=== PATIENT | male | born 1945 | race Caucasian/White ===

== ENCOUNTER 2023-02-23 13:13 | Inpatient (IN) | payer OTHER, SELFPAY ==
--- NOTE | 2023-02-23 | ECG_ITS ---
Test Reason : ALTERED MENTAL Blood Pressure : / mmHG Vent. Rate : 078 BPM Atrial Rate : 078 BPM P-R Int : 174 ms QRS Dur : 078 ms QT Int : 396 ms P-R-T Axes : 042 -30 037 degrees QTc Int : 451 ms Artifact in tracing Normal sinus rhythm Left axis deviation Abnormal ECG When compared with ECG of 27-JUL-2002 09:41, Vent. rate has decreased BY 41 BPM Referred By: Generic ED Physician Electronically Signed By:ALEXANDRE CASTELLANOS
--- NOTE | ~2023-02-23 | US_ITS ---
EXAMINATION: US RETROPERITONEAL LIMITED (RENAL ONLY) CLINICAL INFORMATION: Recurrent UTI. Possible history of bladder cancer. COMPARISON: None available. TECHNIQUE: Real-time imaging of the kidneys. FINDINGS: RIGHT KIDNEY: 11.2 x 4.6 x 5.5 cm (SAG x AP x TRV). The kidney is normal in size, contour, and echogenicity. Renal cortical thickness is normal. No calculi or focal parenchymal lesions. No hydronephrosis. LEFT KIDNEY: 11.2 x 5.2 x 4.8 cm (SAG x AP x TRV). The kidney is normal in size, contour, and echogenicity. Renal cortical thickness is normal. No renal calculi or hydronephrosis. 8 x 10 x 8 mm exophytic cyst in the midpole. US/US renal BI IMPRESSION: Small left renal cyst.
[2023-02-23 13:28] VITALS: BP 152/72; BP 153/66; PULSE 83; PULSE 88; RESP 18; TEMP 37.3; O2SAT 97; O2SAT 98; BMI 25.4
[2023-02-23 14:03] LABS: Basophils Absolute Auto 0.1 X10*3/uL (0.0-0.2); Basophils Percent Auto 0.7 % (0-2); Eosinophils Percent Auto 0.1 % (0-4); Hematocrit 40.1 % (42.0-52.0); Hemoglobin 13.9 g/dl (14.0-18.0); Imm Gran Abs Auto 0.08 X10*3/uL (0.00-0.03); Imm Gran Pct Auto 0.8 % (0.0-0.4); Lymphocytes Absolute Auto 1.5 X10*3/uL (1.2-4.9); Lymphocytes Percent Auto 14.7 % (20-40); MANUAL DIFF FLAG SCAN; Mean Corpuscular HGB Conc 34.7 g/dl (31.0-36.0); Mean Corpuscular Hemoglobin 33.6 pg (27.0-33.0); Mean Corpuscular Volume 96.9 fL (80.0-98.0); Monocytes Absolute Auto 0.8 X10*3/uL (0.1-1.2); Monocytes Percent Auto 7.8 % (2-11); Neutrophils Absolute Auto 7.6 x10*3/uL (2.0-8.3); Neutrophils Percent Auto 75.9 % (45-73); PLT CLUMP 1; Red Blood Count 4.14 X10*6/uL (4.60-5.80); Red Cell Distribution Width 13.4 % (11.0-16.0); SCAN SMEAR FLAG 1
--- NOTE | 2023-02-23 14:09 | PC.NURSE ---
Straight cath for urine with AJ PCT small amount of blood noted will CTM
[2023-02-23 14:22] LABS: Appearance Urine Clear; Color Urine Yellow; Glucose Urine UA >=1000 mg/dL (Negative); Leukocyte Esterase Urine Trace (Negative); Nitrite Urine Positive (Negative); PH 5.5 (5.0-9.0); Specific Gravity - Urine >= 1.030 (1.005-1.025); UMIC TRIGGER UACC YES; Urine Blood Large (3+) (Negative); Urine Ketones 15 mg/dL (Negative); Urine Protein 30 (1+) mg/dL (Neg-Trace)
[2023-02-23 14:27] LABS: Platelet Count 152 X10*3/uL (160-400); SLIDE REVIEW VERIFIED
[2023-02-23 14:31] LABS: Bacteria Urine 2+ (None Seen); Hyaline Casts Urine 0-2 /LPF (0-2); RBC Urine >20 /HPF (0-2); Squamous Epithelial Cell Urine 0-2 /HPF (0-2); UACC Culture Trigger YES; WBC Urine 21-50 /HPF (0-5)
[2023-02-23 14:51] LABS: Anion Gap 13 (12-20)
[2023-02-23 14:57] LABS: Alanine Aminotransferase 40 U/L (0-40); Albumin Level 3.8 g/dL (3.5-5.0); Alkaline Phosphatase 105 U/L (39-117); Aspartate Amino Transferase 30 U/L (5-37); Bilirubin Total 0.6 mg/dL (0.0-1.0); Blood Urea Nitrogen 19 mg/dL (9-16); Calcium 8.5 mg/dL (8.4-10.2); Carbon Dioxide 22 mmol/L (22-29); Chloride 110 mmol/L (96-108); Creatinine Clr Calc Pharmacy 57.2; Estimated Glomerular Filt Rate > 60; Glucose Random 213 mg/dL (60-115); Sodium 141 mmol/L (135-145); Total Protein 6.5 g/dL (6.5-8.0)
--- NOTE | 2023-02-23 15:29 | ED_ITS ---
HPI - Altered Mental Status General Chief Complaint: Altered Mental Status Stated Complaint: AMS per EMS Time Seen by Provider: 02/23/23 13:35 History of Present Illness HPI narrative: Patient is a 77-year-old male presents today with having increasing confusion EMS report patient has increased poly urea. Generalized malaise. Patient is from home. Feel very weak and tired. Sent in for further evaluation. Per EMS patient's sugars greater than 100. Patient is unable to give detailed history. Related Data Allergies Allergy/AdvReac Type Severity Reaction Status Date / Time No Known Allergies Allergy Unverified 08/12/20 14:34 Review of Systems Review of Systems: Unable to provide detailed reviews system secondary patient's change in mental status PMFSH Past Medical History Attestation statement: The following information was validated with the patient. Physical Exam ED Vital Signs: Vital Signs - 24 hr 02/23/23 13:28 Temperature 99.2 F Pulse Rate 83 Respiratory Rate 18 Blood Pressure 153/66 H Pulse Oximetry 97 Oxygen Delivery Method Room Air BMI result Body Mass Index 25.4 Appearance: Alert. Oriented to self and place. No acute distress. Eyes: Pupils equal, round and reactive to light. ENT: Pharynx normal. Neck: Normal inspection. Neck supple. No lymph nodes noted. No crepitus CVS: Normal heart rate and rhythm. Pulses normal. Normal S1 and S2 Respiratory: No respiratory distress. Breath sounds normal. No Wheezing. No rales Abdomen: Soft and nontender. No rigidity. No distention. good BS x4 Skin: Skin warm and dry. Normal skin color. Normal skin turgor. Extremities: No lower extremity edema. Neurovascular intact to all extremities. No Lacerations. No Rash Neuro: Oriented to self and place. No motor deficit. No sensory deficit. Moving all extermities. No slurred speech Medical Decision Making Medical Decision Making MDM Narrative: Patient had a low-grade temperature 99.2 degrees. White count was 10. Positive change in mental status generalized malaise weakness. Patient's urine was grossly infected. No previous culture was noted. Will start patient on Rocephin for empiric coverage. Lactate and culture ordered. Patient require admission IV hydration. In stable condition Differential Diagnosis Differential Diagnoses: The differential diagnosis associated with the presentation includes Urinary tract infection Admission/Observation Consideration of admission/observation: Escalation of care including admission/observation considered Consult Healthcare Provider Management of the patient was discussed with: Hospitalist Lab Data MDM Lab Attestation statement: I reviewed the patient's lab results. 02/23/23 13:30 02/23/23 14:33 Labs: Lab Results 02/23/23 02/23/23 02/23/23 Range/Units 13:30 14:06 14:33 WBC 10.0 (4.8-10.8) X10*3/uL RBC 4.14 L (4.60-5.80) X10*6/uL Hgb 13.9 L (14.0-18.0) g/dl Hct 40.1 L (42.0-52.0) % MCV 96.9 (80.0-98.0) fL MCH 33.6 H (27.0-33.0) pg MCHC 34.7 (31.0-36.0) g/dl RDW 13.4 (11.0-16.0) % Plt Count 152 L (160-400) X10*3/uL MPV Not Reportable Immature Gran % (Auto) 0.8 H (0.0-0.4) % Neut % (Auto) 75.9 H (45-73) % Lymph % (Auto) 14.7 L (20-40) % [place] % (Auto) 7.8 (2-11) % Eos % (Auto) 0.1 (0-4) % Baso % (Auto) 0.7 (0-2) % Lymph # (Auto) 1.5 (1.2-4.9) X10*3/uL [place] # (Auto) 0.8 (0.1-1.2) X10*3/uL Eos # (Auto) 0.0 (0.0-0.4) X10*3/uL Baso # (Auto) 0.1 (0.0-0.2) X10*3/uL Abs Immat Gran (auto) 0.08 H (0.00-0.03) X10*3/uL Absolute Neuts (auto) 7.6 (2.0-8.3) x10*3/uL Absolute Nucleated RBC 0.000 (0.0-0.012) X10*3/uL Nucleated RBC % (auto) 0.0 (0.0-0.2) /100WBC Smear Tech's Comments VERIFIED Sodium 141 (135-145) mmol/L Potassium 4.0 (3.3-5.1) mmol/L Chloride 110 H (96-108) mmol/L Carbon Dioxide 22 (22-29) mmol/L Anion Gap 13 (12-20) BUN 19 H (9-16) mg/dL Creatinine 0.99 (0.5-1.4) mg/dL Estim Creat Clear Calc 57.2 Estimated GFR > 60 Random Glucose 213 H (60-115) mg/dL Calcium 8.5 (8.4-10.2) mg/dL Total Bilirubin 0.6 (0.0-1.0) mg/dL AST 30 (5-37) U/L ALT 40 (0-40) U/L Alkaline Phosphatase 105 (39-117) U/L Total Protein 6.5 (6.5-8.0) g/dL Albumin 3.8 (3.5-5.0) g/dL Urine Color Yellow Urine Appearance Clear Urine pH 5.5 (5.0-9.0) Ur Specific [place] >= 1.030 H (1.005-1.025) Urine Protein 30 (1+) H (Neg-Trace) mg/dL Urine Glucose (UA) >=1000 H (Negative) mg/dL Urine Ketones 15 (Negative) mg/dL Urine Blood Large (3+) H (Negative) Urine Nitrite Positive H (Negative) Ur Leukocyte Esterase Trace H (Negative) Urine RBC >20 H (0-2) /HPF Urine WBC 21-50 H (0-5) /HPF Ur Squamous Epith Cells 0-2 (0-2) /HPF Urine Bacteria 2+ (None Seen) Hyaline Casts 0-2 (0-2) /LPF Independent Historian Clinical information obtained from an independent historian. History obtained from or confirmed by: EMS Discharge Plan Discharge Clinical Impression: Urinary tract infection Patient Disposition: Admitted As Inpatient
[2023-02-23] MEDS: 0.9 % Sodium Chloride 1,000 ML 999 ML IV (16:10)
[2023-02-23] MEDS: cefTRIAXone sodium 1 GM in 0.9 % Sodium Chloride 50 ML IV (16:21)
--- NOTE | 2023-02-23 16:21 | P.HPHOSP_ITS ---
History of Present Illness Date of Service: 02/23/23 Attending physician on admission: Jose Hunter Chief Complaint: confusion This is a 77 year old male who was sent to the ED by family due to confusion. Although the patient knows his name and that he was at [facility] he is unable to provide any significant history that led up to his arrival in the emergency department. He does state that he has been peeing frequently, But denies any abdominal pain, fever, chills. In the emergency department he was afebrile And lab work revealed no leukocytosis. Urinalysis was obtained and was consistent with urinary tract infection. Patient was treated with a dose of IV ceftriaxone in the decision was made to admit him to the hospital for further management. Patient's sister reports that he has been acting strange since Sunday, not monitoring his blood sugar like he typically does. He has no history of underlying cognitive impairment or diagnosis of dementia. She does report he has history of bladder issue and has frequent UTIs; He gets the majority of his medical care through the [place]. Review of Systems Review of Systems: Yes all other systems are reviewed and are negative Constitutional: Constitutional: Denies chills and Denies fever(s) Cardiovascular: Cardiovascular: Denies chest pain Gastrointestinal: Gastrointestinal: Denies abdominal pain [facility] Medical History (Updated 02/23/23 @ 16:25 by SAMI Grimaldo) Diabetes Neuropathy Pertinent family history: patient denies family history of diabetes, although due to confusion may not be accurate historian Social History (Updated 02/23/23 @ 16:26 by SAMI Grimaldo) Household Members: Family Housing: House Do you presently have visiting nurse or other home services: No Alcohol intake: never Patient Tobacco Use Status: Current someday Tobacco user Tobacco use type: Cigarette Cigarette Packs Per Day: 1 Cigarettes Per Day: 9 Years Smoked: 50 e-Cigarette/Vaping Use: Never Used Second Hand Smoke Exposure: Yes service: Yes Current occupational status: retired Meds Allergies Allergy/AdvReac Type Severity Reaction Status Date / Time No Known Allergies Allergy Unverified 08/12/20 14:34 Active Medications: Current Medications Acetaminophen (Acetaminophen 325 Mg Tablet) 650 mg PO Q6H PRN PRN Reason: Pain, Mild (Pain Scale 1-3) Docusate Sodium (Docusate Sodium 100 Mg Capsule) 100 mg PO DAILY PRN PRN Reason: Constipation Enoxaparin Sodium (Enoxaparin Sodium 40 Mg/0.4 Ml Syringe) 40 mg SUBCUT Q24H [facility] Sodium Chloride (Ns) 1,000 mls @ 999 mls/hr IV .Q1H1M [facility] Stop: 02/23/23 16:30 Ceftriaxone Sodium 1 gm/ (Sodium Chloride) 50 mls @ 100 mls/hr IV Q12H [facility] Ondansetron HCl (Ondansetron Hcl 4 Mg/2 Ml Vial) 4 mg IVPUSH Q8H PRN PRN Reason: Nausea and Vomiting Pharmacy Consult (Consult Rx Perform Med Rec) 1 each MISCELLANE ONCE PRN PRN Reason: Consult order Sodium Chloride (0.9 % Sodium Chloride Flush 3 Ml Syringe) 3 ml IVFLUSH QSHIFT [facility] Home Medications Medication Instructions Recorded Confirmed Last Taken Type alfuzosin 10 mg tablet,extended 10 mg PO DAILY 02/23/23 02/23/23 Unknown History release 24 hr aspirin 325 mg tablet 325 mg PO DAILY 02/23/23 02/23/23 Unknown History atenolol 25 mg tablet 25 mg PO DAILY 02/23/23 02/23/23 Unknown History atorvastatin 40 mg tablet 40 mg PO DAILY 02/23/23 02/23/23 Unknown History cholecalciferol (vitamin D3) 50 50 mcg PO DAILY 02/23/23 02/23/23 Unknown History mcg (2,000 unit) tablet (Vitamin D3) diltiazem HCl 240 mg capsule,24 240 mg PO DAILY 02/23/23 02/23/23 Unknown History hr,extended release hydrochlorothiazide 25 mg tablet 25 mg PO DAILY 02/23/23 02/23/23 Unknown History insulin aspart U-100 100 unit/mL See Protocol subcut TIDAC 02/23/23 02/23/23 Unknown History subcutaneous solution (Novolog U-100 Insulin aspart) insulin glargine 100 unit/mL 42 unit subcut DAILY 02/23/23 02/23/23 Unknown History subcutaneous solution (Lantus U-100 Insulin) latanoprost 0.005 % eye drops 1 drp ophthalmic (eye) BEDTIME 02/23/23 02/23/23 Unknown History oxybutynin chloride 5 mg tablet 5 mg PO BID 02/23/23 02/23/23 Unknown History pregabalin 150 mg capsule 150 mg PO BID 02/23/23 02/23/23 Unknown History sennosides 8.6 mg-docusate sodium 2 tab-cap PO BEDTIME 02/23/23 02/23/23 Unknown History 50 mg tablet (Senna-S) Physical Exam Vital Signs and Narrative: Vital Signs: Last Vital Signs Temp 99.2 F 02/23/23 13:28 Pulse 83 02/23/23 13:28 Resp 18 02/23/23 13:28 BP 153/66 H 02/23/23 13:28 Pulse Ox 97 02/23/23 13:28 O2 Del Method Room Air 02/23/23 13:28 BMI result Body Mass Index 25.4 Const: General: alert and awake Nutritional Appearance: average body habitus Orientation/consciousness: oriented to person and oriented to place Resp: Effort & Inspection: normal respiratory effort, able to speak in complete sentences, no respiratory distress and no use of accessory muscles Cardio: Rate: regular rate Heart sounds: S1 normal heart sound present and S2 normal heart sound present GI: Inspection: No distended Palpation (GI): Soft to palpation and nontender Skin: Other: scalp/chest with black hair dye residue Neuro: Other: slow to respond. no focal deficits. appreciated. General: oriented to person and oriented to place Extrem: General: Yes no pedal edema Results Labs 02/23/23 13:30 02/23/23 14:33 Labs: Laboratory Results - last 24 hr 02/23/23 02/23/23 02/23/23 13:30 14:06 14:33 MCV 96.9 MCH 33.6 H MCHC 34.7 RDW 13.4 Plt Count 152 L MPV Not Reportable Immature Gran % (Auto) 0.8 H Neut % (Auto) 75.9 H Lymph % (Auto) 14.7 L [place] % (Auto) 7.8 Eos % (Auto) 0.1 Baso % (Auto) 0.7 Lymph # (Auto) 1.5 [place] # (Auto) 0.8 Eos # (Auto) 0.0 Baso # (Auto) 0.1 Abs Immat Gran (auto) 0.08 H Absolute Neuts (auto) 7.6 Absolute Nucleated RBC 0.000 Nucleated RBC % (auto) 0.0 Smear Tech's Comments VERIFIED Anion Gap 13 Estim Creat Clear Calc 57.2 Estimated GFR > 60 Random Glucose 213 H Calcium 8.5 Total Bilirubin 0.6 AST 30 ALT 40 Alkaline Phosphatase 105 Total Protein 6.5 Albumin 3.8 Urine Color Yellow Urine Appearance Clear Urine pH 5.5 Ur Specific [place] >= 1.030 H Urine Protein 30 (1+) H Urine Glucose (UA) >=1000 H Urine Ketones 15 Urine Blood Large (3+) H Urine Nitrite Positive H Ur Leukocyte Esterase Trace H Urine RBC >20 H Urine WBC 21-50 H Ur Squamous Epith Cells 0-2 Urine Bacteria 2+ Hyaline Casts 0-2 Assessment and Plan (1) Urinary tract infection: Status: Acute Plan this is a 77-year-old male with history of diabetes and peripheral neuropathy who presented to the emergency department with 5 day history of increasing confusion found to have UTI UTI no evidence of sepsis sister reports h/o bladder issue and recurrent UTI no previous imaging/ will obtain abdominal US to eval bladder IV ceftriaxone follow urine culture acute toxic encephalopathy r/t UTI T2DM SSI, POCs, ADA diet thrombocytopenia no baseline for comparison follow CBC med rec pending at this time dvt ppx - lovenox code status - full code attending - dr. hunter patient will likely require 2 midnight stay in the hospital for management of encephalopathy and UTI Time Spent With Patient Time: Total time managing care of this patient today ____ minutes. Quality Stroke Does the patient have a stroke diagnosis?: No VTE Prior VTE?: No VTE Risk Level:: Medical - moderate - high VTE Device Contraindication: N/A - Device Ordered VTE Drug Contraindication: N/A - Med Ordered
[2023-02-23 16:25] VITALS: BP 141/49; PULSE 82; RESP 16; TEMP 37; O2SAT 97
[2023-02-23 16:43] LABS: Lactic Acid 1.2 mmol/L (0.5-2.0)
[2023-02-23 16:44] LABS: COVID-19 Test Negative (Negative); IDNOW Serial# BCCEAD1C
[2023-02-23] MEDS: Enoxaparin Sodium 40 MG/0.4 ML SYRINGE SUBCUT (17:07)
[2023-02-23 17:40] VITALS: BP 139/57; PULSE 52; RESP 16; O2SAT 97
[2023-02-23 18:25] LABS: Glucose, Whole Blood 133 mg/dL (60-115)
--- NOTE | 2023-02-23 19:26 | PC.NURSE ---
Pt states his pharmacy is [facility] and could not provide a city/town. Pt admitted to Med-surg floor 18:10.
[2023-02-23 20:31] LABS: Glucose, Whole Blood 161 mg/dL (60-115)
[2023-02-23] MEDS: Insulin Lispro 100 UNIT/ML 3 ML VIAL SUBCUT (20:55)
[2023-02-23] MEDS: 0.9 % Sodium Chloride Flush 3 ML SYRINGE IVFLUSH (20:55)
[2023-02-23] MEDS: Sennosides/Docusate Sodium TABLET 2 TAB PO (21:03)
[2023-02-23] MEDS: Pregabalin 150 MG CAPSULE PO (21:04)
[2023-02-23] MEDS: Latanoprost 0.005 % Ophth Sol 2.5 ML DROPS 1 DROP EYE-BOTH (21:30)
[2023-02-24 02:48] VITALS: BP 149/65; PULSE 57; RESP 17; TEMP 36.3; O2SAT 96
[2023-02-24 07:22] VITALS: BP 152/69; PULSE 45; RESP 14; TEMP 36.3; O2SAT 95
--- NOTE | 2023-02-24 10:07 | HO.PM.IMPN ---
Subjective Subjective Date of Service: 02/24/23 Review of Systems Follow up UTI feeling better Physical Exam Vital Signs: Vital Signs: Last Vital Signs Temp 97.3 F 02/24/23 07:22 Pulse 45 L 02/24/23 07:22 Resp 14 02/24/23 07:22 BP 152/69 H 02/24/23 07:22 Pulse Ox 95 02/24/23 07:22 O2 Del Method Room Air 02/24/23 07:22 BMI result Body Mass Index 25.4 Appearing in no acute distress lung sounds are clear to auscultation heart regular rate rhythm, clear S1, S2 positive bowel sounds, abdomen is soft, nontender neuro patient is alert x3, no focal deficits Objective Data Active Medications Acetaminophen (Acetaminophen 325 Mg Tablet) 650 mg PO Q6H PRN PRN Reason: Pain, Mild (Pain Scale 1-3) Aspirin (Aspirin 325 Mg Tablet) 325 mg PO DAILY [facility] Atenolol (Atenolol 25 Mg Tablet) 25 mg PO DAILY [facility]; Protocol Atorvastatin Calcium (Atorvastatin Calcium 40 Mg Tablet) 40 mg PO DAILY [facility] Diltiazem HCl (Diltiazem Hcl Cd 240 Mg Cap.Er.Deg) 240 mg PO DAILY [facility]; Protocol Docusate Sodium (Docusate Sodium 100 Mg Capsule) 100 mg PO DAILY PRN PRN Reason: Constipation Enoxaparin Sodium (Enoxaparin Sodium 40 Mg/0.4 Ml Syringe) 40 mg SUBCUT Q24H [facility] Last Admin: 02/23/23 17:07 Dose: 40 mg Documented By: JORGE Glucose (Glucose Gel 15 Gm Gel..Gram.) 15 gm PO Q15M PRN; Protocol PRN Reason: per Hypoglycemia Standing Ord. Hydrochlorothiazide (Hydrochlorothiazide 25 Mg Tablet) 25 mg PO DAILY [facility]; Protocol Ceftriaxone Sodium 1 gm/ (Sodium Chloride) 50 mls @ 100 mls/hr IV Q12H [facility] Dextrose (D10) 250 mls @ 750 mls/hr IV Q15M PRN; Protocol PRN Reason: per Hypoglycemia Standing Ord. Insulin Glargine (Insulin Glargine,Hum.Rec.Anlog 100 Unit/Ml 10 Ml Vial) 35 unit SUBCUT DAILY [facility] Insulin Human Lispro (Insulin Lispro 100 Unit/Ml 3 Ml Vial) 0 unit SUBCUT QIDACHS [facility]; Protocol Last Admin: 02/24/23 07:41 Dose: Not Given Documented By: ARMIN Non-Admin Reason: No Insulin Coverage Latanoprost (Latanoprost 0.005 % Ophth [place] 2.5 Ml Drops) 1 drop EYE-BOTH BEDTIME [facility] Last Admin: 02/23/23 21:30 Dose: 1 drop Documented By: OSVALDO Ondansetron HCl (Ondansetron Hcl 4 Mg/2 Ml Vial) 4 mg IVPUSH Q8H PRN PRN Reason: Nausea and Vomiting Oxybutynin Chloride (Oxybutynin Chloride Er 5 Mg Tab.Er.24) 10 mg PO DAILY [facility] Pharmacy Consult (Consult Rx Perform Med Rec) 1 each MISCELLANE ONCE PRN PRN Reason: Consult order Pregabalin (Pregabalin 150 Mg Capsule) 150 mg PO BID [facility] Last Admin: 02/23/23 21:04 Dose: 150 mg Documented By: OSVALDO Senna/Docusate Sodium (Sennosides/Docusate Sodium Tablet) 2 tab PO BEDTIME [facility] Last Admin: 02/23/23 21:03 Dose: 2 tab Documented By: OSVALDO Sodium Chloride (0.9 % Sodium Chloride Flush 3 Ml Syringe) 3 ml IVFLUSH QSHIFT [facility] Last Admin: 02/23/23 20:55 Dose: 3 ml Documented By: OSVALDO Tamsulosin HCl (Tamsulosin Hcl 0.4 Mg Capsule) 0.4 mg PO DAILY [facility] Vitamin D (Cholecalciferol (Vitamin D3) 25 Mcg Tablet) 50 mcg PO DAILY [facility] Labs 02/23/23 13:30 02/23/23 14:33 Labs: Laboratory Results - last 24 hr 02/23/23 02/23/23 02/23/23 13:30 14:06 14:33 MCV 96.9 MCH 33.6 H MCHC 34.7 RDW 13.4 Plt Count 152 L MPV Not Reportable Immature Gran % (Auto) 0.8 H Neut % (Auto) 75.9 H Lymph % (Auto) 14.7 L [place] % (Auto) 7.8 Eos % (Auto) 0.1 Baso % (Auto) 0.7 Lymph # (Auto) 1.5 [place] # (Auto) 0.8 Eos # (Auto) 0.0 Baso # (Auto) 0.1 Abs Immat Gran (auto) 0.08 H Absolute Neuts (auto) 7.6 Absolute Nucleated RBC 0.000 Nucleated RBC % (auto) 0.0 Smear Tech's Comments VERIFIED Anion Gap 13 Estim Creat Clear Calc 57.2 Estimated GFR > 60 POC Glucose Random Glucose 213 H Lactic Acid Calcium 8.5 Total Bilirubin 0.6 AST 30 ALT 40 Alkaline Phosphatase 105 Total Protein 6.5 Albumin 3.8 Urine Color Yellow Urine Appearance Clear Urine pH 5.5 Ur Specific [place] >= 1.030 H Urine Protein 30 (1+) H Urine Glucose (UA) >=1000 H Urine Ketones 15 Urine Blood Large (3+) H Urine Nitrite Positive H Ur Leukocyte Esterase Trace H Urine RBC >20 H Urine WBC 21-50 H Ur Squamous Epith Cells 0-2 Urine Bacteria 2+ Hyaline Casts 0-2 COVID-19 (BIJAN) COVID-19 Clin Com 02/23/23 02/23/23 02/23/23 16:07 16:16 18:10 MCV MCH MCHC RDW Plt Count MPV Immature Gran % (Auto) Neut % (Auto) Lymph % (Auto) [place] % (Auto) Eos % (Auto) Baso % (Auto) Lymph # (Auto) [place] # (Auto) Eos # (Auto) Baso # (Auto) Abs Immat Gran (auto) Absolute Neuts (auto) Absolute Nucleated RBC Nucleated RBC % (auto) Smear Tech's Comments Anion Gap Estim Creat Clear Calc Estimated GFR POC Glucose 133 H Random Glucose Lactic Acid 1.2 Calcium Total Bilirubin AST ALT Alkaline Phosphatase Total Protein Albumin Urine Color Urine Appearance Urine pH Ur Specific [place] Urine Protein Urine Glucose (UA) Urine Ketones Urine Blood Urine Nitrite Ur Leukocyte Esterase Urine RBC Urine WBC Ur Squamous Epith Cells Urine Bacteria Hyaline Casts COVID-19 (BIJAN) Negative COVID-19 Clin Com See Note 02/23/23 20:25 MCV MCH MCHC RDW Plt Count MPV Immature Gran % (Auto) Neut % (Auto) Lymph % (Auto) [place] % (Auto) Eos % (Auto) Baso % (Auto) Lymph # (Auto) [place] # (Auto) Eos # (Auto) Baso # (Auto) Abs Immat Gran (auto) Absolute Neuts (auto) Absolute Nucleated RBC Nucleated RBC % (auto) Smear Tech's Comments Anion Gap Estim Creat Clear Calc Estimated GFR POC Glucose 161 H Random Glucose Lactic Acid Calcium Total Bilirubin AST ALT Alkaline Phosphatase Total Protein Albumin Urine Color Urine Appearance Urine pH Ur Specific [place] Urine Protein Urine Glucose (UA) Urine Ketones Urine Blood Urine Nitrite Ur Leukocyte Esterase Urine RBC Urine WBC Ur Squamous Epith Cells Urine Bacteria Hyaline Casts COVID-19 (BIJAN) COVID-19 Clin Com Assessment and Plan (1) Urinary tract infection: Status: Acute Plan 77-year-old male with history of diabetes and peripheral neuropathy who presented to the emergency department with 5 day history of increasing confusion found to have UTI UTI no evidence of sepsis sister reports h/o bladder issue and recurrent UTI abdominal US showing small renal cyst IV ceftriaxone follow urine culture acute toxic encephalopathy. resolving r/t UTI T2DM SSI, POCs, ADA diet thrombocytopenia no baseline for comparison follow CBC dvt ppx - lovenox code status - full code attending - Dr. Vivas continue hospital stay for management of encephalopathy and UTI Time Spent With Patient Time: Total time managing care of this patient today ____ minutes. Quality Stroke Does the patient have a stroke diagnosis?: No VTE Prior VTE?: No VTE Risk Level:: Medical - moderate - high VTE Device Contraindication: N/A - Device Ordered VTE Drug Contraindication: N/A - Med Ordered
[2023-02-24 10:30] VITALS: BP 130/60; PULSE 47
[2023-02-24] MEDS: Pregabalin 150 MG CAPSULE PO ×2 (10:44→21:15)
[2023-02-24] MEDS: Cholecalciferol (Vitamin D3) 25 MCG TABLET 50 MCG PO (10:44)
[2023-02-24] MEDS: Atorvastatin Calcium 40 MG TABLET PO (10:45)
[2023-02-24] MEDS: Tamsulosin HCL 0.4 MG CAPSULE PO (10:45)
[2023-02-24] MEDS: hydroCHLOROthiazide 25 MG TABLET PO (10:45)
[2023-02-24] MEDS: oxyBUTYnin chloride ER 5 MG TAB.ER.24 10 MG PO (10:46)
[2023-02-24] MEDS: Insulin Glargine,Hum.rec.anlog 100 UNIT/ML 10 ML VIAL 35 UNIT SUBCUT (10:46)
[2023-02-24 11:32] LABS: Glucose, Whole Blood 229 mg/dL (60-115)
[2023-02-24 11:32] LABS: Glucose, Whole Blood 142 mg/dL (60-115)
[2023-02-24] MEDS: Insulin Lispro 100 UNIT/ML 3 ML VIAL SUBCUT ×2 (11:52→21:15)
[2023-02-24] MEDS: cefTRIAXone sodium 1 GM in 0.9 % Sodium Chloride 50 ML IV (14:40)
[2023-02-24] MEDS: 0.9 % Sodium Chloride Flush 3 ML SYRINGE IVFLUSH ×2 (14:40→21:16)
[2023-02-24 15:17] VITALS: BP 107/52; PULSE 58; RESP 16; TEMP 36.4; O2SAT 97
--- NOTE | 2023-02-24 15:32 | MHC.CM.PN ---
PT REPORTS HE LIVES WITH HIS SISTER AND TWO BROTHERS HE IS INDEPENDENT WITH CARE AND DRIVES PT HAS NO SERVICES AND NO DME [facility] [place] [facility]S HE DECLINES TO COMPLETE A HCP HE IS [facility]OME[facility] DCP: HOME NO SERVICES PT WILL NEED TRANSPORT ARRANGED
[2023-02-24 16:13] LABS: Glucose, Whole Blood 149 mg/dL (60-115)
[2023-02-24] MEDS: Enoxaparin Sodium 40 MG/0.4 ML SYRINGE SUBCUT (16:24)
[2023-02-24 19:10] VITALS: BP 131/61; PULSE 64; RESP 17; TEMP 36.2; O2SAT 95
[2023-02-24 20:47] LABS: Glucose, Whole Blood 265 mg/dL (60-115)
[2023-02-24] MEDS: Latanoprost 0.005 % Ophth Sol 2.5 ML DROPS 1 DROP EYE-BOTH (21:15)
[2023-02-24] MEDS: Sennosides/Docusate Sodium TABLET 2 TAB PO (21:15)
[2023-02-25] MEDS: cefTRIAXone sodium 1 GM in 0.9 % Sodium Chloride 50 ML IV (03:15)
[2023-02-25 03:21] VITALS: BP 137/63; PULSE 53; RESP 17; TEMP 36.6; O2SAT 95
[2023-02-25 07:37] VITALS: BP 156/67; PULSE 57; RESP 18; TEMP 37.1; O2SAT 95
[2023-02-25 07:52] LABS: Glucose, Whole Blood 104 mg/dL (60-115)
--- NOTE | 2023-02-25 09:04 | MHC.CM.PN ---
Addendum entered by Saba Denise 02/25/23 11:19: PT SUCCESSFULLY PICKED UP FOR TRANSPORT Addendum entered by Saba Denise 02/25/23 10:50: LYFT HAS INDICATED A CAR WILL BE COMING AT APPROXIMATELY 1110 HOURS: [facility] CONSULTANT: FREEMAN LOVE OUTBACK PLATE# [id number] Original Note: PT WILL DC HOME TODAY WITH NO SERVICES PT DOES NOT HAVE TRANSPORT HE IS AWARE CM WILL SCHEDULE A LYFT FOR 1100 HOURS AND LET HIM KNOW IF THERE ARE ANY CHANGES DUE TO CAR AVAILABILITY
[2023-02-25] MEDS: Pregabalin 150 MG CAPSULE PO (09:50)
[2023-02-25] MEDS: Atorvastatin Calcium 40 MG TABLET PO (09:50)
[2023-02-25] MEDS: Cholecalciferol (Vitamin D3) 25 MCG TABLET 50 MCG PO (09:50)
[2023-02-25] MEDS: 0.9 % Sodium Chloride Flush 3 ML SYRINGE IVFLUSH (09:50)
[2023-02-25] MEDS: hydroCHLOROthiazide 25 MG TABLET PO (09:50)
[2023-02-25] MEDS: Tamsulosin HCL 0.4 MG CAPSULE PO (09:50)
[2023-02-25] MEDS: oxyBUTYnin chloride ER 5 MG TAB.ER.24 10 MG PO (09:50)
[2023-02-25] MEDS: Insulin Glargine,Hum.rec.anlog 100 UNIT/ML 10 ML VIAL 35 UNIT SUBCUT (09:50)
--- NOTE | 2023-02-25 10:00 | P.DS_ITS ---
DS: Providers Provider Date of Service: 02/25/23 Date of admission: 02/23/23 16:15 Primary care physician: Unknown Physician DS: Diagnosis Discharge Diagnosis (1) Urinary tract infection: Status: Acute DS: Summary Hospital Course Hospital Course: HP as per admitting provider This is a 77 year old male who was sent to the ED by family due to confusion.? Although the patient knows his name and that he was at [facility] he is unable to provide any significant history that led up to his arrival in the emergency department. He does state that he has been peeing frequently, ? But denies any abdominal pain, fever, chills.? In the emergency department he was afebrile ? And lab work revealed no leukocytosis.? Urinalysis was obtained and was consistent with urinary tract infection.? Patient was treated with a dose of IV ceftriaxone in the decision was made to admit him to the hospital for further management.? Patient's sister reports that he has been acting strange since Sunday, not monitoring his blood sugar like he typically does.? He has no history of underlying cognitive impairment or diagnosis of dementia.? She does report he has history of bladder issue and has frequent UTIs; ? [facility] UTI no evidence of sepsis sister reports h/o bladder issue and recurrent UTI abdominal US showing small renal cyst urine culture staph epidermis, responded to rocephin, continue 5 more days ceftin acute toxic encephalopathy. Resolved r/t UTI T2DM SSI, POCs, ADA diet thrombocytopenia no baseline for comparison Time Spent with Patient Time attestation: Total time managing care of this patient today ____ minutes. Discharge coordination time: Greater than 30 minutes Quality: Safe Use of Opioids Does Pt have an Active Cancer Diagnosis on the Problem List?: No Quality: Stroke Does the patient have a stroke diagnosis?: No Physical Exam Vital Signs: Vital Signs: Last Vital Signs Temp 98.7 F 02/25/23 07:37 Pulse 57 02/25/23 07:37 Resp 18 02/25/23 07:37 BP 156/67 H 02/25/23 07:37 Pulse Ox 95 02/25/23 07:37 O2 Del Method Room Air 02/25/23 07:37 BMI result Body Mass Index 25.4 Appearing in no acute distress head is normocephalic atraumatic eyes pupils are PERRLA sclera is anicteric mouth throat mucous membranes are intact and moist neck is supple no lymphadenopathy, no JVD noted lung sounds are clear to auscultation heart regular rate rhythm, clear S1, S2 positive bowel sounds, abdomen is soft, nontender neuro patient is alert x3, no focal deficits DS: Data Data Completed and Pending Labs on day of discharge: Laboratory Results - last 24 hr 02/24/23 02/24/23 02/24/23 07:31 11:28 16:08 POC Glucose 142 H 229 H 149 H 02/24/23 02/25/23 20:43 07:41 POC Glucose 265 H 104 Preliminary micro results at discharge 02/23/23 16:16 Blood Culture - Preliminary Blood - Venous No growth after 24 hours. 02/23/23 16:16 Blood Culture - Preliminary Blood - Venous No growth after 24 hours. Discharge Plan Discharge Anticipated Discharge Date/Time: 02/25/23 09:52 Patient Disposition: Home, Self-Care Discharge Diagnosis: UTI Metabolic encephalopathy Discharge Medications: New cefuroxime axetil 500 mg tablet 500 mg PO BID Qty: 10 0RF Continued latanoprost 0.005 % Drops 1 drp OPHTHALMIC (EYE) BEDTIME atorvastatin 40 mg Tablet 40 mg PO DAILY insulin glargine [Lantus U-100 Insulin] 100 unit/mL Solution 42 unit SUBCUT DAILY aspirin 325 mg Tablet 325 mg PO DAILY sennosides-docusate sodium [Senna-S] 8.6-50 mg Tablet 2 tab-cap PO BEDTIME atenolol 25 mg Tablet 25 mg PO DAILY diltiazem HCl 240 mg Capsule,Extended Release 24 Hr 240 mg PO DAILY insulin aspart U-100 [Novolog U-100 Insulin aspart] 100 unit/mL Solution See Protocol SUBCUT TIDAC Protocol: Insulin Correction Scale Less than or equal to 110 ---- Give (units): 0 111 to 150 Give (units): 0 151 to 200 Give (units): 2 201 to 250 Give (units): 4 251 to 300 Give (units): 6 301 to 350 Give (units): 8 Greater than 350 Give (units): 10 Call MD if Blood Glucose > : 350 hydrochlorothiazide 25 mg Tablet 25 mg PO DAILY oxybutynin chloride 5 mg Tablet 5 mg PO BID alfuzosin 10 mg Tablet Extended Release 24 Hr 10 mg PO DAILY Rx Instructions: administer after the same meal each day pregabalin 150 mg Capsule 150 mg PO BID cholecalciferol (vitamin D3) [Vitamin D3] 50 mcg (2,000 unit) Tablet 50 mcg PO DAILY Discharge Orders: Discharge Order (Routine); Ordered 02/25/23 Ordered By: Nimco Askew Diet: Advance to usual diet Activity on Discharge: As tolerated Stand Alone Forms: Patient Portal Discharge page Care Plan Goals: Complete resolution of symptoms Health Concerns: UTI Metabolic encephalopathy Plan of Treatment: Follow up with primary care provider as needed Take all medications as prescribed Assessment: See discharge
== END 2023-02-25 11:23 | disposition home or self-care (01) | DRG 689 ==
LOC: HO.ED 15:58 → HO.EDOVER 16:30 → HO.S3 16:42
PROVIDERS: Admitting Provider Physician Assistant Medical; Emergency Provider Emergency Medicine Emergency Medical Services; Visit Provider Nurse Practitioner Acute Care
DX: N39.0 Urinary tract infection, site not specified (principal); G92.8 Other toxic encephalopathy; E11.42 Type 2 diabetes mellitus with diabetic polyneuropathy; N28.1 Cyst of kidney, acquired; D69.6 Thrombocytopenia, unspecified; F17.210 Nicotine dependence, cigarettes, uncomplicated; Z20.822 Contact with and (suspected) exposure to COVID-19; Z71.6 Tobacco abuse counseling; Z79.82 Long term (current) use of aspirin; Z79.4 Long term (current) use of insulin; Z79.899 Other long term (current) drug therapy
CPT/HCPCS: 36415; 76775; 80053; 81001; 82947; 83605; 85025; 87040; 87086; 87088; 87186; 87635; 93005; 99285; J0696; J1650

== ENCOUNTER 2023-06-28 04:53 | Emergency (ER) | payer OTHER, SELFPAY ==
[2023-06-28 05:18] VITALS: BP 153/42; PULSE 58; RESP 18; TEMP 36.1; O2SAT 98; BMI 26.9
[2023-06-28 05:19] LABS: Hematocrit 44.9 % (42.0-52.0); Hemoglobin 15.4 g/dl (14.0-18.0); Mean Corpuscular HGB Conc 34.3 g/dl (31.0-36.0); Mean Corpuscular Hemoglobin 33.6 pg (27.0-33.0); Mean Corpuscular Volume 97.8 fL (80.0-98.0); Mean Platelet Volume 9.8 fL (9.4-12.4); Platelet Count 268 X10*3/uL (160-400); Red Blood Count 4.59 X10*6/uL (4.60-5.80); Red Cell Distribution Width 13.2 % (11.0-16.0); White Blood Count 9.4 X10*3/uL (4.8-10.8)
--- NOTE | 2023-06-28 05:33 | ED_ITS ---
HPI - Wound/Laceration General Chief Complaint: Wound/Laceration Stated Complaint: diabetic, bruised moore Time Seen by Provider: 06/28/23 05:27 Source: patient Mode of arrival: ambulatory Limitations: no limitations History of Present Illness HPI narrative: Patient comes to the emergency room complaining of an open wound to the left moore. Patient states that he accidentally scraped it. Patient has chronic venous stasis, patient diabetic. Patient denies fever chills, only localized discomfort but no severe pain. Related Data Home Medications Medication Instructions Recorded Confirmed alfuzosin 10 mg tablet,extended 10 mg PO DAILY 02/23/23 02/23/23 release 24 hr aspirin 325 mg tablet 325 mg PO DAILY 02/23/23 02/23/23 atenolol 25 mg tablet 25 mg PO DAILY 02/23/23 02/23/23 atorvastatin 40 mg tablet 40 mg PO DAILY 02/23/23 02/23/23 cholecalciferol (vitamin D3) 50 50 mcg PO DAILY 02/23/23 02/23/23 mcg (2,000 unit) tablet (Vitamin D3) diltiazem HCl 240 mg capsule,24 240 mg PO DAILY 02/23/23 02/23/23 hr,extended release hydrochlorothiazide 25 mg tablet 25 mg PO DAILY 02/23/23 02/23/23 insulin aspart U-100 100 unit/mL See Protocol subcut TIDAC 02/23/23 02/23/23 subcutaneous solution (Novolog U-100 Insulin aspart) insulin glargine 100 unit/mL 42 unit subcut DAILY 02/23/23 02/23/23 subcutaneous solution (Lantus U-100 Insulin) latanoprost 0.005 % eye drops 1 drp ophthalmic (eye) BEDTIME 02/23/23 02/23/23 oxybutynin chloride 5 mg tablet 5 mg PO BID 02/23/23 02/23/23 pregabalin 150 mg capsule 150 mg PO BID 02/23/23 02/23/23 sennosides 8.6 mg-docusate sodium 2 tab-cap PO BEDTIME 02/23/23 02/23/23 50 mg tablet (Senna-S) Previous Rx's Medication Instructions Recorded cefuroxime axetil 500 mg tablet 500 mg PO BID #10 tabs 02/25/23 cephalexin 500 mg capsule 500 mg PO BID #14 caps 06/28/23 doxycycline hyclate 100 mg capsule 100 mg PO BID #14 caps 06/28/23 Allergies Allergy/AdvReac Type Severity Reaction Status Date / Time No Known Allergies Allergy Unverified 08/12/20 14:34 Review of Systems Review of Systems: Constitutional : No Weight loss, No Fever, No Chills, No Night Sweats, No Fatigue, No Malaise ENT/Mouth : No Hearing loss, No Ear Pain, No Nasal Congestion, No Sinus Pain, No Hoarseness, No sore throat, No Rhinorrhea, No Swallowing Difficulty Eyes: No Eye Pain, No Swelling, No Redness, No Foreign Body, No Discharge, No Vision Changes Cardiovascular : No Chest Pain, No SOB, No Dyspnea on Exertion, No Orthopnea, No Edema, No Palpitations Respiratory : No Cough, No Sputum, No Wheezing, No Smoke Exposure, No Dyspnea Gastrointestinal : No Nausea, No Vomiting, No Diarrhea, No Constipation, No a bdominal Pain, No Hematochezia, No Melena Genitourinary : no irregular bleeding, No Dysuria, No Urinary Frequency, No Hematuria, No Urinary Incontinence, No Urgency, No Flank Pain, No Urinary Flow Changes, No Hesitancy Musculoskeletal : Complaining of an open abrasion on the moore area on the left leg, No joint pain, No Myalgias, No Joint Swelling Skin : No Skin Lesions, No rash Neuro : No Weakness, No Numbness, No Paresthesias, No Loss of Consciousness, No Dizziness, No Headache Psych : No Anxiety/Panic, No Depression, No SI/HI/AH/VH, No Social Issues, Heme/Lymph: No Bruising, No Bleeding,No Lymphadenopathy Endocrine : No Polyuria, No Polydipsia, No Temperature Intolerance [facility] Past Medical History Medical History Diabetes Neuropathy Social History Social History (Updated 02/23/23 @ 16:26 by SAMI Grimaldo) Household Members: Family Housing: House Do you presently have visiting nurse or other home services: No Alcohol intake: never Patient Tobacco Use Status: Current someday Tobacco user Tobacco use type: Cigarette Cigarette Packs Per Day: 1 Cigarettes Per Day: 9 Years Smoked: 50 Smoked in Last 30 Days: Yes e-Cigarette/Vaping Use: Never Used Second Hand Smoke Exposure: Yes Use of substances other than those prescribed or required for medical reasons: No Advance Directives: No Advance Directives Information Provided: No service: Yes Current occupational status: retired Physical Exam Vital Signs: Vital Signs: Last Vital Signs Temp 98.8 F 06/28/23 06:17 Pulse 52 06/28/23 06:17 Resp 14 06/28/23 06:17 BP 126/53 L 06/28/23 06:17 Pulse Ox 95 06/28/23 06:17 O2 Del Method Room Air 06/28/23 06:17 BMI result Body Mass Index 26.9 Const: Other: Appearance: Alert. Oriented X3. No acute distress. Eyes: Pupils equal, round and reactive to light. ENT: Pharynx normal. Neck: Normal inspection. Neck supple. No lymph nodes noted. No crepitus CVS: Normal heart rate and rhythm. Pulses normal. Normal S1 and S2 Respiratory: No respiratory distress. Breath sounds normal. No Wheezing. No rales Abdomen: Soft and nontender. No rigidity. No distention. Skin: Skin warm and dry. Normal skin color. Normal skin turgor. Extremities: No lower extremity edema. No Lacerations. No Rash. Patient has an abrasion to the moore area in the left lower extremity, mild cellulitis, no pus drainage Neuro: Oriented X 3. No motor deficit. No sensory deficit. Moving all extremities. No slurred speech. CN 2 through 12 grossly intact Psych: calm, cooperative, normal affect Course Course Course Narrative: -all of patient's labs pending Medical Decision Making Medical Decision Making [facility] Narrative: My interpretation of labs: White blood cell count normal. Patient's lactic acid is slightly bumped, unlikely to be from infectious etiology. Patient's blood pressure normal, no fever, not tachycardic. Patient given p.o. antibiotics, Keflex and doxycycline, instructed to follow-up with his primary care physician. Differential Diagnosis Differential Diagnoses: The differential diagnosis associated with the presentation includes (Cellulitis, chronic venous stasis derm abrasion) Lab Data [facility] Lab Attestation statement: I reviewed the patient's lab results. 06/28/23 05:13 06/28/23 05:13 Labs: Lab Results 06/28/23 06/28/23 06/28/23 Range/Units 05:13 05:13 05:13 WBC 9.4 (4.8-10.8) X10*3/uL RBC 4.59 L (4.60-5.80) X10*6/uL Hgb 15.4 (14.0-18.0) g/dl Hct 44.9 (42.0-52.0) % MCV 97.8 (80.0-98.0) fL MCH 33.6 H (27.0-33.0) pg MCHC 34.3 (31.0-36.0) g/dl RDW 13.2 (11.0-16.0) % Plt Count 268 D (160-400) X10*3/uL MPV 9.8 (9.4-12.4) fL Absolute Nucleated RBC 0.000 (0.0-0.012) X10*3/uL Nucleated RBC % (auto) 0.0 (0.0-0.2) /100WBC ESR 11 (0-15) MM/HR Sodium 140 (135-145) mmol/L Potassium 3.5 (3.3-5.1) mmol/L Chloride 101 (96-108) mmol/L Carbon Dioxide 23 (22-29) mmol/L Anion Gap 20 (12-20) BUN 19 H (9-16) mg/dL Creatinine 1.08 (0.5-1.4) mg/dL Estim Creat Clear Calc 52.6 Estimated GFR > 60 Random Glucose 202 H (60-115) mg/dL Lactic Acid (0.5-2.0) mmol/L Calcium 9.7 D (8.4-10.2) mg/dL Total Bilirubin 0.7 (0.0-1.0) mg/dL AST 25 (5-37) U/L ALT 34 (0-40) U/L Alkaline Phosphatase 148 H (39-117) U/L C-Reactive Protein 0.16 (< or = 0.50) mg/dL Total Protein 8.1 H (6.5-8.0) g/dL Albumin 4.3 (3.5-5.0) g/dL 06/28/23 06/28/23 Range/Units 05:13 05:14 WBC (4.8-10.8) X10*3/uL RBC (4.60-5.80) X10*6/uL Hgb (14.0-18.0) g/dl Hct (42.0-52.0) % MCV (80.0-98.0) fL MCH (27.0-33.0) pg MCHC (31.0-36.0) g/dl RDW (11.0-16.0) % Plt Count (160-400) X10*3/uL MPV (9.4-12.4) fL Absolute Nucleated RBC (0.0-0.012) X10*3/uL Nucleated RBC % (auto) (0.0-0.2) /100WBC ESR (0-15) MM/HR Sodium (135-145) mmol/L Potassium (3.3-5.1) mmol/L Chloride (96-108) mmol/L Carbon Dioxide (22-29) mmol/L Anion Gap (12-20) BUN (9-16) mg/dL Creatinine (0.5-1.4) mg/dL Estim Creat Clear Calc Estimated GFR Random Glucose (60-115) mg/dL Lactic Acid 2.5 H* (0.5-2.0) mmol/L Calcium (8.4-10.2) mg/dL Total Bilirubin (0.0-1.0) mg/dL AST (5-37) U/L ALT (0-40) U/L Alkaline Phosphatase (39-117) U/L C-Reactive Protein Cancelled (< or = 0.50) mg/dL Total Protein (6.5-8.0) g/dL Albumin (3.5-5.0) g/dL Discharge Plan Discharge Clinical Impression: Cellulitis Patient Disposition: Home, Self-Care Instructions: Cellulitis (ED) Additional Instructions: Please follow-up with your primary care physician tomorrow. If you have any worsening or new symptoms, please return to the emergency room or call 911 Prescriptions: New cephalexin 500 mg capsule 500 mg PO BID Qty: 14 0RF doxycycline hyclate 100 mg capsule 100 mg PO BID Qty: 14 0RF No Action latanoprost 0.005 % Drops 1 drp OPHTHALMIC (EYE) BEDTIME atorvastatin 40 mg Tablet 40 mg PO DAILY insulin glargine [Lantus U-100 Insulin] 100 unit/mL Solution 42 unit SUBCUT DAILY aspirin 325 mg Tablet 325 mg PO DAILY Hold Instructions: Resume on 02/26/23[facility] sennosides-docusate sodium [Senna-S] 8.6-50 mg Tablet 2 tab-cap PO BEDTIME atenolol 25 mg Tablet 25 mg PO DAILY diltiazem HCl 240 mg Capsule,Extended Release 24 Hr 240 mg PO DAILY insulin aspart U-100 [Novolog U-100 Insulin aspart] 100 unit/mL Solution See Protocol SUBCUT TIDA Protocol: Insulin Correction Scale Less than or equal to 110 ---- Give (units): 0 111 to 150 Give (units): 0 151 to 200 Give (units): 2 201 to 250 Give (units): 4 251 to 300 Give (units): 6 301 to 350 Give (units): 8 Greater than 350 Give (units): 10 Call MD if Blood Glucose > : 350 hydrochlorothiazide 25 mg Tablet 25 mg PO DAILY oxybutynin chloride 5 mg Tablet 5 mg PO BID alfuzosin 10 mg Tablet Extended Release 24 Hr 10 mg PO DAILY Rx Instructions: administer after the same meal each day pregabalin 150 mg Capsule 150 mg PO BID cholecalciferol (vitamin D3) [Vitamin D3] 50 mcg (2,000 unit) Tablet 50 mcg PO DAILY cefuroxime axetil 500 mg tablet 500 mg PO BID Qty: 10 0RF
[2023-06-28 05:36] LABS: Alanine Aminotransferase 34 U/L (0-40); Albumin Level 4.3 g/dL (3.5-5.0); Alkaline Phosphatase 148 U/L (39-117); Anion Gap 20 (12-20); Aspartate Amino Transferase 25 U/L (5-37); Bilirubin Total 0.7 mg/dL (0.0-1.0); Blood Urea Nitrogen 19 mg/dL (9-16); C Reactive Protein 0.16 mg/dL (< or = 0.50); Calcium 9.7 mg/dL (8.4-10.2); Carbon Dioxide 23 mmol/L (22-29); Chloride 101 mmol/L (96-108); Creatinine Clr Calc Pharmacy 52.6; Estimated Glomerular Filt Rate > 60; Glucose Random 202 mg/dL (60-115); Potassium 3.5 mmol/L (3.3-5.1); Sodium 140 mmol/L (135-145); Total Protein 8.1 g/dL (6.5-8.0)
[2023-06-28 05:40] LABS: Lactic Acid 2.5 mmol/L (0.5-2.0)
[2023-06-28 05:57] LABS: Erythrocyte Sedimentation Rate 11 MM/HR (0-15)
[2023-06-28 06:17] VITALS: BP 126/53; PULSE 52; RESP 14; TEMP 37.1; O2SAT 95
[2023-06-28] MEDS: cephALEXin 500 MG CAPSULE PO (07:07)
[2023-06-28] MEDS: Doxycycline Monohydrate 100 MG CAPSULE PO (07:07)
[2023-06-28 07:18] LABS: Reflex Lactate? Lactic Acid Added
== END 2023-06-28 07:12 | disposition home or self-care (01) ==
PROVIDERS: Emergency Provider Emergency Medicine
DX: L03.116 Cellulitis of left lower limb (principal); F17.210 Nicotine dependence, cigarettes, uncomplicated; Z71.6 Tobacco abuse counseling; Z79.899 Other long term (current) drug therapy
CPT/HCPCS: 36415; 80053; 83605; 85027; 85652; 86140; 87040; 99283; 99284

== ENCOUNTER 2023-07-24 17:01 | Emergency (ER) | payer OTHER, SELFPAY ==
--- NOTE | ~2023-07-24 | CT_ITS ---
EXAMINATION: CT HEAD WITHOUT CONTRAST CLINICAL INFORMATION: Altered mental status. COMPARISON: None. TECHNIQUE: Contiguous axial imaging was performed from the skullbase to vertex without intravenous administration of contrast. This CT examination was performed using dose optimization techniques as appropriate, variously including the following: *Automated exposure control *Adjustment of mA and/or kV according to patient size (this includes techniques or standardized protocols for targeted exams where dose is matched to indication/reason for exam; i.e. extremities or head) *Use of iterative reconstruction technique DLP: 1322 mGy-cm. FINDINGS: There is no evidence of acute intracranial hemorrhage or territorial infarction. No abnormal mass effect or midline shift is seen. Noguera to white matter differentiation is well preserved. No extra-axial fluid collections are identified. Generalized parenchymal volume loss noted with concordant ex vacuo prominence of the ventricles. Hbeo-oc-hippbrtq chronic white matter microangiopathic changes are visible. The osseous structures and soft tissues are normal. The mastoid air cells are well aerated. Mild mucosal thickening noted in the ethmoid air cells. CT/CT head/brain wo IV con IMPRESSION: No acute intracranial hemorrhage or territorial infarction.
[2023-07-24 17:19] VITALS: BP 134/53; BP 162/92; PULSE 78; PULSE 99; RESP 16; TEMP 37.1; O2SAT 97; BMI 24.9
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
[2023-07-24 20:00] VITALS: BP 137/53; PULSE 55; RESP 16; TEMP 37.7; O2SAT 97
[2023-07-24 20:16] LABS: MANUAL DIFF FLAG NO
[2023-07-24 20:17] LABS: Basophils Absolute Auto 0.1 X10*3/uL (0.0-0.2); Eosinophils Percent Auto 0.3 % (0-4); Hematocrit 39.2 % (42.0-52.0); Hemoglobin 13.5 g/dl (14.0-18.0); Imm Gran Abs Auto 0.06 X10*3/uL (0.00-0.03); Imm Gran Pct Auto 0.7 % (0.0-0.4); Lymphocytes Absolute Auto 2.2 X10*3/uL (1.2-4.9); Lymphocytes Percent Auto 25.1 % (20-40); Mean Corpuscular HGB Conc 34.4 g/dl (31.0-36.0); Mean Corpuscular Hemoglobin 33.8 pg (27.0-33.0); Mean Platelet Volume 9.5 fL (9.4-12.4); Monocytes Absolute Auto 0.8 X10*3/uL (0.1-1.2); Monocytes Percent Auto 9.1 % (2-11); Neutrophils Absolute Auto 5.7 x10*3/uL (2.0-8.3); Neutrophils Percent Auto 63.8 % (45-73); Platelet Count 238 X10*3/uL (160-400); Red Cell Distribution Width 13.1 % (11.0-16.0); White Blood Count 8.9 X10*3/uL (4.8-10.8)
[2023-07-24 20:30] LABS: Alanine Aminotransferase 17 U/L (0-40); Albumin Level 3.9 g/dL (3.5-5.0); Alkaline Phosphatase 96 U/L (39-117); Anion Gap 13 (12-20); Aspartate Amino Transferase 19 U/L (5-37); Bilirubin Total 0.5 mg/dL (0.0-1.0); Blood Urea Nitrogen 20 mg/dL (9-16); Carbon Dioxide 28 mmol/L (22-29); Chloride 105 mmol/L (96-108); Creatinine Clr Calc Pharmacy 50.5; Estimated Glomerular Filt Rate > 60; Glucose Random 191 mg/dL (60-115); Potassium 3.9 mmol/L (3.3-5.1); Sodium 142 mmol/L (135-145); Total Protein 7.1 g/dL (6.5-8.0)
[2023-07-24 22:00] VITALS: BP 147/51; PULSE 51; RESP 16; TEMP 36.8; O2SAT 97
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
[2023-07-24 23:32] VITALS: O2SAT 96
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
[2023-07-25 00:29] LABS: Appearance Urine Clear; Color Urine Yellow; Glucose Urine UA 500 mg/dL (Negative); Leukocyte Esterase Urine Small (1+) (Negative); Nitrite Urine Negative (Negative); Specific Gravity - Urine >= 1.030 (1.005-1.025); UMIC TRIGGER UACC YES; Urine Blood Negative (Negative); Urine Ketones Trace mg/dL (Negative); Urine Protein 30 (1+) mg/dL (Neg-Trace)
[2023-07-25 00:31] LABS: Bacteria Urine None Seen (None Seen); Hyaline Casts Urine 0-2 /LPF (0-2); RBC Urine 0-2 /HPF (0-2); Squamous Epithelial Cell Urine 0-2 /HPF (0-2); UACC Culture Trigger YES; WBC Urine >50 /HPF (0-5)
[2023-07-25 01:53] VITALS: BP 131/44; PULSE 48; RESP 13; TEMP 37.1; O2SAT 97
--- NOTE | 2023-07-25 03:59 | MHC.EDTECH ---
Asked patient if he would like to be cleaned or if he would like to shower. Patient refused although he is visibly dirty.
[2023-07-25 04:06] VITALS: BP 132/38; PULSE 46; RESP 16; TEMP 36.9; O2SAT 96
--- NOTE | 2023-07-25 05:48 | MHC.EDTECH ---
Patient was bathed, [place] catheter placed, all linens changed.
[2023-07-25 06:32] VITALS: BP 139/42; PULSE 46; RESP 16; TEMP 36.8; O2SAT 97
[2023-07-25 06:48] LABS: Glucose, Whole Blood 176 mg/dL (60-115)
[2023-07-25 07:38] VITALS: BP 139/42; PULSE 46; O2SAT 97
[2023-07-25 08:23] VITALS: BP 131/46; PULSE 49; RESP 16; TEMP 36.7; O2SAT 97
--- NOTE | 2023-07-25 08:26 | PC.NURSE ---
rn to rn report given to fabian. pt aware of plan of care for transfer to the overflow unit.
[2023-07-25 08:45] LABS: COVID-19 Test Negative (Negative); IDNOW Serial# 6674DD1D
--- NOTE | 2023-07-25 08:55 | PC.NURSE ---
pt alert and oriented to self and siuation only - pt verbalizing that the year is 1941. pt resting comfortably in bed watching tv. tech from main ED states that pt has not had breakfast - will notify kitchen that he needs diabetic diet tray. bed alarm turned on. call martinez placed within reach.
--- NOTE | 2023-07-25 09:20 | PC.NURSE ---
pt resting comfortably eating breakfast. medication administered per provider order. pt tolerated non-crushed po medications well. bed alarm turned on. call martinez placed within reach.
--- NOTE | 2023-07-25 11:10 | PC.NURSE ---
pt incontinent of large amount of loose foul smelling stool with mucus, will notify provider to obtain order for stool sample
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
--- NOTE | 2023-07-25 11:44 | PC.NURSE ---
pt resting comfortably in no apparent distress. pt watching television. bed alarm turned on. call martinez placed within reach.
--- NOTE | 2023-07-25 13:34 | PC.NURSE ---
pt's bed alarm not working - transferred pt to bed where alarm was working properly. pt was incontinent of urine, pt cleaned and placed in [facility]. condom catheter applied per provider order. pt toleration application of catheter well. pt resting comfortably in no apparent distress. bed alarm turned on. call martinez placed within reach.
[2023-07-25 13:38] LABS: Glucose, Whole Blood 278 mg/dL (60-115)
[2023-07-25 13:58] VITALS: BP 108/52; PULSE 59; RESP 14; TEMP 36.7; O2SAT 97
--- NOTE | 2023-07-25 16:02 | MHC.CM.ED ---
Insurance auth has been obtained by Paola Atkins on [employer]. Alert BLS booked for 415pm. Med [facility] with chart. Patient, sister Andrew Hodge RN, Latasha GALLARDO aware. Continue to monitor for d/c needs.
--- NOTE | 2023-07-25 16:34 | MHC.EDTECH ---
PT WAS INCONTINENT OF URINE AND SMALL AMOUNT OF STOOL ,CARE GIVEN ,EMS HERE TO TRANSPORT PATIENT TO SNF .
== END 2023-07-25 17:11 ==
PROVIDERS: Physician Assistant; Emergency Provider Emergency Medicine
DX: F03.918 Unspecified dementia, unspecified severity, with other behavioral disturbance (principal); R26.2 Difficulty in walking, not elsewhere classified; Z79.899 Other long term (current) drug therapy; Z20.822 Contact with and (suspected) exposure to COVID-19; Z20.828 Contact with and (suspected) exposure to other viral communicable diseases
CPT/HCPCS: 36415; 70450; 80053; 81001; 82947; 85025; 87086; 87635; 97162; 99285

== ENCOUNTER 2023-09-17 09:25 | Inpatient (IN) | payer OTHER, SELFPAY ==
--- NOTE | ~2023-09-17 | XR_ITS ---
EXAMINATION: XR HIP, RIGHT CLINICAL INFORMATION: Pain after fall COMPARISON: None available. TECHNIQUE: Two views of the right hip. Pelvis, AP view FINDINGS: Osseous pelvic ring is intact. Alignment is normal at the pubic symphysis and sacroiliac joints. Joint space of each hip is maintained. There is an acute, complete, mildly displaced (mildly distracted) fracture of the femoral neck. No other fractures are seen. The acetabulum is intact. XR/XR hip RT w PEL1V IMPRESSION: There is an acute, mildly displaced fracture of the right femoral neck.
--- NOTE | ~2023-09-17 | XR_ITS ---
EXAMINATION: XR CHEST CLINICAL INFORMATION: Preoperative COMPARISON: None available. TECHNIQUE: Frontal view of the chest was obtained. FINDINGS: Lungs are well expanded and clear. No evidence of pulmonary consolidation, pneumothorax or pleural effusion. Cardiac silhouette is normal in size. There is atherosclerotic calcification of the aortic arch. Pulmonary vascular pattern is normal. Small osteophytes (mild osteoarthritis) of glenohumeral joints. XR/XR chest 1V IMPRESSION: No acute pulmonary disease.
--- NOTE | ~2023-09-17 | CT_ITS ---
EXAMINATION: CT CERVICAL SPINE WITHOUT CONTRAST CLINICAL INFORMATION: Status post fall. COMPARISON: None available. TECHNIQUE: Noncontrast CT imaging examination of the cervical spine is performed. Axial images and multiplanar reformatted images are reviewed. This CT examination was performed using dose optimization techniques as appropriate, variously including the following: *Automated exposure control *Adjustment of mA and/or kV according to patient size (this includes techniques or standardized protocols for targeted exams where dose is matched to indication/reason for exam; i.e. extremities or head) *Use of iterative reconstruction technique DLP: After acquisition of the topogram, the DLP for the cervical spine is 318.52 mGy-cm FINDINGS: There is lack of lordotic curvature of the cervical spine. The craniocervical junction is normal. The occipital condyles, dens and atlantodental articulation are intact. There is degenerative osseous spurring at the atlantodental articulation. The vertebral body heights and alignment are maintained. No fractures in the anterior or posterior elements. No prevertebral soft tissue edema or soft tissue hematoma. The disc spaces are preserved. The facet joints are unremarkable. No evidence of stenosis of the central spinal canal or neural foramina. Lung apices are unremarkable. The thyroid gland is partially included in [id number] and the left lobe of the thyroid is larger than the right lobe. The gland appears to be mildly enlarged and heterogeneous. Therefore, thyroid ultrasound follow-up is recommended for further characterization. CT/CT cervical spine wo IV con IMPRESSION: * No acute findings within the cervical spine. No fracture or malalignment. * Thyroid gland appears to be mildly enlarged and heterogeneous. Thyroid ultrasound follow-up is recommended for further characterization, if deemed clinically appropriate.
--- NOTE | ~2023-09-17 | CT_ITS ---
EXAMINATION: CT HEAD WITHOUT CONTRAST CLINICAL INFORMATION: Status post fall. COMPARISON: 07/24/2023 TECHNIQUE: Contiguous axial imaging was performed from the skull base to vertex without intravenous administration of contrast. This CT examination was performed using dose optimization techniques as appropriate, variously including the following: *Automated exposure control *Adjustment of mA and/or kV according to patient size (this includes techniques or standardized protocols for targeted exams where dose is matched to indication/reason for exam; i.e. extremities or head) *Use of iterative reconstruction technique DLP: 696 mGy-cm FINDINGS: There is no evidence of acute intracranial hemorrhage or territorial infarction. No mass effect or midline shift is seen. [place] to white matter differentiation is preserved. No extra-axial fluid collections are identified. Generalized parenchymal volume loss noted with concordant ex vacuo prominence of the ventricles. Pzye-[id number] chronic white matter microangiopathic changes are visible. The calvarium is. The mastoid air cells are well aerated. Imaged paranasal sinuses are clear. CT/CT head/brain wo IV con IMPRESSION: No acute intracranial pathology.
[2023-09-17 09:33] VITALS: BP 140/64; PULSE 83; O2SAT 93
[2023-09-17 09:38] VITALS: BP 120/56; PULSE 77; RESP 18; TEMP 36.9; O2SAT 95; BMI 24.1
--- NOTE | 2023-09-17 09:48 | ED_ITS ---
HPI - Fall General Chief Complaint: Fall Stated Complaint: FALL,R HIP PAIN, FROM SNF PER EMS Time Seen by Provider: 09/17/23 09:34 Source: patient and EMS Mode of arrival: EMS Limitations: no limitations History of Present Illness HPI Narrative: 77 yo male with history of HTN, DM2, dementia, neuropathy, hx UTI who presents to the ER for evaluation of right hip pain after he slipped while trying to put his socks on this morning and fell. He fell onto his right hip. He denies hitting his head or losing consciousness. He was unable to get up on his own. EMS was called. He was placed in a cervical collar and brought the ER for further evaluation. He denies any chest pain or dizziness prior to the fall. Denies any current chest pain, abdominal pain, no headache, neck pain or other joint pain aside from the right hip. MD complaint: fall Onset (ago): hour(s) Fall from: chair Fall witnessed: no Place fall occurred: [facility] Loss of consciousness: none Prolonged down time: no Symptoms prior to fall: none Context: tripped/slipped Location of injury: pelvis (right hip) Severity: moderate Quality: stabbing and aching Associated symptoms (after fall): unable to walk Related Data Home Medications Medication Instructions Recorded Confirmed alfuzosin 10 mg tablet,extended 10 mg PO DAILY 02/23/23 09/17/23 release 24 hr atorvastatin 40 mg tablet 40 mg PO DAILY 02/23/23 09/17/23 insulin aspart U-100 100 unit/mL See Protocol subcut TIDAC 02/23/23 09/17/23 subcutaneous solution (Novolog U-100 Insulin aspart) latanoprost 0.005 % eye drops 1 drp ophthalmic (eye) BEDTIME 02/23/23 09/17/23 pregabalin 150 mg capsule 150 mg PO BID 02/23/23 09/17/23 sennosides 8.6 mg-docusate sodium 2 tab-cap PO BEDTIME 02/23/23 09/17/23 50 mg tablet (Senna-S) aspirin 81 mg tablet,delayed 81 mg PO DAILY 09/17/23 09/17/23 release cholecalciferol (vitamin D3) 25 25 mcg PO DAILY 09/17/23 09/17/23 mcg (1,000 unit) tablet diltiazem HCl 240 mg 240 mg PO DAILY 09/17/23 09/17/23 tablet,extended release 24 hr (Cardizem LA) insulin glargine 100 unit/mL 35 unit subcut DAILY 09/17/23 09/17/23 subcutaneous solution lisinopril 5 mg tablet 5 mg PO DAILY 09/17/23 09/17/23 metformin 500 mg tablet 500 mg PO DAILY 09/17/23 09/17/23 Allergies Allergy/AdvReac Type Severity Reaction Status Date / Time No Known Allergies Allergy Unverified 08/12/20 14:34 Review of Systems 2 Review of Systems: Yes all other systems are reviewed and are negative [facility] Past Medical History Medical History (Updated 09/17/23 @ 15:16 by SAMI Ragsdale) BPH (benign prostatic hyperplasia) History of UTI Hypertension Neuropathy Diabetes Social History Social History Household Members: Family Housing: House Do you presently have visiting nurse or other home services: No Alcohol intake: never Patient Tobacco Use Status: Current someday Tobacco user Tobacco use type: Cigarette Cigarette Packs Per Day: 1 Cigarettes Per Day: 9 Years Smoked: 50 e-Cigarette/Vaping Use: Never Used Second Hand Smoke Exposure: Yes Advance Directives: Yes Advance Directives on File: Yes Advance Directives Date on File: 07/24/23 service: Yes Current occupational status: retired Physical Exam 2 Vital Signs: Vital Signs: Last Vital Signs Temp 98.5 F 09/17/23 09:38 Pulse 77 09/17/23 09:38 Resp 18 09/17/23 09:38 BP 120/56 L 09/17/23 09:38 Pulse Ox 95 09/17/23 09:38 O2 Del Method Room Air 09/17/23 09:38 BMI result Body Mass Index 24.1 Appearance: Alert, elderly male. Oriented X2. No acute distress. Head: normocephalic, atraumatic. Eyes: Pupils equal, round and reactive to light. ENT: Pharynx normal. No tonsillar swelling or exudate. Neck: Normal inspection. Neck supple. CVS: Normal heart rate and rhythm. Pulses normal. Respiratory: No respiratory distress. Breath sounds normal. Abdomen: Soft and nontender. +BS x4 Skin: Skin warm and dry. Normal skin color. Normal skin turgor. No rashes. Extremities: No lower extremity edema. No joint swelling. Right RLE externally rotated and slightly shortened, tender to the right lateral proximal thigh and hip. NV intact distally Neuro/psych: Oriented X 2. Nonfocal. CN II-XII intact. Normal speech and cognition. Medications Administered Discontinued Medications Generic Name Dose Route Start Last Admin Trade Name Corbin PRN Reason Stop Dose Admin Acetaminophen 975 mg 09/17/23 12:22 09/17/23 12:36 Acetaminophen 325 Mg Tablet PO 09/17/23 12:23 975 mg ONCE ONE Administration Medical Decision Making Medical Decision Making MDM Narrative: 77 yo male with history of dementia, DM, neuropathy, and HTN presenting from [facility] for evaluation of right hip pain s/p mechanical fall. Concern for acute fracture w/ external rotation and shortening of the leg. He is in minimal pain at rest, mild tenderness with palpation. C collared cleared after negative CT head/neck. no midline tenderness on exam Xray hip reviewed - he has an acute fracture of the right hip. labs unremarkable aside from mild anemia and leukocytosis of 15K, likely reactive and due to stress. awaiting UA Dr. Hagen TT at 11:53am, awaiting recs and ok for admit here w/ surgical repair by either of the other orthopedic surgeons Sapphire GALLARDO from ortho confirmed Dr. Kay and Dr. Quispe are available for surgical intervention this week. will admit to medicine Differential Diagnosis Differential Diagnoses: The differential diagnosis associated with the presentation includes right hip fracture, hip contusion, syncope, cardiac arrythmia Admission/Observation Consideration of admission/observation: Escalation of care including admission/observation considered Consult Healthcare Provider Management of the patient was discussed with: Hospitalist and Shrimp Peeling Machine Operator Dr. Hagen from Orthopedics Lab [facility] [place] Lab Attestation statement: I reviewed the patient's lab results. leukocytosis likely a stress reaction mild anemia, slightly worse from prior 09/17/23 11:56 09/17/23 11:56 Labs: Lab Results 09/17/23 Range/Units 11:56 WBC 15.8 H (4.8-10.8) X10*3/uL RBC 3.58 L (4.60-5.80) X10*6/uL Hgb 11.8 L (14.0-18.0) g/dl Hct 34.3 L (42.0-52.0) % MCV 95.8 (80.0-98.0) fL MCH 33.0 (27.0-33.0) pg MCHC 34.4 (31.0-36.0) g/dl RDW 13.5 (11.0-16.0) % Plt Count 239 (160-400) X10*3/uL MPV 10.5 (9.4-12.4) fL Immature Gran % (Auto) 0.8 H (0.0-0.4) % Neut % (Auto) 84.1 H (45-73) % Lymph % (Auto) 8.4 L (20-40) % Daniels % (Auto) 6.0 (2-11) % Eos % (Auto) 0.1 (0-4) % Baso % (Auto) 0.6 (0-2) % Lymph # (Auto) 1.3 (1.2-4.9) X10*3/uL Daniels # (Auto) 0.9 (0.1-1.2) X10*3/uL Eos # (Auto) 0.0 (0.0-0.4) X10*3/uL Baso # (Auto) 0.1 (0.0-0.2) X10*3/uL Abs Immat Gran (auto) 0.12 H (0.00-0.03) X10*3/uL Absolute Neuts (auto) 13.3 H (2.0-8.3) x10*3/uL Absolute Nucleated RBC 0.000 (0.0-0.012) X10*3/uL Nucleated RBC % (auto) 0.0 (0.0-0.2) /100WBC Sodium 139 (135-145) mmol/L Potassium 4.7 D (3.3-5.1) mmol/L Chloride 107 (96-108) mmol/L Carbon Dioxide 24 (22-29) mmol/L Anion Gap 13 (12-20) BUN 16 (9-16) mg/dL Creatinine 0.88 (0.5-1.4) mg/dL Estim Creat Clear Calc 62.1 Estimated GFR > 60 Random Glucose 113 (60-115) mg/dL Calcium 9.0 (8.4-10.2) mg/dL Magnesium 1.9 (1.6-2.6) mg/dL Total Bilirubin 0.5 (0.0-1.0) mg/dL Direct Bilirubin 0.1 (0.0-0.5) mg/dL AST 27 (5-37) U/L ALT 25 (0-40) U/L Alkaline Phosphatase 96 (39-117) U/L Total Protein 7.0 (6.5-8.0) g/dL Albumin 3.5 (3.5-5.0) g/dL Independent Interpretation I performed an independent interpretation of an: Plain X-Ray and CT Scan Interpretation: CT scan head and neck reviewed - no acute bleed or edema, no appreciated fracture, agree w/ radiology read cxr clear lungs hip x/ray w/ acute fracture, agree w/ radiology read ekg w/ normal sinus rhythm w/ 1st degree AV block, CT interval 240, HR 69 bpm, artifact present. no ST segment elevations or depression Radiology Impression Discussion of test interpretation with radiology: I have reviewed the radiologist's reading. Radiologist Impression: EXAMINATION: XR HIP, RIGHT CLINICAL INFORMATION: Pain after fall COMPARISON: None available. TECHNIQUE: Two views of the right hip. Pelvis, AP view FINDINGS: Osseous pelvic ring is intact. Alignment is normal at the pubic symphysis and sacroiliac joints. Joint space of each hip is maintained. There is an acute, complete, mildly displaced (mildly distracted) fracture of the femoral neck. No other fractures are seen. The acetabulum is intact. XR/XR hip RT w PEL1V IMPRESSION: There is an acute, mildly displaced fracture of the right femoral neck. XR/XR chest 1V IMPRESSION: No acute pulmonary disease. CT/CT head/brain wo IV con IMPRESSION: No acute intracranial pathology. CT/CT cervical spine wo IV con IMPRESSION: * No acute findings within the cervical spine. No fracture or malalignment. * Thyroid gland appears to be mildly enlarged and heterogeneous. Thyroid ultrasound follow-up is recommended for further characterization, if deemed clinically appropriate. Independent Historian Clinical information obtained from an independent historian. History obtained from or confirmed by: EMS External Record Review External record reviewed: Prior outpatient labs Prescription Management I considered prescription management with: Pain Medication Chronic Conditions Patient?s care impacted by: Hypertension and Other (dementia) Critical Care Time Critical Care Time Critical Care Time: Yes Total Critical Care Time: 32 Attestation: I have personally provided critical care time exclusive of time spent on separately billable procedures. Time includes review of lab data, radiology results, discussion with consultants, and monitoring for potential decompensation. Intervention performed as documented. Discharge Plan Discharge Clinical Impression: Closed fracture of right hip Patient Disposition: Admitted As Inpatient
--- NOTE | 2023-09-17 11:31 | ECG_ITS ---
Test Reason : broken hip Blood Pressure : / mmHG Vent. Rate : 069 BPM Atrial Rate : 069 BPM P-R Int : 240 ms QRS Dur : 072 ms QT Int : 420 ms P-R-T Axes : 045 -17 041 degrees QTc Int : 450 ms Sinus rhythm with 1st degree A-V block Otherwise normal ECG When compared with ECG of 23-FEB-2023 13:29, WI interval has increased Referred By: Anni Beal Electronically Signed By:LI SHUKLA MD
[2023-09-17 12:02] LABS: MANUAL DIFF FLAG NO
[2023-09-17 12:11] LABS: Basophils Absolute Auto 0.1 X10*3/uL (0.0-0.2); Basophils Percent Auto 0.6 % (0-2); Eosinophils Percent Auto 0.1 % (0-4); Hematocrit 34.3 % (42.0-52.0); Hemoglobin 11.8 g/dl (14.0-18.0); Imm Gran Abs Auto 0.12 X10*3/uL (0.00-0.03); Imm Gran Pct Auto 0.8 % (0.0-0.4); Lymphocytes Absolute Auto 1.3 X10*3/uL (1.2-4.9); Lymphocytes Percent Auto 8.4 % (20-40); Mean Corpuscular HGB Conc 34.4 g/dl (31.0-36.0); Mean Corpuscular Volume 95.8 fL (80.0-98.0); Mean Platelet Volume 10.5 fL (9.4-12.4); Monocytes Absolute Auto 0.9 X10*3/uL (0.1-1.2); Neutrophils Absolute Auto 13.3 x10*3/uL (2.0-8.3); Neutrophils Percent Auto 84.1 % (45-73); Platelet Count 239 X10*3/uL (160-400); Red Blood Count 3.58 X10*6/uL (4.60-5.80); Red Cell Distribution Width 13.5 % (11.0-16.0); White Blood Count 15.8 X10*3/uL (4.8-10.8)
[2023-09-17 12:23] LABS: Alanine Aminotransferase 25 U/L (0-40); Albumin Level 3.5 g/dL (3.5-5.0); Alkaline Phosphatase 96 U/L (39-117); Anion Gap 13 (12-20); Aspartate Amino Transferase 27 U/L (5-37); Bilirubin Direct 0.1 mg/dL (0.0-0.5); Bilirubin Total 0.5 mg/dL (0.0-1.0); Blood Urea Nitrogen 16 mg/dL (9-16); Carbon Dioxide 24 mmol/L (22-29); Chloride 107 mmol/L (96-108); Creatinine Clr Calc Pharmacy 62.1; Estimated Glomerular Filt Rate > 60; Glucose Random 113 mg/dL (60-115); Magnesium 1.9 mg/dL (1.6-2.6); Potassium 4.7 mmol/L (3.3-5.1); Sodium 139 mmol/L (135-145)
[2023-09-17] MEDS: Acetaminophen 325 MG TABLET 975 MG PO (12:36)
--- NOTE | 2023-09-17 14:23 | P.HPHOSP_ITS ---
History of Present Illness Date of Service: 09/17/23 Attending physician on admission: Jose Ward Chief Complaint: fall 77 year old male with history of htn, insulin dependent type 2 diabetes, unspecified dementia, diabetic polyneuropathy, hx uti presented to the ED earlier today via EMS for evaluation of a fall with right hip pain. He reports he slipped and fell trying to put his socks on this morning and fell directly onto the right hip. Denies any prodrome including lightheadedness, palpitations, shortness of breath, chest pain. Denies any head strike or loss of consciousness. However, was unable to get up on his own and called EMS. On arrival, vital stable. There is a leukocytosis of 15.8. H/H 11.8/34.3%. Creatinine baseline, electrolyte levels normal. Hepatic function panel. Head CT negative for any acute intracranial abnormality. CT cervical spine negative for any acute finding including fracture or malalignment. Incidentally seen is mildly enlarged and heterogenous thyroid gland, follow-up ultrasound recommended. Chest x-ray negative for any acute disease. Right Hip/pelvis x- ray shows an acute, mildly displaced fracture of the right femoral neck. Patient given 975 mg Tylenol for pain. He did discuss case with Orthopedic surgery recommending admission to medicine. Review of Systems 2 Review of Systems: General: No fevers, malaise, unintentional weight loss Cardiovascular: No chest pain, palpitations, or leg edema Respiratory: No shortness of breath, wheezing, cough GI: No abdominal pain, nausea, vomiting, diarrhea, constipation, melena, hematochezia : No dysuria, hematuria, increased urinary frequency, decreased urinary output MSK: No myalgia, back pain. +R hip pain Neuro: No headaches, weakness, paresthesias Skin: No rashes or lesions [facility] Medical History (Updated 09/17/23 @ 15:16 by SAMI Ragsdale) BPH (benign prostatic hyperplasia) History of UTI Hypertension Neuropathy Diabetes Social History Household Members: Family Housing: House Do you presently have visiting nurse or other home services: No Alcohol intake: never Patient Tobacco Use Status: Current someday Tobacco user Tobacco use type: Cigarette Cigarette Packs Per Day: 1 Cigarettes Per Day: 9 Years Smoked: 50 e-Cigarette/Vaping Use: Never Used Second Hand Smoke Exposure: Yes Advance Directives: Yes Advance Directives on File: Yes Advance Directives Date on File: 07/24/23 service: Yes Current occupational status: retired Meds Allergies Allergy/AdvReac Type Severity Reaction Status Date / Time No Known Allergies Allergy Unverified 08/12/20 14:34 Home Medications Medication Instructions Recorded Confirmed Last Taken Type alfuzosin 10 mg tablet,extended 10 mg PO DAILY 02/23/23 09/17/23 Unknown History release 24 hr atorvastatin 40 mg tablet 40 mg PO DAILY 02/23/23 09/17/23 Unknown History insulin aspart U-100 100 unit/mL See Protocol subcut TIDAC 02/23/23 09/17/23 Unknown History subcutaneous solution (Novolog U-100 Insulin aspart) latanoprost 0.005 % eye drops 1 drp ophthalmic (eye) BEDTIME 02/23/23 09/17/23 Unknown History pregabalin 150 mg capsule 150 mg PO BID 02/23/23 09/17/23 Unknown History sennosides 8.6 mg-docusate sodium 2 tab-cap PO BEDTIME 02/23/23 09/17/23 Unknown History 50 mg tablet (Senna-S) aspirin 81 mg tablet,delayed 81 mg PO DAILY 09/17/23 09/17/23 Unknown History release cholecalciferol (vitamin D3) 25 25 mcg PO DAILY 09/17/23 09/17/23 Unknown History mcg (1,000 unit) tablet diltiazem HCl 240 mg 240 mg PO DAILY 09/17/23 09/17/23 Unknown History tablet,extended release 24 hr (Cardizem LA) insulin glargine 100 unit/mL 35 unit subcut DAILY 09/17/23 09/17/23 Unknown History subcutaneous solution lisinopril 5 mg tablet 5 mg PO DAILY 09/17/23 09/17/23 Unknown History metformin 500 mg tablet 500 mg PO DAILY 09/17/23 09/17/23 Unknown History Physical Exam 2 Vital Signs and Narrative: Vital Signs: Last Vital Signs Temp 98.5 F 09/17/23 09:38 Pulse 77 09/17/23 09:38 Resp 18 09/17/23 09:38 BP 120/56 L 09/17/23 09:38 Pulse Ox 95 09/17/23 09:38 O2 Del Method Room Air 09/17/23 09:38 BMI result Body Mass Index 24.1 Constitutional - Awake and Alert, No apparent distress Eyes - PERRLA, EOMI Cardiovascular - S1S2, RRR, No edema. 1+ pedal pulses Respiratory - Normal lung expansion, Normal respiratory effort, No respiratory distress, CTA bilaterally Gastrointestinal - NT / ND; +BS; No rebound or guarding Extremities - no calf tenderness bilaterally, no swelling Musculoskeletal - RLE with slight external rotation. Pt guarding RLE. Sensation in tact distal to fracture. ttp lateral R hip Skin - Warm/Dry Neurological - Alert & oriented x3 Results Labs 09/17/23 11:56 09/17/23 11:56 Labs: Laboratory Results - last 24 hr 09/17/23 11:56 MCV 95.8 MCH 33.0 MCHC 34.4 RDW 13.5 Plt Count 239 MPV 10.5 Immature Gran % (Auto) 0.8 H Neut % (Auto) 84.1 H Lymph % (Auto) 8.4 L [place] % (Auto) 6.0 Eos % (Auto) 0.1 Baso % (Auto) 0.6 Lymph # (Auto) 1.3 [place] # (Auto) 0.9 Eos # (Auto) 0.0 Baso # (Auto) 0.1 Abs Immat Gran (auto) 0.12 H Absolute Neuts (auto) 13.3 H Absolute Nucleated RBC 0.000 Nucleated RBC % (auto) 0.0 Anion Gap 13 Estim Creat Clear Calc 62.1 Estimated GFR > 60 Random Glucose 113 Calcium 9.0 Magnesium 1.9 Total Bilirubin 0.5 Direct Bilirubin 0.1 AST 27 ALT 25 Alkaline Phosphatase 96 Total Protein 7.0 Albumin 3.5 Imaging Radiologist's Impressions: Impressions Cervical Spine CT 09/17/23 10:22 IMPRESSION: * No acute findings within the cervical spine. No fracture or malalignment. * Thyroid gland appears to be mildly enlarged and heterogeneous. Thyroid ultrasound follow-up is recommended for further characterization, if deemed clinically appropriate. Head CT 09/17/23 10:22 IMPRESSION: No acute intracranial pathology. Hip/Pelvis X-Ray 09/17/23 11:30 IMPRESSION: There is an acute, mildly displaced fracture of the right femoral neck. Chest X-Ray 09/17/23 11:35 IMPRESSION: No acute pulmonary disease. Assessment and Plan (1) Closed fracture of right hip: Qualifiers: Encounter type: initial encounter Qualified Code(s): S72.001A - Fracture of unspecified part of neck of right femur, initial encounter for closed fracture Status: Acute Plan 77 year old male with history of htn, insulin dependent type 2 diabetes, unspecified dementia, diabetic polyneuropathy, hx uti admitted for R mildly displaced hip fracture. # right mildly displaced femoral neck fracture -admit to medicine per Orthopedic surgery -ortho surgery consult -pain management p.r.n. -physical therapy per Orthopedic surgery -hold asa -npo after midnight #Acute leukocytosis -likely reactive 2/2 fall with hip fracture -follow cbc # insulin-dependent type 2 diabetes -POC glucose -diabetic diet -dose adjusted basal insulin -Humalog on sliding scale # hypertension -hold lisinopril preoperatively. Continue diltiazem # diabetic polyneuropathy -continue Lyrica # urinary incontinence/BPH -continue oxybutynin, alfuzosin #HLD -continue statin DVT prophylaxis-heparin DNR/DNI per [facility]OL[facility] form Patient requires inpatient stay at least 2 midnights for management of acute displaced femoral neck fracture requiring expert consultation with probable ORIF Time Spent With Patient Time: Total time managing care of this patient today ____ minutes. Quality Stroke Does the patient have a stroke diagnosis?: No VTE Prior VTE?: No VTE Risk Level:: Medical - moderate - high VTE Device Contraindication: Treatment Not Indicated VTE Drug Contraindication: N/A - Med Ordered
--- NOTE | 2023-09-17 14:46 | PHA.MEDREC ---
Pharmacy Consult ? Medication Reconciliation Pharmacy has completed the medication reconciliation. List from Paola Atkins
[2023-09-17 16:14] VITALS: RESP 16
[2023-09-17 16:26] VITALS: BP 99/52; PULSE 72; RESP 16; TEMP 36.6; O2SAT 95
[2023-09-17] MEDS: 0.9 % Sodium Chloride Flush 3 ML SYRINGE IVFLUSH (16:42)
[2023-09-17] MEDS: Heparin Sodium,Porcine 5,000 UNIT/ML VIAL 5000 UNIT SUBCUT (16:42)
--- NOTE | 2023-09-17 16:53 | PC.NURSE ---
[place] cath placed on patient, pt not reporting pain at this time, reporting he only has pain when he is moving. Does not want morphine at this time. Pt is a/ox4, and all needs at met
[2023-09-17 18:43] LABS: Glucose, Whole Blood 113 mg/dL (60-115)
[2023-09-17 20:39] LABS: Glucose, Whole Blood 185 mg/dL (60-115)
[2023-09-17] MEDS: Insulin Lispro 100 UNIT/ML 3 ML VIAL SUBCUT (20:42)
[2023-09-17] MEDS: Sennosides/Docusate Sodium TABLET 2 TAB PO (20:43)
[2023-09-17] MEDS: Pregabalin 150 MG CAPSULE PO (20:43)
[2023-09-17 20:57] VITALS: BP 128/59; PULSE 78; RESP 18; TEMP 36.8; O2SAT 95
--- NOTE | 2023-09-17 20:59 | MHC.EDTECH ---
Patient changed over to inpatient bed
[2023-09-17] MEDS: ondansetron HCL 4 MG/2 ML VIAL IVPUSH (21:34)
[2023-09-17] MEDS: Morphine Sulfate 4 MG/ML CARTRIDGE 2 MG IVPUSH (21:34)
--- NOTE | 2023-09-17 21:44 | PC.NURSE ---
pt reports 7/10 pain. pt medicated according to mar. lights dimmed curtain pulled for privacy
[2023-09-17 22:00] LABS: Appearance Urine Clear; Color Urine Yellow; Glucose Urine UA 100 mg/dL (Negative); Leukocyte Esterase Urine Trace (Negative); Nitrite Urine Negative (Negative); UMIC TRIGGER UACC YES; Urine Blood Negative (Negative); Urine Ketones Negative (Negative); Urine Protein Negative (Neg-Trace)
[2023-09-17 22:05] LABS: Bacteria Urine None Seen (None Seen); Hyaline Casts Urine 0-2 /LPF (0-2); RBC Urine 0-2 /HPF (0-2); Squamous Epithelial Cell Urine 0-2 /HPF (0-2); WBC Urine 0-5 /HPF (0-5)
[2023-09-18] MEDS: 0.9 % Sodium Chloride Flush 3 ML SYRINGE IVFLUSH ×2 (01:11→20:54)
[2023-09-18] MEDS: Heparin Sodium,Porcine 5,000 UNIT/ML VIAL 5000 UNIT SUBCUT (03:19)
[2023-09-18 05:23] LABS: MANUAL DIFF FLAG NO
[2023-09-18 05:24] LABS: Basophils Absolute Auto 0.1 X10*3/uL (0.0-0.2); Basophils Percent Auto 0.7 % (0-2); Eosinophils Percent Auto 0.2 % (0-4); Hematocrit 34.5 % (42.0-52.0); Hemoglobin 11.9 g/dl (14.0-18.0); Imm Gran Abs Auto 0.05 X10*3/uL (0.00-0.03); Imm Gran Pct Auto 0.5 % (0.0-0.4); Lymphocytes Absolute Auto 1.5 X10*3/uL (1.2-4.9); Lymphocytes Percent Auto 13.8 % (20-40); Mean Corpuscular HGB Conc 34.5 g/dl (31.0-36.0); Mean Corpuscular Hemoglobin 32.8 pg (27.0-33.0); Mean Platelet Volume 9.8 fL (9.4-12.4); Monocytes Absolute Auto 0.9 X10*3/uL (0.1-1.2); Monocytes Percent Auto 8.5 % (2-11); Neutrophils Absolute Auto 8.2 x10*3/uL (2.0-8.3); Neutrophils Percent Auto 76.3 % (45-73); Platelet Count 199 X10*3/uL (160-400); Red Blood Count 3.63 X10*6/uL (4.60-5.80); Red Cell Distribution Width 13.2 % (11.0-16.0); White Blood Count 10.8 X10*3/uL (4.8-10.8)
[2023-09-18 05:47] LABS: Anion Gap 16 (12-20); Blood Urea Nitrogen 15 mg/dL (9-16); Calcium 9.2 mg/dL (8.4-10.2); Carbon Dioxide 23 mmol/L (22-29); Chloride 105 mmol/L (96-108); Creatinine Clr Calc Pharmacy 61.4; Estimated Glomerular Filt Rate > 60; Glucose Random 143 mg/dL (60-115); Potassium 4.3 mmol/L (3.3-5.1); Sodium 140 mmol/L (135-145)
[2023-09-18] MEDS: Morphine Sulfate 4 MG/ML CARTRIDGE 2 MG IVPUSH (06:02)
[2023-09-18 06:05] VITALS: BP 129/49; PULSE 78; RESP 18; TEMP 36.9; O2SAT 95
--- NOTE | 2023-09-18 06:14 | PC.NURSE ---
This lead technical writer assumed care at 0600, PT AO to self, place and year. Pt reports 05/05 right hip pain, pt medicated per JAN. [place] cath in place, output of 850 ml. Pt resting in hospital bed with no apparent distress. Pt aware of plan.
[2023-09-18 07:22] VITALS: BP 129/43; PULSE 73; RESP 13; O2SAT 93
[2023-09-18 07:29] LABS: Glucose, Whole Blood 136 mg/dL (60-115)
--- NOTE | 2023-09-18 08:22 | PC.NURSE ---
assumed care of pt at 0700. pt awake and alert. resting quietly on stretcher in no apparent distress. pt denies pain osiris. NPO since at least midnight. surgery consult completed by Dr. Kay this am. awaiting surgery schedule. pt's sister called asking how pt was doing. left phone number with this rn. Aeysha (sister): [phone]
--- NOTE | 2023-09-18 09:57 | MHC.CM.PN ---
CM MET WITH PT WHO REPORTED HE LIVES WITH HIS SISTER AND TWO BROTHERS HE DENIED USING [employer]ME [employer] OR HAVING SERVICES PT HAS A HCP ON FILE AND A DIAGNOSIS OF DEMENTIA CM CALLED PTS HCP/SISTER, SKYLA [phone] SHE REPORTS PT HAS BEEN AT [facility] FOR LTC SHE EXPECTS HE WILL RETURN THERE FOR STR AND THEN TRANSITION BACK TO LTC PT UNSURE IF HE HAS MEDICARE, HIS SISTER DOES NOT THINK HE DOES DCP: RETURN TO [facility] VIA BLS PT WILL NEED A PT EVAL
[2023-09-18 10:04] VITALS: BP 143/50; PULSE 70; RESP 20; O2SAT 94
[2023-09-18] MEDS: Atorvastatin Calcium 40 MG TABLET PO (10:07)
[2023-09-18] MEDS: Pregabalin 150 MG CAPSULE PO ×2 (10:07→20:40)
[2023-09-18] MEDS: Cholecalciferol (Vitamin D3) 25 MCG TABLET PO (10:07)
[2023-09-18] MEDS: Tamsulosin HCL 0.4 MG CAPSULE PO (10:07)
[2023-09-18] MEDS: oxyCODONE HCl Immed Release 5 MG TABLET PO ×2 (10:11→20:52)
--- NOTE | 2023-09-18 10:32 | PC.NURSE ---
pt medicated per jan, despite NPO status, per Dr. Ward. held Lantus and Diltiazem per Dr. Ward. still waiting for update on when pt will be going to surgery. abx flagging as 0731 to be administered 1 hour prior to surgery in [facility]. pt reporting pain, medicated per jan. resting quietly on stretcher in no apparent distress. rr even/unlabored. call martinez within pt reach. plan of care ongoing. pt other sister, Sultana, called and sts she will be in to visit pt at some point today.
--- NOTE | 2023-09-18 12:13 | PC.NURSE ---
still waiting for update from ortho and schedule for surgery.
[2023-09-18 13:30] LABS: Glucose, Whole Blood 119 mg/dL (60-115)
--- NOTE | 2023-09-18 14:58 | HO.PM.IMPN ---
Subjective Subjective Date of Service: 09/18/23 Interval History: Being followed for right hip fracture resting in bed comfortably offers no acute complaints, remained hemodynamically stable overnight, is NPO for possible orthopedic intervention Review of Systems Unable to obtain detailed review of system due to underlying dementia. Physical Exam Vital Signs: Vital Signs: Last Vital Signs Temp 98.5 F 09/18/23 06:05 Pulse 70 09/18/23 10:04 Resp 20 09/18/23 10:04 BP 143/50 H 09/18/23 10:04 Pulse Ox 94 09/18/23 10:04 O2 Del Method Room Air 09/18/23 10:04 BMI result Body Mass Index 24.1 Const: Other: General awake alert, resting in bed, in no acute distress. Neck no JVD. CVS regular rate rhythm, Respiratory lungs clear to auscultation, no respiratory distress, no wheeze, no rhonchi. Gastrointestinal abdomen soft, obese, non tender, bowel sounds audible,no guarding , no rigidity. Extremities no edema. Right lower extremity externally rotated Neuro moving all 4 extremity ,speech clear. Skin no rash Objective Data Active Medications Acetaminophen (Acetaminophen 325 Mg Tablet) 650 mg PO Q6H PRN PRN Reason: Pain, Mild (Pain Scale 1-3) Atorvastatin Calcium (Atorvastatin Calcium 40 Mg Tablet) 40 mg PO DAILY [facility] Last Admin: 09/18/23 10:07 Dose: 40 mg Documented By: SEDA Dextrose (Dextrose 50 % 25 Gm/50 Ml Syringe) 25 gm IVPUSH Q15M PRN; Protocol PRN Reason: per Hypoglycemia Standing Ord. Diltiazem HCl (Diltiazem Hcl Cd 180 Mg Cap.Er.24h) 180 mg PO DAILY [facility]; Protocol Last Admin: 09/18/23 10:22 Dose: Not Given Documented By: SEDA Non-Admin Reason: Physician Held Med Docusate Sodium (Docusate Sodium 100 Mg Capsule) 100 mg PO DAILY PRN PRN Reason: Constipation Glucose (Glucose Gel 15 Gm Gel..Gram.) 15 gm PO Q15M PRN; Protocol PRN Reason: per Hypoglycemia Standing Ord. Heparin Sodium (Porcine) (Heparin Sodium,Porcine 5,000 Unit/Ml Vial) 5,000 unit SUBCUT Q12H [facility] Last Admin: 09/18/23 03:19 Dose: 5,000 unit Documented By: UNIQUE Insulin Glargine (Insulin Glargine,Hum.Rec.Anlog 100 Unit/Ml 10 Ml Vial) 25 unit SUBCUT DAILY [facility] Last Admin: 09/18/23 10:22 Dose: Not Given Documented By: SEDA Non-Admin Reason: Physician Held Med Insulin Human Lispro (Insulin Lispro 100 Unit/Ml 3 Ml Vial) 0 unit SUBCUT QIDACHS [facility]; Protocol Last Admin: 09/18/23 13:37 Dose: Not Given Documented By: SEDA Non-Admin Reason: No Insulin Coverage Latanoprost (Latanoprost 0.005 % Ophth [place] 2.5 Ml Drops) 1 drop EYE-BOTH BEDTIME [facility] Last Admin: 09/17/23 20:43 Dose: Not Given Documented By: UNIQUE Non-Admin Reason: Med Not Available Morphine Sulfate (Morphine Sulfate 4 Mg/Ml Cartridge) 2 mg IVPUSH Q6H PRN; Protocol PRN Reason: Pain, Severe (Pain Scale 7-10) Last Admin: 09/18/23 06:02 Dose: 2 mg Documented By: DEREK Ondansetron HCl (Ondansetron Hcl 4 Mg/2 Ml Vial) 4 mg IVPUSH Q8H PRN PRN Reason: Nausea and Vomiting Last Admin: 09/17/23 21:34 Dose: 4 mg Documented By: UNIQUE Oxycodone HCl (Oxycodone Hcl Immed Release 5 Mg Tablet) 5 mg PO Q6H PRN PRN Reason: Pain, Moderate(Pain Scale 4-6) Last Admin: 09/18/23 10:11 Dose: 5 mg Documented By: SEDA Pregabalin (Pregabalin 150 Mg Capsule) 150 mg PO BID [facility] Last Admin: 09/18/23 10:07 Dose: 150 mg Documented By: SEDA Senna/Docusate Sodium (Sennosides/Docusate Sodium Tablet) 2 tab PO BEDTIME [facility] Last Admin: 09/17/23 20:43 Dose: 2 tab Documented By: UNIQUE Sodium Chloride (0.9 % Sodium Chloride Flush 3 Ml Syringe) 3 ml IVFLUSH QSHIFT [facility] Last Admin: 09/18/23 07:05 Dose: Not Given Documented By: SEDA Non-Admin Reason: Med Not Available Tamsulosin HCl (Tamsulosin Hcl 0.4 Mg Capsule) 0.4 mg PO DAILY [facility] Last Admin: 09/18/23 10:07 Dose: 0.4 mg Documented By: SEDA Vitamin D (Cholecalciferol (Vitamin D3) 25 Mcg Tablet) 25 mcg PO DAILY [facility] Last Admin: 09/18/23 10:07 Dose: 25 mcg Documented By: SEDA Labs 09/18/23 05:18 09/18/23 05:18 Labs: Laboratory Results - last 24 hr 09/17/23 09/17/23 09/17/23 18:40 20:36 21:46 MCV MCH MCHC RDW Plt Count MPV Immature Gran % (Auto) Neut % (Auto) Lymph % (Auto) [place] % (Auto) Eos % (Auto) Baso % (Auto) Lymph # (Auto) [place] # (Auto) Eos # (Auto) Baso # (Auto) Abs Immat Gran (auto) Absolute Neuts (auto) Absolute Nucleated RBC Nucleated RBC % (auto) Anion Gap Estim Creat Clear Calc Estimated GFR POC Glucose 113 185 H Random Glucose Calcium Urine Color Yellow Urine Appearance Clear Urine pH 6.0 Ur Specific [place] 1.020 Urine Protein Negative Urine Glucose (UA) 100 H Urine Ketones Negative Urine Blood Negative Urine Nitrite Negative Ur Leukocyte Esterase Trace H Urine RBC 0-2 Urine WBC 0-5 Ur Squamous Epith Cells 0-2 Urine Bacteria None Seen Hyaline Casts 0-2 09/18/23 09/18/23 09/18/23 05:18 07:25 13:27 MCV 95.0 MCH 32.8 MCHC 34.5 RDW 13.2 Plt Count 199 MPV 9.8 Immature Gran % (Auto) 0.5 H Neut % (Auto) 76.3 H Lymph % (Auto) 13.8 L [place] % (Auto) 8.5 Eos % (Auto) 0.2 Baso % (Auto) 0.7 Lymph # (Auto) 1.5 [place] # (Auto) 0.9 Eos # (Auto) 0.0 Baso # (Auto) 0.1 Abs Immat Gran (auto) 0.05 H Absolute Neuts (auto) 8.2 Absolute Nucleated RBC 0.000 Nucleated RBC % (auto) 0.0 Anion Gap 16 Estim Creat Clear Calc 61.4 Estimated GFR > 60 POC Glucose 136 H 119 H Random Glucose 143 H Calcium 9.2 Urine Color Urine Appearance Urine pH Ur Specific [place] Urine Protein Urine Glucose (UA) Urine Ketones Urine Blood Urine Nitrite Ur Leukocyte Esterase Urine RBC Urine WBC Ur Squamous Epith Cells Urine Bacteria Hyaline Casts Assessment and Plan (1) Closed fracture of right hip: Status: Acute Plan 77 year old male with history of htn, insulin dependent type 2 diabetes, unspecified dementia, diabetic polyneuropathy, hx uti admitted for R mildly displaced hip fracture. # right mildly displaced femoral neck fracture Not complaining of pain resting comfortably -good pain control , continue current pain management with IV morphine and oxycodone -seen by Ortho they recommend surgery at a.m. will place on diet and keep him NPO after midnight. #Acute leukocytosis -WBC normalize was likely reactive 2/2 fall with hip fracture # insulin-dependent type 2 diabetes -stable blood sugars , follow POC glucose, diabetic diet, basal insulin, continue Humalog on sliding scale # hypertension -stable blood pressures, hold lisinopril , Continue low-dose diltiazem # diabetic polyneuropathy -continue Lyrica # urinary incontinence/BPH -continue oxybutynin, alfuzosin #HLD-continue statin DVT prophylaxis-heparin DNR/DNI per MOLST form Patient requires continued inpatient stay for management of acute displaced femoral neck fracture requiring expert consultation with probable ORIF Time Spent With Patient Time: Total time managing care of this patient today ____ minutes. Quality Stroke Does the patient have a stroke diagnosis?: No VTE Prior VTE?: No VTE Risk Level:: Medical - moderate - high VTE Device Contraindication: Treatment Not Indicated VTE Drug Contraindication: N/A - Med Ordered
--- NOTE | 2023-09-18 16:03 | P.CONOP_ITS ---
History of Present Illness HPI Consult date: 09/18/23 Chief complaint: hip fx PMFSH Past Medical History Medical History (Updated 09/17/23 @ 15:16 by SAMI Ragsdale) BPH (benign prostatic hyperplasia) History of UTI Hypertension Neuropathy Diabetes Social History Social History Household Members: Family Housing: House Do you presently have visiting nurse or other home services: No Alcohol intake: never Patient Tobacco Use Status: Never used Tobacco Tobacco use type: Cigarette Cigarette Packs Per Day: 1 Cigarettes Per Day: 9 Years Smoked: 50 e-Cigarette/Vaping Use: Never Used Second Hand Smoke Exposure: Yes Advance Directives: Yes Advance Directives on File: Yes Advance Directives Date on File: 07/24/23 Nutrition Risks: No Nutritional Risk service: Yes Current occupational status: retired Meds Allergies Allergy/AdvReac Type Severity Reaction Status Date / Time No Known Allergies Allergy Unverified 08/12/20 14:34 Active Medications: Current Medications Acetaminophen (Acetaminophen 325 Mg Tablet) 650 mg PO Q6H PRN PRN Reason: Pain, Mild (Pain Scale 1-3) Atorvastatin Calcium (Atorvastatin Calcium 40 Mg Tablet) 40 mg PO DAILY [facility] Last Admin: 09/18/23 10:07 Dose: 40 mg Dextrose (Dextrose 50 % 25 Gm/50 Ml Syringe) 25 gm IVPUSH Q15M PRN; Protocol PRN Reason: per Hypoglycemia Standing Ord. Diltiazem HCl (Diltiazem Hcl Cd 180 Mg Cap.Er.24h) 180 mg PO DAILY [facility]; Protocol Last Admin: 09/18/23 10:22 Dose: Not Given Docusate Sodium (Docusate Sodium 100 Mg Capsule) 100 mg PO DAILY PRN PRN Reason: Constipation Glucose (Glucose Gel 15 Gm Gel..Gram.) 15 gm PO Q15M PRN; Protocol PRN Reason: per Hypoglycemia Standing Ord. Heparin Sodium (Porcine) (Heparin Sodium,Porcine 5,000 Unit/Ml Vial) 5,000 unit SUBCUT Q12H [facility] Last Admin: 09/18/23 15:43 Dose: Not Given Insulin Glargine (Insulin Glargine,Hum.Rec.Anlog 100 Unit/Ml 10 Ml Vial) 25 unit SUBCUT DAILY [facility] Last Admin: 09/18/23 10:22 Dose: Not Given Insulin Human Lispro (Insulin Lispro 100 Unit/Ml 3 Ml Vial) 0 unit SUBCUT QIDACHS [facility]; Protocol Last Admin: 09/18/23 13:37 Dose: Not Given Latanoprost (Latanoprost 0.005 % Ophth Vannessa 2.5 Ml Drops) 1 drop EYE-BOTH BEDTIME [facility] Last Admin: 09/17/23 20:43 Dose: Not Given Morphine Sulfate (Morphine Sulfate 4 Mg/Ml Cartridge) 3 mg IVPUSH Q4H PRN; Protocol PRN Reason: Pain, Severe (Pain Scale 7-10) Ondansetron HCl (Ondansetron Hcl 4 Mg/2 Ml Vial) 4 mg IVPUSH Q8H PRN PRN Reason: Nausea and Vomiting Last Admin: 09/17/23 21:34 Dose: 4 mg Oxycodone HCl (Oxycodone Hcl Immed Release 5 Mg Tablet) 5 mg PO Q6H PRN PRN Reason: Pain, Moderate(Pain Scale 4-6) Last Admin: 09/18/23 10:11 Dose: 5 mg Pregabalin (Pregabalin 150 Mg Capsule) 150 mg PO BID [facility] Last Admin: 09/18/23 10:07 Dose: 150 mg Senna/Docusate Sodium (Sennosides/Docusate Sodium Tablet) 2 tab PO BEDTIME [facility] Last Admin: 09/17/23 20:43 Dose: 2 tab Sodium Chloride (0.9 % Sodium Chloride Flush 3 Ml Syringe) 3 ml IVFLUSH QSHIFT [facility] Last Admin: 09/18/23 15:20 Dose: Not Given Tamsulosin HCl (Tamsulosin Hcl 0.4 Mg Capsule) 0.4 mg PO DAILY [facility] Last Admin: 09/18/23 10:07 Dose: 0.4 mg Vitamin D (Cholecalciferol (Vitamin D3) 25 Mcg Tablet) 25 mcg PO DAILY [facility] Last Admin: 09/18/23 10:07 Dose: 25 mcg Home Medications Medication Instructions Recorded Confirmed Last Taken Type alfuzosin 10 mg tablet,extended 10 mg PO DAILY 02/23/23 09/17/23 Unknown History release 24 hr atorvastatin 40 mg tablet 40 mg PO DAILY 02/23/23 09/17/23 Unknown History insulin aspart U-100 100 unit/mL See Protocol subcut TIDAC 02/23/23 09/17/23 Unknown History subcutaneous solution (Novolog U-100 Insulin aspart) latanoprost 0.005 % eye drops 1 drp ophthalmic (eye) BEDTIME 02/23/23 09/17/23 Unknown History pregabalin 150 mg capsule 150 mg PO BID 02/23/23 09/17/23 Unknown History sennosides 8.6 mg-docusate sodium 2 tab-cap PO BEDTIME 02/23/23 09/17/23 Unknown History 50 mg tablet (Senna-S) aspirin 81 mg tablet,delayed 81 mg PO DAILY 09/17/23 09/17/23 Unknown History release cholecalciferol (vitamin D3) 25 25 mcg PO DAILY 09/17/23 09/17/23 Unknown History mcg (1,000 unit) tablet diltiazem HCl 240 mg 240 mg PO DAILY 09/17/23 09/17/23 Unknown History tablet,extended release 24 hr (Cardizem LA) insulin glargine 100 unit/mL 35 unit subcut DAILY 09/17/23 09/17/23 Unknown History subcutaneous solution lisinopril 5 mg tablet 5 mg PO DAILY 09/17/23 09/17/23 Unknown History metformin 500 mg tablet 500 mg PO DAILY 09/17/23 09/17/23 Unknown History Physical Exam 2 Vital Signs: Vital Signs: Last Vital Signs Temp 98.5 F 09/18/23 06:05 Pulse 70 09/18/23 10:04 Resp 20 09/18/23 10:04 BP 143/50 H 09/18/23 10:04 Pulse Ox 94 09/18/23 10:04 O2 Del Method Room Air 09/18/23 10:04 BMI result Body Mass Index 24.1 Const: General: cooperative and no acute distress O rientation/consciousness: patient oriented x3 Resp: Effort & Inspection: normal respiratory effort and able to speak in complete sentences Cardio: Peripheral pulses: Peripheral pulses 2+ throughout Neuro: General: patient oriented x3 Results Labs 09/18/23 05:18 09/18/23 05:18 Labs: Abnormal lab results 09/17/23 09/17/23 09/18/23 Range/Units 20:36 21:46 05:18 RBC 3.63 L (4.60-5.80) X10*6/uL Hgb 11.9 L (14.0-18.0) g/dl Hct 34.5 L (42.0-52.0) % Immature Gran % (Auto) 0.5 H (0.0-0.4) % Neut % (Auto) 76.3 H (45-73) % Lymph % (Auto) 13.8 L (20-40) % Abs Immat Gran (auto) 0.05 H (0.00-0.03) X10*3/uL POC Glucose 185 H (60-115) mg/dL Random Glucose 143 H (60-115) mg/dL Urine Glucose (UA) 100 H (Negative) mg/dL Ur Leukocyte Esterase Trace H (Negative) 09/18/23 09/18/23 Range/Units 07:25 13:27 RBC (4.60-5.80) X10*6/uL Hgb (14.0-18.0) g/dl Hct (42.0-52.0) % Immature Gran % (Auto) (0.0-0.4) % Neut % (Auto) (45-73) % Lymph % (Auto) (20-40) % Abs Immat Gran (auto) (0.00-0.03) X10*3/uL POC Glucose 136 H 119 H (60-115) mg/dL Random Glucose (60-115) mg/dL Urine Glucose (UA) (Negative) mg/dL Ur Leukocyte Esterase (Negative) H & H 09/17/23 09/18/23 Range/Units 11:56 05:18 Hgb 11.8 L 11.9 L (14.0-18.0) g/dl Hct 34.3 L 34.5 L (42.0-52.0) % All other labs normal. Assessment and Plan Time Spent With Patient Time: Total time managing care of this patient today ____ minutes. Procedures Date of Service Date of Service: 09/18/23
--- NOTE | 2023-09-18 16:22 | PC.NURSE ---
update from Dr[place]: [place] [address]/19/23. pt will be NPO after midnight but can have diet order now.
[2023-09-18 18:02] VITALS: BP 141/66; PULSE 88; RESP 18; TEMP 36.6; O2SAT 92
[2023-09-18 18:03] LABS: Glucose, Whole Blood 126 mg/dL (60-115)
[2023-09-18 19:12] VITALS: BP 144/67; PULSE 96; RESP 18; TEMP 36.2; O2SAT 93
[2023-09-18 20:18] LABS: Glucose, Whole Blood 143 mg/dL (60-115)
[2023-09-18] MEDS: Sennosides/Docusate Sodium TABLET 2 TAB PO (20:40)
--- NOTE | 2023-09-18 20:50 | P.CONOP_ITS ---
History of Present Illness HPI Consult date: 09/18/23 Chief complaint: hip fx Narrative: Pateint sustained a mechanical fall at intermediate and presents to ED with right hip pain. Radiographs revealed a right femoral neck fracture. He is a poor historian but does endorse right hip pain. He is ambulatory with a walker at baseline and suffers from dementia. Review of Systems 2 Review of Systems: Yes all other systems are reviewed and are negative Neurologic: Reports confusion Psychiatric: Psychiatric: Reports confusion [facility] Past Medical History Medical History (Updated 09/17/23 @ 15:16 by SAMI Ragsdale) BPH (benign prostatic hyperplasia) History of UTI Hypertension Neuropathy Diabetes Social History Social History Household Members: Unknown / Unable to assess Housing: House Unable to assess alcohol history related to: Unknown Alcohol intake: never Patient Tobacco Use Status: Never used Tobacco Tobacco use type: Cigarette Cigarette Packs Per Day: 1 Cigarettes Per Day: 9 Years Smoked: 50 e-Cigarette/Vaping Use: Never Used Second Hand Smoke Exposure: Yes Advance Directives Date on File: 07/24/23 service: Yes Current occupational status: retired [employer] Allergies Allergy/AdvReac Type Severity Reaction Status Date / Time No Known Allergies Allergy Unverified 08/12/20 14:34 Active Medications: Current Medications Acetaminophen (Acetaminophen 325 Mg Tablet) 650 mg PO Q6H PRN PRN Reason: Pain, Mild (Pain Scale 1-3) Atorvastatin Calcium (Atorvastatin Calcium 40 Mg Tablet) 40 mg PO DAILY [facility] Last Admin: 09/18/23 10:07 Dose: 40 mg Dextrose (Dextrose 50 % 25 Gm/50 Ml Syringe) 25 gm IVPUSH Q15M PRN; Protocol PRN Reason: per Hypoglycemia Standing Ord. Diltiazem HCl (Diltiazem Hcl Cd 180 Mg Cap.Er.24h) 180 mg PO DAILY [facility]; Protocol Last Admin: 09/18/23 10:22 Dose: Not Given Docusate Sodium (Docusate Sodium 100 Mg Capsule) 100 mg PO DAILY PRN PRN Reason: Constipation Glucose (Glucose Gel 15 Gm Gel..Gram.) 15 gm PO Q15M PRN; Protocol PRN Reason: per Hypoglycemia Standing Ord. Heparin Sodium (Porcine) (Heparin Sodium,Porcine 5,000 Unit/Ml Vial) 5,000 unit SUBCUT Q12H [facility] Last Admin: 10/24/23 15:43 Dose: Not Given Insulin Glargine (Insulin Glargine,Hum.Rec.Anlog 100 Unit/Ml 10 Ml Vial) 25 unit SUBCUT DAILY [facility] Last Admin: 09/18/23 10:22 Dose: Not Given Insulin Human Lispro (Insulin Lispro 100 Unit/Ml 3 Ml Vial) 0 unit SUBCUT QIDACHS [facility]; Protocol Last Admin: 09/18/23 20:08 Dose: Not Given Latanoprost (Latanoprost 0.005 % Ophth Vannessa 2.5 Ml Drops) 1 drop EYE-BOTH BEDTIME [facility] Last Admin: 09/17/23 20:43 Dose: Not Given Morphine Sulfate (Morphine Sulfate 4 Mg/Ml Cartridge) 3 mg IVPUSH Q4H PRN; Protocol PRN Reason: Pain, Severe (Pain Scale 7-10) Ondansetron HCl (Ondansetron Hcl 4 Mg/2 Ml Vial) 4 mg IVPUSH Q8H PRN PRN Reason: Nausea and Vomiting Last Admin: 09/17/23 21:34 Dose: 4 mg Oxycodone HCl (Oxycodone Hcl Immed Release 5 Mg Tablet) 5 mg PO Q6H PRN PRN Reason: Pain, Moderate(Pain Scale 4-6) Last Admin: 09/18/23 10:11 Dose: 5 mg Pregabalin (Pregabalin 150 Mg Capsule) 150 mg PO BID [facility] Last Admin: 09/18/23 20:40 Dose: 150 mg Senna/Docusate Sodium (Sennosides/Docusate Sodium Tablet) 2 tab PO BEDTIME [facility] Last Admin: 09/18/23 20:40 Dose: 2 tab Sodium Chloride (0.9 % Sodium Chloride Flush 3 Ml Syringe) 3 ml IVFLUSH QSHIFT [facility] Last Admin: 09/18/23 15:20 Dose: Not Given Tamsulosin HCl (Tamsulosin Hcl 0.4 Mg Capsule) 0.4 mg PO DAILY [facility] Last Admin: 09/18/23 10:07 Dose: 0.4 mg Vitamin D (Cholecalciferol (Vitamin D3) 25 Mcg Tablet) 25 mcg PO DAILY [facility] Last Admin: 09/18/23 10:07 Dose: 25 mcg Home Medications Medication Instructions Recorded Confirmed Last Taken Type alfuzosin 10 mg tablet,extended 10 mg PO DAILY 02/23/23 09/17/23 Unknown History release 24 hr atorvastatin 40 mg tablet 40 mg PO DAILY 02/23/23 09/17/23 Unknown History insulin aspart U-100 100 unit/mL See Protocol subcut TIDAC 02/23/23 09/17/23 Unknown History subcutaneous solution (Novolog U-100 Insulin aspart) latanoprost 0.005 % eye drops 1 drp ophthalmic (eye) BEDTIME 02/23/23 09/17/23 Unknown History pregabalin 150 mg capsule 150 mg PO BID 02/23/23 09/17/23 Unknown History sennosides 8.6 mg-docusate sodium 2 tab-cap PO BEDTIME 02/23/23 09/17/23 Unknown History 50 mg tablet (Senna-S) aspirin 81 mg tablet,delayed 81 mg PO DAILY 09/17/23 09/17/23 Unknown History release cholecalciferol (vitamin D3) 25 25 mcg PO DAILY 09/17/23 09/17/23 Unknown History mcg (1,000 unit) tablet diltiazem HCl 240 mg 240 mg PO DAILY 09/17/23 09/17/23 Unknown History tablet,extended release 24 hr (Cardizem LA) insulin glargine 100 unit/mL 35 unit subcut DAILY 09/17/23 09/17/23 Unknown History subcutaneous solution lisinopril 5 mg tablet 5 mg PO DAILY 09/17/23 09/17/23 Unknown History metformin 500 mg tablet 500 mg PO DAILY 09/17/23 09/17/23 Unknown History Physical Exam 2 Vital Signs: Vital Signs: Last Vital Signs Temp 97.2 F 09/18/23 19:12 Pulse 96 09/18/23 19:12 Resp 18 09/18/23 19:12 BP 144/67 H 09/18/23 19:12 Pulse Ox 93 09/18/23 19:12 O2 Del Method Room Air 09/18/23 19:12 BMI result Body Mass Index 24.1 Const: General: cooperative, healthy appearing, no acute distress, well developed and confusion Orientation/consciousness: confusion HEENT: Head: Yes normal to inspection, Yes normocephalic and Yes atraumatic Mouth: moist mucous membranes Eyes: General: appearance normal, both eyes and all related structures EOM: EOMs intact bilaterally Chest: Other: no audible wheezing. Resp: Other: No audible wheezing Effort & Inspection: normal respiratory effort Cardio: Other: Radial pulse palpable with no rythmic abnormalities Back/Spine/Pelvis: Cervical Spine: normal cervical lordosis Skin: General skin exam: no rashes or lesions noted Neuro: General: no focal motor deficits and confusion Extrem: Other: sking intact over right hip DP+2 Moving toes and ankle Pain with log roll Psych: Appearance: grossly normal and well kempt Mental Status: mental status grossly normal Speech and movement: Normal speech and movement present Affect: normal affect Attitude: cooperative Results Labs 09/18/23 05:18 09/18/23 05:18 Labs: Abnormal lab results 09/17/23 09/18/23 09/18/23 Range/Units 21:46 05:18 07:25 RBC 3.63 L (4.60-5.80) X10*6/uL Hgb 11.9 L (14.0-18.0) g/dl Hct 34.5 L (42.0-52.0) % Immature Gran % (Auto) 0.5 H (0.0-0.4) % Neut % (Auto) 76.3 H (45-73) % Lymph % (Auto) 13.8 L (20-40) % Abs Immat Gran (auto) 0.05 H (0.00-0.03) X10*3/uL POC Glucose 136 H (60-115) mg/dL Random Glucose 143 H (60-115) mg/dL Urine Glucose (UA) 100 H (Negative) mg/dL Ur Leukocyte Esterase Trace H (Negative) 09/18/23 09/18/23 09/18/23 Range/Units 13:27 17:59 20:05 RBC (4.60-5.80) X10*6/uL Hgb (14.0-18.0) g/dl Hct (42.0-52.0) % Immature Gran % (Auto) (0.0-0.4) % Neut % (Auto) (45-73) % Lymph % (Auto) (20-40) % Abs Immat Gran (auto) (0.00-0.03) X10*3/uL POC Glucose 119 H 126 H 143 H (60-115) mg/dL Random Glucose (60-115) mg/dL Urine Glucose (UA) (Negative) mg/dL Ur Leukocyte Esterase (Negative) H & H 09/17/23 09/18/23 Range/Units 11:56 05:18 Hgb 11.8 L 11.9 L (14.0-18.0) g/dl Hct 34.3 L 34.5 L (42.0-52.0) % All other labs normal. Diagnostic results Hip x-ray: image reviewed (Displaced right femoral neck fracture) Assessment and Plan (1) Closed fracture of right hip: Qualifiers: Encounter type: initial encounter Qualified Code(s): S72.001A - Fracture of unspecified part of neck of right femur, initial encounter for closed fracture Status: Acute Plan I recommend right hip hemiarthroplasty. He has been cleared my medicine and will be NPO. He is demented but still enjoys walking and being active. I spoke with Ayesha, patient's HCP, and I discussed the risks benefits and alternatives including but not limited to the risk of pain, infection, stiffness, need for further surgery as well as potential medical complications such as blood clots, pulmonary embolism and cardiac complications. Juan Miguel is ambulatory with a walker at baseline and very active. His HCP and I agree that he would benefit from surgery and she would like to proceed forward. Time Spent With Patient Time: Total time managing care of this patient today _30___ minutes. Procedures Date of Service Date of Service: 09/18/23
[2023-09-18] MEDS: Latanoprost 0.005 % Ophth Sol 2.5 ML DROPS 1 DROP EYE-BOTH (22:05)
[2023-09-19] VITALS (7 sets, daily range): BP systolic 125–145; BP diastolic 49–67; PULSE 81–92; RESP 16–20; TEMP 36.3–37.1; O2SAT 94–100
--- NOTE | 2023-09-19 05:44 | PM.EVENT ---
Event Note Date of Service: 09/19/23 Event Note: Patient has a MOLST form stating that he is DNR/DNI. Will change code status from full code to DNR/DNI. Time Spent With Patient Time: Total time managing care of this patient today ____ minutes.
[2023-09-19 06:39] LABS: Glucose, Whole Blood 140 mg/dL (60-115)
--- NOTE | 2023-09-19 07:29 | HO.ANESPROP2 ---
[facility] Active Problems Active Problems: All Active Problems (Updated 09/17/23 @ 15:16 by SAMI Ragsdale) Closed fracture of right hip (Acute) Past Medical History Medical History BPH (benign prostatic hyperplasia) History of UTI Hypertension Neuropathy Diabetes Family History Family history of problems with anesthesia: No Surgical History History of Problems with Anesthesia: No Social History Social History Household Members: Unknown / Unable to assess Housing: House Unable to assess alcohol history related to: Unknown Alcohol intake: never Patient Tobacco Use Status: Never used Tobacco Tobacco use type: Cigarette Cigarette Packs Per Day: 1 Cigarettes Per Day: 9 Years Smoked: 50 e-Cigarette/Vaping Use: Never Used Second Hand Smoke Exposure: Yes Advance Directives Date on File: 07/24/23 service: Yes Current occupational status: retired Meds Allergies Allergy/AdvReac Type Severity Reaction Status Date / Time No Known Allergies Allergy Unverified 08/12/20 14:34 Active Medications: Current Medications Acetaminophen (Acetaminophen 325 Mg Tablet) 650 mg PO Q6H PRN PRN Reason: Pain, Mild (Pain Scale 1-3) Atorvastatin Calcium (Atorvastatin Calcium 40 Mg Tablet) 40 mg PO DAILY [facility] Last Admin: 09/18/23 10:07 Dose: 40 mg Dextrose (Dextrose 50 % 25 Gm/50 Ml Syringe) 25 gm IVPUSH Q15M PRN; Protocol PRN Reason: per Hypoglycemia Standing Ord. Diltiazem HCl (Diltiazem Hcl Cd 180 Mg Cap.Er.24h) 180 mg PO DAILY [facility]; Protocol Last Admin: 09/18/23 10:22 Dose: Not Given Docusate Sodium (Docusate Sodium 100 Mg Capsule) 100 mg PO DAILY PRN PRN Reason: Constipation Glucose (Glucose Gel 15 Gm Gel..Gram.) 15 gm PO Q15M PRN; Protocol PRN Reason: per Hypoglycemia Standing Ord. Heparin Sodium (Porcine) (Heparin Sodium,Porcine 5,000 Unit/Ml Vial) 5,000 unit SUBCUT Q12H [facility] Last Admin: 09/19/23 04:37 Dose: Not Given Insulin Glargine (Insulin Glargine,Hum.Rec.Anlog 100 Unit/Ml 10 Ml Vial) 25 unit SUBCUT DAILY [facility] Last Admin: 09/18/23 10:22 Dose: Not Given Insulin Human Lispro (Insulin Lispro 100 Unit/Ml 3 Ml Vial) 0 unit SUBCUT QIDACHS [facility]; Protocol Last Admin: 09/18/23 20:08 Dose: Not Given Latanoprost (Latanoprost 0.005 % Ophth Vannessa 2.5 Ml Drops) 1 drop EYE-BOTH BEDTIME [facility] Last Admin: 09/18/23 22:05 Dose: 1 drop Morphine Sulfate (Morphine Sulfate 4 Mg/Ml Cartridge) 3 mg IVPUSH Q4H PRN; Protocol PRN Reason: Pain, Severe (Pain Scale 7-10) Ondansetron HCl (Ondansetron Hcl 4 Mg/2 Ml Vial) 4 mg IVPUSH Q8H PRN PRN Reason: Nausea and Vomiting Last Admin: 09/17/23 21:34 Dose: 4 mg Oxycodone HCl (Oxycodone Hcl Immed Release 5 Mg Tablet) 5 mg PO Q6H PRN PRN Reason: Pain, Moderate(Pain Scale 4-6) Last Admin: 09/18/23 20:52 Dose: 5 mg Pregabalin (Pregabalin 150 Mg Capsule) 150 mg PO BID [facility] Last Admin: 09/18/23 20:40 Dose: 150 mg Senna/Docusate Sodium (Sennosides/Docusate Sodium Tablet) 2 tab PO BEDTIME [facility] Last Admin: 09/18/23 20:40 Dose: 2 tab Sodium Chloride (0.9 % Sodium Chloride Flush 3 Ml Syringe) 3 ml IVFLUSH QSHIFT [facility] Last Admin: 09/18/23 20:54 Dose: 3 ml Tamsulosin HCl (Tamsulosin Hcl 0.4 Mg Capsule) 0.4 mg PO DAILY [facility] Last Admin: 09/18/23 10:07 Dose: 0.4 mg Vitamin D (Cholecalciferol (Vitamin D3) 25 Mcg Tablet) 25 mcg PO DAILY [facility] Last Admin: 09/18/23 10:07 Dose: 25 mcg Home Medications Medication Instructions Recorded Confirmed Last Taken Type alfuzosin 10 mg tablet,extended 10 mg PO DAILY 02/23/23 09/17/23 Unknown History release 24 hr atorvastatin 40 mg tablet 40 mg PO DAILY 02/23/23 09/17/23 Unknown History insulin aspart U-100 100 unit/mL See Protocol subcut TIDAC 02/23/23 09/17/23 Unknown History subcutaneous solution (Novolog U-100 Insulin aspart) latanoprost 0.005 % eye drops 1 drp ophthalmic (eye) BEDTIME 02/23/23 09/17/23 Unknown History pregabalin 150 mg capsule 150 mg PO BID 02/23/23 09/17/23 Unknown History sennosides 8.6 mg-docusate sodium 2 tab-cap PO BEDTIME 02/23/23 09/17/23 Unknown History 50 mg tablet (Senna-S) aspirin 81 mg tablet,delayed 81 mg PO DAILY 09/17/23 09/17/23 Unknown History release cholecalciferol (vitamin D3) 25 25 mcg PO DAILY 09/17/23 09/17/23 Unknown History mcg (1,000 unit) tablet diltiazem HCl 240 mg 240 mg PO DAILY 09/17/23 09/17/23 Unknown History tablet,extended release 24 hr (Cardizem LA) insulin glargine 100 unit/mL 35 unit subcut DAILY 09/17/23 09/17/23 Unknown History subcutaneous solution lisinopril 5 mg tablet 5 mg PO DAILY 09/17/23 09/17/23 Unknown History metformin 500 mg tablet 500 mg PO DAILY 09/17/23 09/17/23 Unknown History Exam Exam Date and Time: September 19, 2023 0729 Height,Weight and Vital Signs: Height 5 ft 5 in Weight 65.771 kg Last Vital Signs Temp 98.8 F 09/19/23 06:38 Pulse 92 09/19/23 06:38 Resp 18 09/19/23 06:38 BP 141/61 H 09/19/23 06:38 Pulse Ox 94 09/19/23 06:38 O2 Del Method Room Air 09/19/23 06:38 Pertinent Lab Results Pertinent Lab Results: Laboratory Tests 09/17/23 09/17/23 09/17/23 11:56 18:40 20:36 WBC 15.8 H RBC 3.58 L Hgb 11.8 L Hct 34.3 L MCV 95.8 MCH 33.0 MCHC 34.4 RDW 13.5 Plt Count 239 MPV 10.5 Immature Gran % (Auto) 0.8 H Neut % (Auto) 84.1 H Lymph % (Auto) 8.4 L [place] % (Auto) 6.0 Eos % (Auto) 0.1 Baso % (Auto) 0.6 Lymph # (Auto) 1.3 [place] # (Auto) 0.9 Eos # (Auto) 0.0 Baso # (Auto) 0.1 Abs Immat Gran (auto) 0.12 H Absolute Neuts (auto) 13.3 H Absolute Nucleated RBC 0.000 Nucleated RBC % (auto) 0.0 Sodium 139 Potassium 4.7 D Chloride 107 Carbon Dioxide 24 Anion Gap 13 BUN 16 Creatinine 0.88 Estim Creat Clear Calc 62.1 Estimated GFR > 60 POC Glucose 113 185 H Random Glucose 113 Calcium 9.0 Magnesium 1.9 Total Bilirubin 0.5 Direct Bilirubin 0.1 AST 27 ALT 25 Alkaline Phosphatase 96 Total Protein 7.0 Albumin 3.5 Urine Color Urine Appearance Urine pH Ur Specific [place] Urine Protein Urine Glucose (UA) Urine Ketones Urine Blood Urine Nitrite Ur Leukocyte Esterase Urine RBC Urine WBC Ur Squamous Epith Cells Urine Bacteria Hyaline Casts 09/17/23 09/18/23 09/18/23 21:46 05:18 07:25 WBC 10.8 RBC 3.63 L Hgb 11.9 L Hct 34.5 L MCV 95.0 MCH 32.8 MCHC 34.5 RDW 13.2 Plt Count 199 MPV 9.8 Immature Gran % (Auto) 0.5 H Neut % (Auto) 76.3 H Lymph % (Auto) 13.8 L [place] % (Auto) 8.5 Eos % (Auto) 0.2 Baso % (Auto) 0.7 Lymph # (Auto) 1.5 [place] # (Auto) 0.9 Eos # (Auto) 0.0 Baso # (Auto) 0.1 Abs Immat Gran (auto) 0.05 H Absolute Neuts (auto) 8.2 Absolute Nucleated RBC 0.000 Nucleated RBC % (auto) 0.0 Sodium 140 Potassium 4.3 Chloride 105 Carbon Dioxide 23 Anion Gap 16 BUN 15 Creatinine 0.89 Estim Creat Clear Calc 61.4 Estimated GFR > 60 POC Glucose 136 H Random Glucose 143 H Calcium 9.2 Magnesium Total Bilirubin Direct Bilirubin AST ALT Alkaline Phosphatase Total Protein Albumin Urine Color Yellow Urine Appearance Clear Urine pH 6.0 Ur Specific [place] 1.020 Urine Protein Negative Urine Glucose (UA) 100 H Urine Ketones Negative Urine Blood Negative Urine Nitrite Negative Ur Leukocyte Esterase Trace H Urine RBC 0-2 Urine WBC 0-5 Ur Squamous Epith Cells 0-2 Urine Bacteria None Seen Hyaline Casts 0-2 09/18/23 09/18/23 09/18/23 13:27 17:59 20:05 WBC RBC Hgb Hct MCV MCH MCHC RDW Plt Count MPV Immature Gran % (Auto) Neut % (Auto) Lymph % (Auto) [place] % (Auto) Eos % (Auto) Baso % (Auto) Lymph # (Auto) [place] # (Auto) Eos # (Auto) Baso # (Auto) Abs Immat Gran (auto) Absolute Neuts (auto) Absolute Nucleated RBC Nucleated RBC % (auto) Sodium Potassium Chloride Carbon Dioxide Anion Gap BUN Creatinine Estim Creat Clear Calc Estimated GFR POC Glucose 119 H 126 H 143 H Random Glucose Calcium Magnesium Total Bilirubin Direct Bilirubin AST ALT Alkaline Phosphatase Total Protein Albumin Urine Color Urine Appearance Urine pH Ur Specific [place] Urine Protein Urine Glucose (UA) Urine Ketones Urine Blood Urine Nitrite Ur Leukocyte Esterase Urine RBC Urine WBC Ur Squamous Epith Cells Urine Bacteria Hyaline Casts 09/19/23 06:34 WBC RBC Hgb Hct MCV MCH MCHC RDW Plt Count MPV Immature Gran % (Auto) Neut % (Auto) Lymph % (Auto) [place] % (Auto) Eos % (Auto) Baso % (Auto) Lymph # (Auto) [place] # (Auto) Eos # (Auto) Baso # (Auto) Abs Immat Gran (auto) Absolute Neuts (auto) Absolute Nucleated RBC Nucleated RBC % (auto) Sodium Potassium Chloride Carbon Dioxide Anion Gap BUN Creatinine Estim Creat Clear Calc Estimated GFR POC Glucose 140 H Random Glucose Calcium Magnesium Total Bilirubin Direct Bilirubin AST ALT Alkaline Phosphatase Total Protein Albumin Urine Color Urine Appearance Urine pH Ur Specific [place] Urine Protein Urine Glucose (UA) Urine Ketones Urine Blood Urine Nitrite Ur Leukocyte Esterase Urine RBC Urine WBC Ur Squamous Epith Cells Urine Bacteria Hyaline Casts Airway Mallampati Class: II TM Dist: >3cm Neck ROM: Limited Heart: rrr Lungs: cta Assessment and Plan Assessment Anesthesia Assessment: Anesthesia Plan Discussed and Chart Reviewed Final Anesthetic Review Family History of Problems with Anesthesia: No History of Problems with Anesthesia: No NPO: Yes ASA Class: III Final Preanesthetic Review: No Changes in Pt Med Stat, Meds/Allgs Chart Reviewed, Consent Obtained/Reviewed and Anes Risks/Benef Reviewed Patient Risk: Intermediate Procedure Risk: Intermediate Anesthetic Plan Anesthetic Plan: GA and Agree w/ Assess. and Plan Disposition: Standard PACU
--- NOTE | 2023-09-19 07:35 | MHC.SHP ---
Pre-Procedural Eval Section A Date of Service: 09/19/23 The patient is an INPATIENT: No Changes since office visit: No Cold of Flu in the past 2 weeks, No New Medical Problems, No Changes in Medication and No Patient answered all questions The History & Physical has been completed within 30 days and I have reviewed it.: Yes Section B Chief Complaint: hip fx Allergies: Allergies Allergy/AdvReac Type Severity Reaction Status Date / Time No Known Allergies Allergy Unverified 08/12/20 14:34 Plan I have reviewed the history and physical and performed a pertinent physical examination on my patient. No changes have occurred unless specified. Time Spent With Patient Time: Total time managing care of this patient today ____ minutes.
--- NOTE | 2023-09-19 09:20 | PM.OP ---
Brief Operative Note Date of Service: 09/19/23 Pre-op diagnosis: Right femoral neck fracture Post-op diagnosis: same Procedure: Right hip Ulices Implants: Bree Accolade2 #6 127 deg with +03/21/48 bipolar Surgeon: Matt Kay MD Anesthesia: GETA and local Was an Resource Recovery Specialist used for this Procedure?: Yes Resource Recovery Specialist: Sapphire Cuevas Estimated blood loss (mL): 250 IV fluids (mL): 800 Pathology: other Condition: stable Disposition: PACU
[2023-09-19] MEDS: oxyCODONE HCl Immed Release 5 MG TABLET PO ×3 (11:05→20:42)
[2023-09-19 12:21] LABS: Glucose, Whole Blood 169 mg/dL (60-115)
--- NOTE | 2023-09-19 12:59 | MHC.CM.PN ---
Pt not ready for DC today. Plan is to return to [facility] for STR. He is a [facility] care resident there, and is on a bed hold. Updates sent to [facility]. [facility] will follow and assist with DC plan.
[2023-09-19] MEDS: 0.9 % Sodium Chloride Flush 3 ML SYRINGE IVFLUSH ×2 (15:06→20:42)
[2023-09-19] MEDS: Heparin Sodium,Porcine 5,000 UNIT/ML VIAL 5000 UNIT SUBCUT (15:06)
--- NOTE | 2023-09-19 16:21 | P.PNIM_ITS ---
Subjective Subjective Date of Service: 09/19/23 Interval History: Being followed for right hip fracture, patient with underlying unspecified dementia denying pain, say no to all review of system, but moans with right leg movement or examination, underwent right hip surgery this morning, remains hemodynamically stable Review of Systems Unable to obtain due to underlying dementia. Physical Exam 2 Vital Signs: Vital Signs: Last Vital Signs Temp 97.7 F 09/19/23 10:05 Pulse 90 09/19/23 10:05 Resp 16 09/19/23 10:05 BP 136/58 L 09/19/23 10:05 Pulse Ox 96 09/19/23 10:05 O2 Del Method Room Air 09/19/23 10:05 O2 Flow Rate 6 09/19/23 09:50 BMI result Body Mass Index 24.1 Const: Other: General awake alert, resting in bed, in no acute distress. Neck no JVD. CVS regular rate rhythm, Respiratory lungs clear to auscultation, no respiratory distress, no wheeze, no rhonchi. Gastrointestinal abdomen soft, obese, non tender, bowel sounds audible,no guarding , no rigidity. Extremities no edema. Right lower extremity no swelling pain with movement Neuro moving all 4 extremity ,speech clear. Skin no rash Objective Data Active Medications Acetaminophen (Acetaminophen 325 Mg Tablet) 650 mg PO Q6H PRN PRN Reason: Pain, Mild (Pain Scale 1-3) Atorvastatin Calcium (Atorvastatin Calcium 40 Mg Tablet) 40 mg PO DAILY [facility] Last Admin: 09/19/23 10:41 Dose: Not Given Documented By: TATUM Non-Admin Reason: Off Unit: Surgery Dextrose (Dextrose 50 % 25 Gm/50 Ml Syringe) 25 gm IVPUSH Q15M PRN; Protocol PRN Reason: per Hypoglycemia Standing Ord. Diltiazem HCl (Diltiazem Hcl Cd 240 Mg Cap.Er.Deg) 240 mg PO DAILY [facility]; Protocol Last Admin: 09/19/23 10:41 Dose: Not Given Documented By: TATUM Non-Admin Reason: Off Unit: Surgery Docusate Sodium (Docusate Sodium 100 Mg Capsule) 100 mg PO DAILY PRN PRN Reason: Constipation Enoxaparin Sodium (Enoxaparin Sodium 40 Mg/0.4 Ml Syringe) 40 mg SUBCUT Q24H [facility] Fentanyl (Fentanyl Citrate/Pf 100 Mcg/2 Ml Vial) 25 mcg IVPUSH Q5M PRN; Protocol PRN Reason: Pain, Moderate(Pain Scale 4-6) Glucose (Glucose Gel 15 Gm Gel..Gram.) 15 gm PO Q15M PRN; Protocol PRN Reason: per Hypoglycemia Standing Ord. Heparin Sodium (Porcine) (Heparin Sodium,Porcine 5,000 Unit/Ml Vial) 5,000 unit SUBCUT Q12H [facility] Last Admin: 09/19/23 15:06 Dose: 5,000 unit Documented By: TATUM Hydromorphone HCl (Hydromorphone Hcl 0.5 Mg/0.5 Ml Syringe) 0.25 mg IVPUSH Q5M PRN; Protocol PRN Reason: Pain, Severe (Pain Scale 7-10) Hydromorphone HCl (Hydromorphone Hcl 0.5 Mg/0.5 Ml Syringe) 0.25 mg IVPUSH Q5M PRN; Protocol PRN Reason: Pain, Severe (Pain Scale 7-10) Insulin Glargine (Insulin Glargine,Hum.Rec.Anlog 100 Unit/Ml 10 Ml Vial) 25 unit SUBCUT DAILY [facility] Last Admin: 09/19/23 10:42 Dose: Not Given Documented By: TATUM Non-Admin Reason: Off Unit: Surgery Insulin Human Lispro (Insulin Lispro 100 Unit/Ml 3 Ml Vial) 0 unit SUBCUT QIDACHS [facility]; Protocol Last Admin: 09/19/23 12:20 Dose: Not Given Documented By: TATUM Non-Admin Reason: refused lunch Latanoprost (Latanoprost 0.005 % Ophth Vannessa 2.5 Ml Drops) 1 drop EYE-BOTH BEDTIME [facility] Last Admin: 09/18/23 22:05 Dose: 1 drop Documented By: YAJAIRA Morphine Sulfate (Morphine Sulfate 4 Mg/Ml Cartridge) 3 mg IVPUSH Q4H PRN; Protocol PRN Reason: Pain, Severe (Pain Scale 7-10) Ondansetron HCl (Ondansetron Hcl 4 Mg/2 Ml Vial) 4 mg IVPUSH Q8H PRN PRN Reason: Nausea and Vomiting Last Admin: 09/17/23 21:34 Dose: 4 mg Documented By: UNIQUE Ondansetron HCl (Ondansetron Hcl 4 Mg/2 Ml Vial) 4 mg IVPUSH ONCE PRN PRN Reason: Nausea and Vomiting Oxycodone HCl (Oxycodone Hcl Immed Release 5 Mg Tablet) 5 mg PO Q6H PRN PRN Reason: Pain, Moderate(Pain Scale 4-6) Last Admin: 09/19/23 11:05 Dose: 5 mg Documented By: TATUM Pregabalin (Pregabalin 150 Mg Capsule) 150 mg PO BID [facility] Last Admin: 09/19/23 10:42 Dose: Not Given Documented By: TATUM Non-Admin Reason: Off Unit: Surgery Senna/Docusate Sodium (Sennosides/Docusate Sodium Tablet) 2 tab PO BEDTIME [facility] Last Admin: 09/18/23 20:40 Dose: 2 tab Documented By: YAJAIRA Sodium Chloride (0.9 % Sodium Chloride Flush 3 Ml Syringe) 3 ml IVFLUSH QSHIFT [facility] Last Admin: 09/19/23 15:06 Dose: 3 ml Documented By: TATUM Tamsulosin HCl (Tamsulosin Hcl 0.4 Mg Capsule) 0.4 mg PO DAILY [facility] Last Admin: 09/19/23 10:42 Dose: Not Given Documented By: TATUM Non-Admin Reason: Off Unit: Surgery Vitamin D (Cholecalciferol (Vitamin D3) 25 Mcg Tablet) 25 mcg PO DAILY [facility] Last Admin: 09/19/23 10:41 Dose: Not Given Documented By: TATUM Non-Aristeo Reason: Off Unit: Surgery Labs 09/18/23 05:18 09/18/23 05:18 Labs: Laboratory Results - last 24 hr 09/18/23 09/18/23 09/19/23 17:59 20:05 06:34 POC Glucose 126 H 143 H 140 H Blood Type Antibody Screen 09/19/23 09/19/23 07:48 12:17 POC Glucose 169 H Blood Type B Positive Antibody Screen NEGATIVE Assessment and Plan (1) Closed fracture of right hip: Status: Acute Plan 77 year old male with history of htn, insulin dependent type 2 diabetes, unspecified dementia, diabetic polyneuropathy, hx uti admitted for R mildly displaced hip fracture. # right mildly displaced femoral neck fracture Status post right hip hemiarthroplasty pod #0 Post surgery Not complaining of pain resting comfortably, but moans with movement -will order scheduled pain management and continue with prn IV morphine and oxycodone #Acute leukocytosis -WBC normalize was likely reactive 2/2 fall with hip fracture # insulin-dependent type 2 diabetes -stable blood sugars , follow POC glucose, diabetic diet, basal insulin, continue Humalog on sliding scale # hypertension -stable blood pressures, hold lisinopril , Continue low-dose diltiazem # diabetic polyneuropathy -continue Lyrica # urinary incontinence/BPH -continue oxybutynin, alfuzosin #HLD-continue statin DVT prophylaxis-heparin DNR/DNI per [facility] form Patient requires continued inpatient stay for management of acute displaced femoral neck fracture requiring expert consultation and IV pain medications/PT eval and Time Spent With Patient Time: Total time managing care of this patient today ____ minutes. Quality Stroke Does the patient have a stroke diagnosis?: No VTE Prior VTE?: No VTE Risk Level:: Medical - moderate - high VTE Device Contraindication: Treatment Not Indicated VTE Drug Contraindication: N/A - Med Ordered
[2023-09-19] MEDS: Insulin Lispro 100 UNIT/ML 3 ML VIAL SUBCUT ×2 (16:51→21:33)
[2023-09-19] MEDS: Celecoxib 200 MG CAPSULE PO (16:51)
[2023-09-19 16:54] LABS: Glucose, Whole Blood 184 mg/dL (60-115)
[2023-09-19] MEDS: Acetaminophen 325 MG TABLET 650 MG PO (20:40)
[2023-09-19] MEDS: Pregabalin 150 MG CAPSULE PO (20:42)
[2023-09-19] MEDS: Sennosides/Docusate Sodium TABLET 2 TAB PO (20:42)
[2023-09-19 21:11] LABS: Glucose, Whole Blood 194 mg/dL (60-115)
[2023-09-19 21:19] LABS: Glucose, Whole Blood 232 mg/dL (60-115)
[2023-09-19] MEDS: Latanoprost 0.005 % Ophth Sol 2.5 ML DROPS 1 DROP EYE-BOTH (21:33)
[2023-09-20] MEDS: Heparin Sodium,Porcine 5,000 UNIT/ML VIAL 5000 UNIT SUBCUT ×2 (03:00→15:00)
[2023-09-20 03:32] VITALS: BP 129/60; PULSE 96; RESP 16; TEMP 36.5; O2SAT 94
[2023-09-20 07:50] LABS: Glucose, Whole Blood 158 mg/dL (60-115)
[2023-09-20 07:51] VITALS: BP 136/62; PULSE 95; RESP 18; TEMP 36.8; O2SAT 95
[2023-09-20] MEDS: Enoxaparin Sodium 40 MG/0.4 ML SYRINGE SUBCUT (08:03)
[2023-09-20] MEDS: Acetaminophen 325 MG TABLET 650 MG PO ×3 (08:05→20:59)
[2023-09-20] MEDS: Atorvastatin Calcium 40 MG TABLET PO (08:05)
[2023-09-20] MEDS: dilTIAZem HCL CD 240 MG CAP.ER.DEG PO (08:05)
[2023-09-20] MEDS: 0.9 % Sodium Chloride Flush 3 ML SYRINGE IVFLUSH ×3 (08:05→20:59)
[2023-09-20] MEDS: Cholecalciferol (Vitamin D3) 25 MCG TABLET PO (08:06)
[2023-09-20] MEDS: Celecoxib 200 MG CAPSULE PO (08:06)
[2023-09-20] MEDS: Pregabalin 150 MG CAPSULE PO ×2 (08:06→20:58)
[2023-09-20] MEDS: Tamsulosin HCL 0.4 MG CAPSULE PO (08:06)
[2023-09-20 08:38] LABS: MANUAL DIFF FLAG NO
[2023-09-20 08:41] LABS: Basophils Absolute Auto 0.1 X10*3/uL (0.0-0.2); Basophils Percent Auto 0.4 % (0-2); Eosinophils Percent Auto 0.1 % (0-4); Hematocrit 28.4 % (42.0-52.0); Hemoglobin 10.1 g/dl (14.0-18.0); Imm Gran Abs Auto 0.09 X10*3/uL (0.00-0.03); Imm Gran Pct Auto 0.7 % (0.0-0.4); Lymphocytes Absolute Auto 1.4 X10*3/uL (1.2-4.9); Lymphocytes Percent Auto 10.1 % (20-40); Mean Corpuscular HGB Conc 35.6 g/dl (31.0-36.0); Mean Corpuscular Hemoglobin 33.4 pg (27.0-33.0); Mean Platelet Volume 10.8 fL (9.4-12.4); Monocytes Absolute Auto 1.4 X10*3/uL (0.1-1.2); Monocytes Percent Auto 10.3 % (2-11); Neutrophils Absolute Auto 10.6 x10*3/uL (2.0-8.3); Neutrophils Percent Auto 78.4 % (45-73); Platelet Count 167 X10*3/uL (160-400); Red Blood Count 3.02 X10*6/uL (4.60-5.80); Red Cell Distribution Width 13.3 % (11.0-16.0); White Blood Count 13.6 X10*3/uL (4.8-10.8)
[2023-09-20] MEDS: Insulin Glargine,Hum.rec.anlog 100 UNIT/ML 10 ML VIAL 25 UNIT SUBCUT (08:41)
[2023-09-20] MEDS: Insulin Lispro 100 UNIT/ML 3 ML VIAL SUBCUT ×4 (08:41→20:58)
--- NOTE | 2023-09-20 08:59 | PM.PNORT ---
Subjective Subjective Date of Service: 09/20/23 Interval history: POD1 s/p rt hip jeyson. Patient is in bed eating breakfast. No overnight events. Pain is managed. No additional complaints. Physical Exam Vital Signs: Vital Signs: Last Vital Signs Temp 98.3 F 09/20/23 07:51 Pulse 95 09/20/23 07:51 Resp 18 09/20/23 07:51 BP 136/62 09/20/23 07:51 Pulse Ox 95 09/20/23 07:51 O2 Del Method Room Air 09/20/23 07:51 O2 Flow Rate 6 09/19/23 09:50 BMI result Body Mass Index 24.1 Const: General: cooperative, healthy appearing and no acute distress Resp: Effort & Inspection: normal respiratory effort and able to speak in complete sentences Cardio: Rate: regular rate Peripheral pulses: Peripheral pulses 2+ throughout GI: Palpation (GI): Soft to palpation Skin: Lesions: no lesions Rashes: no rashes Extrem: Other: right hip dressing is c/d/i. Able to dorsi/plantar flex. Calf is supple and nontender. Sensation intact. Pedal pulse intact. Procedures Date of Service Date of Service: 09/20/23 Progress Note: A&P Assessment and plan (1) Closed fracture of right hip: Status: Acute Assessment and Plan: Continue pain mgmnt Begin Lovenox for dvt ppx begin PT for right hip jeyson Dispo planning-Pending PT eval, pain mgmnt Time Spent With Patient Time: Total time managing care of this patient today ____ minutes. Quality Stroke Does the patient have a stroke diagnosis?: No VTE Prior VTE?: No VTE Risk Level:: Medical - moderate - high VTE Device Contraindication: Treatment Not Indicated VTE Drug Contraindication: N/A - Med Ordered
[2023-09-20 09:08] LABS: Anion Gap 15 (12-20); Blood Urea Nitrogen 22 mg/dL (9-16); Calcium 8.5 mg/dL (8.4-10.2); Carbon Dioxide 24 mmol/L (22-29); Chloride 103 mmol/L (96-108); Creatinine Clr Calc Pharmacy 62.8; Estimated Glomerular Filt Rate > 60; Glucose Random 182 mg/dL (60-115); Potassium 4.5 mmol/L (3.3-5.1); Sodium 137 mmol/L (135-145)
[2023-09-20 11:28] LABS: Glucose, Whole Blood 281 mg/dL (60-115)
[2023-09-20 11:45] VITALS: BP 99/50; PULSE 86; RESP 18; TEMP 36.9; O2SAT 96
--- NOTE | 2023-09-20 12:20 | MHC.CM.PN ---
PER MD ROUNDS, PT WILL LIKELY BE READY TO DC TOMORROW UPDATES, INCLUDING PT EVAL, SENT TO [facility], ALONG WITH NOTICE OF EXPECTED DC
[2023-09-20 15:00] VITALS: BP 118/59; PULSE 80; RESP 18; TEMP 36.7; O2SAT 97
--- NOTE | 2023-09-20 16:10 | P.PNIM_ITS ---
Subjective Subjective Date of Service: 09/20/23 Interval History: seen and examined this morning follow up for right hip fracture POD #1 s/p repair no overnight events no specific complaints this morning pain controlled Review of Systems Review of Systems: Yes all other systems are reviewed and are negative Constitutional Constitutional: Denies chills and Denies fever(s) Cardiovascular Cardiovascular: Denies chest pain, Denies palpitations and Denies dyspnea Respiratory Respiratory: Denies cough and Denies dyspnea Neurologic Neurologic: Reports confusion Psychiatric Psychiatric: Reports confusion Endocrine Endocrine: Denies palpitations Physical Exam 2 Vital Signs: Vital Signs: Last Vital Signs Temp 98.1 F 09/20/23 15:00 Pulse 80 09/20/23 15:00 Resp 18 09/20/23 15:00 BP 118/59 L 09/20/23 15:00 Pulse Ox 97 09/20/23 15:00 O2 Del Method Room Air 09/20/23 15:00 O2 Flow Rate 6 09/19/23 09:50 BMI result Body Mass Index 24.1 Const: Other: observed sitting up in chair General: cooperative, comfortable, alert, awake and confusion N utritional Appearance: average body habitus Orientation/consciousness: c onfusion Resp: Effort & Inspection: normal respiratory effort, able to speak in complete sentences, no respiratory distress and no use of accessory muscles Cardio: Rate: regular rate GI: Inspection: No distended Palpation (GI): Soft to palpation and nontender Neuro: Other: grossly nonfocal General: confusion Extrem: General: Yes no pedal edema Objective Data Active Medications Acetaminophen (Acetaminophen 325 Mg Tablet) 650 mg PO Q6H PRN PRN Reason: Pain, Mild (Pain Scale 1-3) Acetaminophen (Acetaminophen 325 Mg Tablet) 650 mg PO TID [facility] Last Admin: 09/20/23 14:59 Dose: 650 mg Documented By: ELLE Atorvastatin Calcium (Atorvastatin Calcium 40 Mg Tablet) 40 mg PO DAILY [facility] Last Admin: 09/20/23 08:05 Dose: 40 mg Documented By: ELLE Celecoxib (Celecoxib 200 Mg Capsule) 200 mg PO DAILY [facility] Last Admin: 09/20/23 08:06 Dose: 200 mg Documented By: ELLE Dextrose (Dextrose 50 % 25 Gm/50 Ml Syringe) 25 gm IVPUSH Q15M PRN; Protocol PRN Reason: per Hypoglycemia Standing Ord. Diltiazem HCl (Diltiazem Hcl Cd 240 Mg Cap.Er.Deg) 240 mg PO DAILY [facility]; Protocol Last Admin: 09/20/23 08:05 Dose: 240 mg Documented By: ELLE Docusate Sodium (Docusate Sodium 100 Mg Capsule) 100 mg PO DAILY PRN PRN Reason: Constipation Enoxaparin Sodium (Enoxaparin Sodium 40 Mg/0.4 Ml Syringe) 40 mg SUBCUT Q24H [facility] Last Admin: 09/20/23 08:03 Dose: 40 mg Documented By: ELLE Fentanyl (Fentanyl Citrate/Pf 100 Mcg/2 Ml Vial) 25 mcg IVPUSH Q5M PRN; Protocol PRN Reason: Pain, Moderate(Pain Scale 4-6) Glucose (Glucose Gel 15 Gm Gel..Gram.) 15 gm PO Q15M PRN; Protocol PRN Reason: per Hypoglycemia Standing Ord. Heparin Sodium (Porcine) (Heparin Sodium,Porcine 5,000 Unit/Ml Vial) 5,000 unit SUBCUT Q12H [facility] Last Admin: 09/20/23 15:00 Dose: 5,000 unit Documented By: ELLE Hydromorphone HCl (Hydromorphone Hcl 0.5 Mg/0.5 Ml Syringe) 0.25 mg IVPUSH Q5M PRN; Protocol PRN Reason: Pain, Severe (Pain Scale 7-10) Hydromorphone HCl (Hydromorphone Hcl 0.5 Mg/0.5 Ml Syringe) 0.25 mg IVPUSH Q5M PRN; Protocol PRN Reason: Pain, Severe (Pain Scale 7-10) Insulin Glargine (Insulin Glargine,Hum.Rec.Anlog 100 Unit/Ml 10 Ml Vial) 25 unit SUBCUT DAILY [facility] Last Admin: 09/20/23 08:41 Dose: 25 unit Documented By: ELLE Insulin Human Lispro (Insulin Lispro 100 Unit/Ml 3 Ml Vial) 0 unit SUBCUT QIDACHS [facility]; Protocol Last Admin: 09/20/23 12:24 Dose: 6 unit Documented By: ELLE Latanoprost (Latanoprost 0.005 % Ophth Vannessa 2.5 Ml Drops) 1 drop EYE-BOTH BEDTIME [facility] Last Admin: 09/19/23 21:33 Dose: 1 drop Documented By: HO.OZORALB Morphine Sulfate (Morphine Sulfate 4 Mg/Ml Cartridge) 3 mg IVPUSH Q4H PRN; Protocol PRN Reason: Pain, Severe (Pain Scale 7-10) Ondansetron HCl (Ondansetron Hcl 4 Mg/2 Ml Vial) 4 mg IVPUSH Q8H PRN PRN Reason: Nausea and Vomiting Last Admin: 09/17/23 21:34 Dose: 4 mg Documented By: UNIQUE Ondansetron HCl (Ondansetron Hcl 4 Mg/2 Ml Vial) 4 mg IVPUSH ONCE PRN PRN Reason: Nausea and Vomiting Oxycodone HCl (Oxycodone Hcl Immed Release 5 Mg Tablet) 5 mg PO Q6H PRN PRN Reason: Pain, Moderate(Pain Scale 4-6) Last Admin: 09/19/23 16:50 Dose: 5 mg Documented By: TATUM Oxycodone HCl (Oxycodone Hcl Immed Release 5 Mg Tablet) 5 mg PO BEDTIME [facility] Last Admin: 09/19/23 20:42 Dose: 5 mg Documented By: RICA Pregabalin (Pregabalin 150 Mg Capsule) 150 mg PO BID [facility] Last Admin: 09/20/23 08:06 Dose: 150 mg Documented By: ELLE Senna/Docusate Sodium (Sennosides/Docusate Sodium Tablet) 2 tab PO BEDTIME [facility] Last Admin: 09/19/23 20:42 Dose: 2 tab Documented By: RICA Sodium Chloride (0.9 % Sodium Chloride Flush 3 Ml Syringe) 3 ml IVFLUSH [facility] Last Admin: 09/20/23 15:00 Dose: 3 ml Documented By: ELLE Tamsulosin HCl (Tamsulosin Hcl 0.4 Mg Capsule) 0.4 mg PO DAILY [facility] Last Admin: 09/20/23 08:06 Dose: 0.4 mg Documented By: ELLE Vitamin D (Cholecalciferol (Vitamin D3) 25 Mcg Tablet) 25 mcg PO DAILY [facility] Last Admin: 09/20/23 08:06 Dose: 25 mcg Documented By: ELLE Labs 09/20/23 08:30 09/20/23 08:30 Labs: Laboratory Results - last 24 hr 09/19/23 09/19/23 09/19/23 16:46 21:08 21:13 MCV MCH MCHC RDW Plt Count MPV Immature Gran % (Auto) Neut % (Auto) Lymph % (Auto) [place] % (Auto) Eos % (Auto) Baso % (Auto) Lymph # (Auto) [place] # (Auto) Eos # (Auto) Baso # (Auto) Abs Immat Gran (auto) Absolute Neuts (auto) Absolute Nucleated RBC Nucleated RBC % (auto) Anion Gap Estim Creat Clear Calc Estimated GFR POC Glucose 184 H 194 H 232 H Random Glucose Calcium 09/20/23 09/20/23 09/20/23 07:45 08:30 11:23 MCV 94.0 MCH 33.4 H MCHC 35.6 RDW 13.3 Plt Count 167 MPV 10.8 Immature Gran % (Auto) 0.7 H Neut % (Auto) 78.4 H Lymph % (Auto) 10.1 L [place] % (Auto) 10.3 Eos % (Auto) 0.1 Baso % (Auto) 0.4 Lymph # (Auto) 1.4 [place] # (Auto) 1.4 H Eos # (Auto) 0.0 Baso # (Auto) 0.1 Abs Immat Gran (auto) 0.09 H Absolute Neuts (auto) 10.6 H Absolute Nucleated RBC 0.000 Nucleated RBC % (auto) 0.0 Anion Gap 15 Estim Creat Clear Calc 62.8 Estimated GFR > 60 POC Glucose 158 H 281 H Random Glucose 182 H Calcium 8.5 D Assessment and Plan (1) Closed fracture of right hip: Status: Acute Plan 77 year old male with history of htn, insulin dependent type 2 diabetes, unspecified dementia, diabetic polyneuropathy, hx uti admitted for R mildly displaced hip fracture. right mildly displaced femoral neck fracture Status post right hip hemiarthroplasty POD #1 pain controlled ortho following Acute leukocytosis likely reactive 2/2 fall with hip fracture insulin-dependent type 2 diabetes -stable blood sugars, follow POC glucose, diabetic diet, basal insulin, continue Humalog on sliding scale hypertension -stable blood pressures, hold lisinopril , Continue low-dose diltiazem diabetic polyneuropathy -continue Lyrica urinary incontinence/BPH -continue oxybutynin, alfuzosin HLD-continue statin DVT prophylaxis-heparin DNR/DNI per [facility] form attending - Dr. Kidd dispo - likely return to [facility] tomorrow Patient requires continued inpatient stay for management of acute displaced femoral neck fracture/postop care, safe disposition Time Spent With Patient Time: Total time managing care of this patient today ____ minutes. Quality Stroke Does the patient have a stroke diagnosis?: No VTE Prior VTE?: No VTE Risk Level:: Medical - moderate - high VTE Device Contraindication: Treatment Not Indicated VTE Drug Contraindication: N/A - Med Ordered
[2023-09-20 16:19] LABS: Glucose, Whole Blood 171 mg/dL (60-115)
--- NOTE | 2023-09-20 17:00 | HO.POSTANES ---
Post Anesthesia Evaluation Post Anesthesia Evaluation Date of Service: 09/20/23 Vital Signs: Vital Signs Temp Pulse Resp BP Pulse Ox O2 Del Method 09/20/23 15:00 98.1 F 80 18 118/59 L 97 Room Air 09/20/23 11:45 98.4 F 86 18 99/50 L 96 Room Air 09/20/23 07:51 98.3 F 95 18 136/62 95 Room Air Anesthesia: General Mental Status: Awake (confused) Pain Control: Satisfactory Nausea/Vomiting: None Hydration: Adequate Anesthesia-Related Issues: No Anes. Related Issues
[2023-09-20 19:00] VITALS: BP 121/57; PULSE 80; RESP 16; TEMP 37; O2SAT 94
[2023-09-20 19:58] LABS: Glucose, Whole Blood 224 mg/dL (60-115)
[2023-09-20] MEDS: Sennosides/Docusate Sodium TABLET 2 TAB PO (20:58)
[2023-09-20] MEDS: oxyCODONE HCl Immed Release 5 MG TABLET PO (20:58)
[2023-09-20] MEDS: Latanoprost 0.005 % Ophth Sol 2.5 ML DROPS 1 DROP EYE-BOTH (20:58)
[2023-09-20 23:00] VITALS: BP 95/55; PULSE 81; RESP 14; TEMP 36.4; O2SAT 94
[2023-09-21] MEDS: Heparin Sodium,Porcine 5,000 UNIT/ML VIAL 5000 UNIT SUBCUT (02:56)
[2023-09-21 03:00] VITALS: BP 109/56; PULSE 89; RESP 14; TEMP 36.5; O2SAT 95
[2023-09-21 07:00] VITALS: BP 125/59; PULSE 83; RESP 18; TEMP 36.9; O2SAT 93
[2023-09-21 07:48] LABS: Glucose, Whole Blood 147 mg/dL (60-115)
[2023-09-21] MEDS: Acetaminophen 325 MG TABLET 650 MG PO (08:13)
[2023-09-21] MEDS: 0.9 % Sodium Chloride Flush 3 ML SYRINGE IVFLUSH (08:13)
[2023-09-21] MEDS: Atorvastatin Calcium 40 MG TABLET PO (08:13)
[2023-09-21] MEDS: Pregabalin 150 MG CAPSULE PO (08:13)
[2023-09-21] MEDS: Tamsulosin HCL 0.4 MG CAPSULE PO (08:14)
[2023-09-21] MEDS: Celecoxib 200 MG CAPSULE PO (08:14)
[2023-09-21] MEDS: Cholecalciferol (Vitamin D3) 25 MCG TABLET PO (08:14)
[2023-09-21] MEDS: dilTIAZem HCL CD 240 MG CAP.ER.DEG PO (08:14)
[2023-09-21] MEDS: Insulin Glargine,Hum.rec.anlog 100 UNIT/ML 10 ML VIAL 25 UNIT SUBCUT (08:14)
[2023-09-21] MEDS: Enoxaparin Sodium 40 MG/0.4 ML SYRINGE SUBCUT (08:14)
--- NOTE | 2023-09-21 08:36 | PM.PNORT ---
Subjective Subjective Date of Service: 09/21/23 Interval history: POD2 s/p rt hip jeyson. Patient is in bed eating breakfast. No overnight events. Pain is managed. No additional complaints. Physical Exam Vital Signs: Vital Signs: Last Vital Signs Temp 98.4 F 09/21/23 07:00 Pulse 83 09/21/23 07:00 Resp 18 09/21/23 07:00 BP 125/59 L 09/21/23 07:00 Pulse Ox 93 09/21/23 07:00 O2 Del Method Room Air 09/21/23 07:00 O2 Flow Rate 6 09/19/23 09:50 BMI result Body Mass Index 24.1 Const: General: cooperative, healthy appearing and no acute distress Resp: Effort & Inspection: normal respiratory effort and able to speak in complete sentences Cardio: Rate: regular rate Peripheral pulses: Peripheral pulses 2+ throughout GI: Palpation (GI): Soft to palpation Skin: Lesions: no lesions Rashes: no rashes Extrem: Other: right hip dressing is c/d/i. Able to dorsi/plantar flex. Calf is supple and nontender. Sensation intact. Pedal pulse intact. Procedures Date of Service Date of Service: 09/21/23 Progress Note: A&P Assessment and plan (1) Closed fracture of right hip: Status: Acute Assessment and Plan: Continue pain mgmnt Lovenox for dvt ppx PT for right hip jeyson Dispo planning-Pending PT eval, pain mgmnt Time Spent With Patient Time: Total time managing care of this patient today ____ minutes. Quality Stroke Does the patient have a stroke diagnosis?: No VTE Prior VTE?: No VTE Risk Level:: Medical - moderate - high VTE Device Contraindication: Treatment Not Indicated VTE Drug Contraindication: N/A - Med Ordered
[2023-09-21 10:18] VITALS: BP 125/59; PULSE 83; O2SAT 93
[2023-09-21 11:00] VITALS: BP 112/56; PULSE 87; RESP 16; TEMP 36.9; O2SAT 96
[2023-09-21 11:20] LABS: Glucose, Whole Blood 195 mg/dL (60-115)
[2023-09-21] MEDS: Insulin Lispro 100 UNIT/ML 3 ML VIAL SUBCUT (11:35)
--- NOTE | 2023-09-21 11:40 | PM.DS ---
DS: Providers Provider Date of Service: 09/21/23 Date of admission: 09/17/23 15:11 Date of discharge: 09/21/23 Primary care physician: Carlos A Sinclair MD Consults: 09/17/23 15:10 Consult to Orthopedics Routine Consulting [place] [facility] [place] [facility] Reason for consultation: R displaced hip fx DS: Diagnosis Discharge Diagnosis (1) Closed fracture of right hip: Status: Acute DS: Summary Hospital Course Hospital Course: From H&P on day of admission 77 year old male with history of htn, insulin dependent type 2 diabetes, unspecified dementia, diabetic polyneuropathy, hx uti presented to the ED earlier today via EMS for evaluation of a fall with right hip pain. He reports he slipped and fell trying to put his socks on this morning and fell directly onto the right hip. Denies any prodrome including lightheadedness, palpitations, shortness of breath, chest pain. Denies any head strike or loss of consciousness. However, was unable to get up on his own and called EMS. On arrival, vital stable. There is a leukocytosis of 15.8. H/H 11.8/34.3%. Creatinine baseline, electrolyte levels normal. Hepatic function panel. Head CT negative for any acute intracranial abnormality. CT cervical spine negative for any acute finding including fracture or malalignment. Incidentally seen is mildly enlarged and heterogenous thyroid gland, follow-up ultrasound recommended. Chest x-ray negative for any acute disease. Right Hip/pelvis x-ray shows an acute, mildly displaced fracture of the right femoral neck. Patient given 975 mg Tylenol for pain. He did discuss case with Orthopedic surgery recommending admission to medicine. right mildly displaced femoral neck fracture Status post right hip hemiarthroplasty on 09/19, currently POD #2 operative course has been uncomplicated. Lovenox for DVT prophylaxis and follow up as per orthopedic team. pain has been adequately controlled. He will be discharged back to [facility] where he is a custodial resident for physical therapy. Lisinopril was held during hospitalization and blood pressure has remained stable. Can resume outpatient as blood pressure allows. Time Spent with Patient Time attestation: Total time managing care of this patient today ____ minutes. Discharge coordination time: Greater than 30 minutes Quality: Safe Use of Opioids Does Pt have an Active Cancer Diagnosis on the Problem List?: No Quality: Stroke Does the patient have a stroke diagnosis?: No Physical Exam Vital Signs: Vital Signs: Last Vital Signs Temp 98.5 F 09/21/23 11:00 Pulse 87 09/21/23 11:00 Resp 16 09/21/23 11:00 BP 112/56 L 09/21/23 11:00 Pulse Ox 96 09/21/23 11:00 O2 Del Method Room Air 09/21/23 11:00 O2 Flow Rate 6 09/19/23 09:50 BMI result Body Mass Index 24.1 Const: Other: observed sitting up in chair General: cooperative, comfortable, alert, awake and confusion Nutritional Appearance: average body habitus Orientation/consciousness: confusion Resp: Effort & Inspection: normal respiratory effort, able to speak in complete sentences, no respiratory distress and no use of accessory muscles Cardio: Rate: regular rate GI: Inspection: No distended Palpation (GI): Soft to palpation and nontender Neuro: Other: grossly nonfocal General: confusion Extrem: General: Yes no pedal edema DS: Data Data Completed and Pending Completed studies during hospitalization [Text1]: Pending at discharge 09/19/23 09:00 Surgical [PTH] Routine Labs on day of discharge: Laboratory Results - last 24 hr 09/20/23 09/20/23 09/21/23 16:15 19:50 07:43 POC Glucose 171 H 224 H 147 H 09/21/23 11:17 POC Glucose 195 H Discharge Plan Discharge Anticipated Discharge Date/Time: 09/21/23 11:36 Patient Disposition: er [facility] Discharge Diagnosis: right femoral neck fracture s/p right hemiarthroplasty Referrals: Carlos A Sinclair MD [Primary Care Provider] - 1 Week Jacob Irby PA-C [Physician [employer]] - 2 Weeks Discharge Medications: New enoxaparin 40 mg/0.4 mL Syringe 40 mg subcut Q24H 42 Days Qty: 16.8 0RF oxycodone 5 mg Tablet 5 mg PO Q6H PRN (Reason: Pain, Moderate(Pain Scale 4-6)) Qty: 14 0RF Rx Instructions: Partial Fill upon patient request. celecoxib 200 mg Capsule 200 mg PO DAILY Qty: 10 0RF insulin glargine [Lantus U-100 Insulin] 100 unit/mL Solution 25 unit subcut DAILY Qty: 10 0RF insulin lispro [Humalog U-100 Insulin] 100 unit/mL Solution See Protocol [facility] Qty: 10 0RF Protocol: Insulin Correction Scale Less than or equal to 110 ---- Give (units): 0 111 to 150 Give (units): 0 151 to 200 Give (units): 2 201 to 250 Give (units): 4 251 to 300 Give (units): 6 301 to 350 Give (units): 8 Greater than 350 Give (units): 10 Call MD if Blood Glucose > : 350 Continued latanoprost 0.005 % Drops 1 drp OPHTHALMIC (EYE) BEDTIME atorvastatin 40 mg Tablet 40 mg PO DAILY sennosides-docusate sodium [Senna-S] 8.6-50 mg Tablet 2 tab-cap PO BEDTIME alfuzosin 10 mg Tablet Extended Release 24 Hr 10 mg PO DAILY Rx Instructions: administer after the same meal each day pregabalin 150 mg Capsule 150 mg PO BID metformin 500 mg Tablet 500 mg PO DAILY diltiazem HCl [Cardizem LA] 240 mg Tablet Extended Release 24 Hr 240 mg PO DAILY cholecalciferol (vitamin D3) 25 mcg (1,000 unit) Tablet 25 mcg PO DAILY Held aspirin 81 mg Tablet,Delayed Release (Dr/Ec) 81 mg PO DAILY Hold Instructions: placed on hold for surgery. will be getting lovenox for DVT ppx - resume as indicated Discontinued insulin aspart U-100 [Novolog U-100 Insulin aspart] 100 unit/mL Solution See Protocol SUBCUT TIDAC Protocol: Insulin Correction Scale Less than or equal to 110 ---- Give (units): 0 111 to 150 Give (units): 0 151 to 200 Give (units): 2 201 to 250 Give (units): 4 251 to 300 Give (units): 6 301 to 350 Give (units): 8 Greater than 350 Give (units): 10 Call MD if Blood Glucose > : 350 insulin glargine 100 unit/mL Solution 35 unit SUBCUT DAILY lisinopril 5 mg Tablet 5 mg PO DAILY Discharge Orders: Discharge Order (Routine); Ordered 09/21/23 Ordered By: Claudia Garcia Activity on Discharge: As tolerated Stand Alone Forms: Patient Portal Discharge page Care Plan Goals: see below Health Concerns: right hip fracture Plan of Treatment: Physical Therapy for jeyson hip arthroplasty: wbat, posterior precautions, gait training, ROM, strength Limit stair climbing No showering, no tub bath-keep dressing clean, dry and intact No driving x6 weeks Continue Lovenox x 6 weeks [place] [facility] [place] [place]: --you will also have your first out patient PT genoal on the day of your post op appt-so please plan on being in the office that day for an extended period of time. Dose of Lantus was decreased to 25U, was covered with sliding scale of insulin. Follow POC and can uptitrate insulin as needed. oxycodone prn for pain lisinopril was placed on hold during hospitalization. blood pressure has been controlled, follow blood pressure, can be resumed as BP allows Assessment: see dischare summary
--- NOTE | 2023-09-21 12:56 | MHC.CM.PN ---
PT CLEARED TO DC BACK TO [facility] TODAY [facility] CONFIRMED THEY ARE ABLE TO ACCEPT THIS AFTERNOON CM CALLED BIJAN AT THE [facility] [phone] BIJAN CLEARED PTS RETURN WITH [facility]IA[facility] AND BOOKED BLS TRANSPORT WITH [facility] FOR 1400 HOURS DCS FAXED TO BIJAN AT [phone] SISTER/HCP, SKYLA [phone] INFORMED VIA T/C
--- NOTE | 2023-09-24 09:38 | W.PM.OPN ---
Operative Note Operative Note Date of Service: 09/19/23 Narrative: Date of Service: 09/19/23 Pre-op diagnosis: Right femoral neck fracture Post-op diagnosis: same Procedure: Right hip Ulices Implants: Debary Accolade2 #6 127 deg with +03/21/48 bipolar Surgeon: Matt Kay MD Anesthesia: GETA and local Was an Clinical Applications Specialist used for this Procedure?: Yes Clinical Applications Specialist: Sapphire Cuevas Estimated blood loss (mL): 250 IV fluids (mL): 800 Pathology: other Condition: stable Disposition: PACU Procedure in detail: Patient was brought to the operative room placed in the lateral decubitus position. All bony prominences were well padded and the was prepped and draped in standard sterile fashion. IV antibiotics per weight were administered and a time-out was called to identify proper site proper procedure proper surgeon. Radiographs were available and confirmed. TXA was administered. I began by making a curvilinear incision over the posterolateral aspect of the greater trochanter. Dissection was taken down to the tensor fascia which was incised in line with the incision and a Charnley retractor was placed. The hip was internally rotated and the external rotators were identified. All vessels in the area were cauterized and a full-thickness capsular/external rotator layer was developed in a hockey-stick fashion starting just proximal to the piriformis. This layer was tagged and the displaced femoral neck fracture was identified. Clean-up cuts was performed while protection the posterolateral soft tissues and the head was removed and measured (_48 mm) on the back table. I then copiously irrigated the acetabulum and removed all bony fragments. Once this was done I used a cookie cutter to lateralize and a Charnley awl to identify the canal and then sequentially broached up to a 127 deg #6. I then trialed with a standard head and a bipolar component matching the femoral head size. I was satisfied with the range of motion and stability and length. Therefore I removed all instrumentation and copiously irrigated. I then placed my final femoral implant and then retrialed. I was satisfied with the +03/21/48 implant. My final bipolar componenet were then placed. I closed the capsular layer with FiberWire . I performed a layered closure with zachariah on skin. The patient was placed in sterile dressing extubated brought to recovery room in stable condition there were no known complications.
== END 2023-09-21 14:19 | disposition skilled nursing facility (03) | DRG 522 ==
LOC: HO.ED 12:24 → HO.EDOVER 15:38 → HO.S3 09-18 17:13
PROVIDERS: Hospitalist; Orthopaedic Surgery; Physician Assistant; Admitting Provider Physician Assistant; Emergency Provider Emergency Medicine; PCP Family Medicine Geriatric Medicine; Visit Provider Physician Assistant Medical
PROC: 0SRR0JA Replacement of Right Hip Joint, Femoral Surface with Synthetic Substitute, Uncemented, Open Approach (ICD-10-PCS; CPT 27125; principal; 2023-09-19 07:30)
DX: S72.001A Fracture of unspecified part of neck of right femur, initial encounter for closed fracture (principal); W19.XXXA Unspecified fall, initial encounter; F03.90 Unspecified dementia, unspecified severity, without behavioral disturbance, psychotic disturbance, mood disturbance, and anxiety; E11.42 Type 2 diabetes mellitus with diabetic polyneuropathy; Z66 Do not resuscitate; I10 Essential (primary) hypertension; N40.1 Benign prostatic hyperplasia with lower urinary tract symptoms; N39.498 Other specified urinary incontinence; E78.5 Hyperlipidemia, unspecified; D64.9 Anemia, unspecified; F17.210 Nicotine dependence, cigarettes, uncomplicated; Z71.6 Tobacco abuse counseling; Z79.4 Long term (current) use of insulin; Z79.82 Long term (current) use of aspirin; Z79.84 Long term (current) use of oral hypoglycemic drugs; Z79.899 Other long term (current) drug therapy
CPT/HCPCS: 36415; 70450; 71045; 72125; 73502; 80048; 80076; 81001; 82947; 83735; 85025; 86850; 86900; 86901; 88304; 88305; 88311; 92950; 93005; 97162; 97166; 97530; 97535; 99285; C1776; J0690; J1170; J1643; J1650; J2270; J2371; J2405; J2795; J3010

== ENCOUNTER → 2023-09-17 15:11 | Outpatient (BNV) | payer OTHER, SELFPAY | PROVIDERS: Admitting Provider Physician Assistant; Emergency Provider Emergency Medicine; PCP Family Medicine Geriatric Medicine; Visit Provider Physician Assistant | DX: S72.001A Fracture of unspecified part of neck of right femur, initial encounter for closed fracture (principal) | CPT/HCPCS: 99223; 99232; 99233; 99239 ==

== ENCOUNTER → 2023-09-17 15:11 | Outpatient (BNV) | payer OTHER, SELFPAY | PROVIDERS: Admitting Provider Physician Assistant; Emergency Provider Emergency Medicine; PCP Family Medicine Geriatric Medicine; Visit Provider Orthopaedic Surgery | DX: S72.001A Fracture of unspecified part of neck of right femur, initial encounter for closed fracture (principal) | CPT/HCPCS: 27236; 99024; 99223 ==

== ENCOUNTER 2023-09-21 18:17 | Emergency (ER) | payer OTHER, SELFPAY ==
--- NOTE | ~2023-09-21 | XR_ITS ---
EXAMINATION: XR CHEST CLINICAL INFORMATION: Altered mental status. COMPARISON: Chest exam 09/17/2023 TECHNIQUE: Frontal view of the chest was obtained. FINDINGS: No significant abnormality is noted involving the heart, lungs, mediastinum, bony thorax or soft tissues. XR/XR chest 1V IMPRESSION: Unremarkable chest examination.
[2023-09-21 18:25] VITALS: BP 128/52; PULSE 82; O2SAT 97; BMI 22.0
[2023-09-21 19:13] VITALS: BP 122/46; PULSE 86; RESP 18; TEMP 37.2; O2SAT 98
--- NOTE | 2023-09-21 19:16 | PC.NURSE ---
this rn assumed care of pt. pt sent from [facility] for increased agitation [place] [facility]. pt unable to state where is he and what year it is but is able to state his birthday at this time. pt is currently resting in bed, not combative at this time. pt denies pain, but states he will have pain if this rn touches the right hip. pt was seen here previously for a right hip fractrure. pt normal sinus on tele [id number].
--- NOTE | 2023-09-21 19:48 | ED.GENADULT ---
HPI - General Adult General Chief complaint: Altered Mental Status Stated complaint: ABD PAIN Time Seen by Provider: 09/21/23 19:48 Source: RN notes reviewed and old records reviewed History of Present Illness HPI narrative: 77-year-old male with a history of dementia, hypertension, diabetes, return to the emergency department after being discharged from inpatient unit status post right hip hemiarthroplasty secondary to fall. Apparently the patient was more confused than baseline and agitated. Patient was noted to be prescribed oxycodone. History is obtained from the patient's chart. The the patient has no physical complaints at this time. Related Data Home Medications Medication Instructions Recorded Confirmed alfuzosin 10 mg tablet,extended 10 mg PO DAILY 02/23/23 09/21/23 release 24 hr atorvastatin 40 mg tablet 40 mg PO DAILY 02/23/23 09/21/23 latanoprost 0.005 % eye drops 1 drp ophthalmic (eye) BEDTIME 02/23/23 09/21/23 pregabalin 150 mg capsule 150 mg PO BID 02/23/23 09/21/23 sennosides 8.6 mg-docusate sodium 2 tab-cap PO BEDTIME 02/23/23 09/21/23 50 mg tablet (Senna-S) aspirin 81 mg tablet,delayed 81 mg PO DAILY 09/17/23 09/17/23 release cholecalciferol (vitamin D3) 25 25 mcg PO DAILY 09/17/23 09/21/23 mcg (1,000 unit) tablet diltiazem HCl 240 mg 240 mg PO DAILY 09/17/23 09/21/23 tablet,extended release 24 hr (Cardizem LA) metformin 500 mg tablet 500 mg PO DAILY 09/17/23 09/21/23 Previous Rx's Medication Instructions Recorded celecoxib 200 mg capsule 200 mg PO DAILY #10 caps 09/21/23 enoxaparin 40 mg/0.4 mL 40 mg (0.4 mL) subcut Q24H 42 days 09/21/23 subcutaneous syringe #16.8 mL insulin glargine 100 unit/mL 25 unit (0.25 mL) subcut DAILY #10 09/21/23 subcutaneous solution (Lantus mL U-100 Insulin) insulin lispro 100 unit/mL See Protocol subcut QIDACHS #10 mL 09/21/23 subcutaneous solution (Humalog U-100 Insulin) oxycodone 5 mg tablet 5 mg PO Q6H PRN Pain, 09/21/23 Moderate(Pain Scale 4-6) #14 tabs Allergies Allergy/AdvReac Type Severity Reaction Status Date / Time No Known Allergies Allergy Unverified 08/12/20 14:34 Review of Systems Review of Systems: Unable to obtain [facility], [facility] Past Medical History Source: unable to obtain and old records reviewed Medical History (Updated 09/22/23 @ 00:55 by SAMI Burroughs) BPH (benign prostatic hyperplasia) History of UTI Hypertension Neuropathy Diabetes Social History Social History Household Members: Unknown / Unable to assess Housing: House Unable to assess alcohol history related to: Unable to respond Alcohol intake: never Patient Tobacco Use Status: Never used Tobacco Tobacco use type: Cigarette Cigarette Packs Per Day: 1 Cigarettes Per Day: 9 Years Smoked: 50 e-Cigarette/Vaping Use: Never Used Second Hand Smoke Exposure: Yes Use of substances other than those prescribed or required for medical reasons: Unable to respond Advance Directives: Yes Advance Directives on File: Yes Advance Directives Date on File: 07/24/23 service: Yes Current occupational status: retired Physical Exam ED Vital Signs: Vital Signs - 24 hr 09/21/23 19:13 09/22/23 00:13 Temperature 98.9 F Pulse Rate 86 83 Respiratory Rate 18 16 Blood Pressure 122/46 L Pulse Oximetry 98 Oxygen Delivery Method Room Air BMI result Body Mass Index 22.0 Const General: cooperative Orientation/consciousness: oriented to person Resp Auscultation: clear to auscultation bilaterally, no crackles and no rales Cardio Rhythm: regular rhythm Heart sounds: Murmur heart sound present GI Palpation (GI): Soft to palpation and nontender Skin Other: Surgical site at the right hip demonstrates intact dressing without any erythema or discharge or bleeding Neuro General: oriented to person Course Reevaluation(s) Reevaluation #1: Patient refusing lab draws. I feel that this is reasonable at this time given the patient was just discharged from the hospital. Will check x-ray and urinalysis. Time: 21:30 Reevaluation #2: Patient was able to cooperate for straight catheter. Urinalysis returned without any acute process. Chest x-ray is negative. Patient has been resting comfortably while in the emergency department. He has not needed in the additional analgesia. Patient will be discharged back to facility. Discussed with Dr. Cho who agrees with plan. Medical Decision Making Medical Decision Making [facility] Narrative: 77-year-old male status post right hip hemiarthroplasty presents from half-way facility for evaluation of mental status changes and agitation. Currently is resting comfortable. Check chest x-ray, UA and basic labs. Differential Diagnosis Differential Diagnoses: The differential diagnosis associated with the presentation includes UTI Pneumonia Postop infection, lower suspicion Dementia Medication reaction Lab Data Labs: Lab Results 09/22/23 Range/Units 00:15 Urine Color Yellow Urine Appearance Clear Urine pH 6.0 (5.0-9.0) Ur Specific [place] 1.025 (1.005-1.025) Urine Protein 30 (1+) H (Neg-Trace) mg/dL Urine Glucose (UA) 100 H (Negative) mg/dL Urine Ketones Trace (Negative) mg/dL Urine Blood Negative (Negative) Urine Nitrite Negative (Negative) Ur Leukocyte Esterase Negative (Negative) Urine RBC 0-2 (0-2) /HPF Urine WBC 0-5 (0-5) /HPF Ur Squamous Epith Cells 0-2 (0-2) /HPF Urine Bacteria None Seen (None Seen) Hyaline Casts 0-2 (0-2) /LPF Discharge Plan Discharge Clinical Impression: Agitation Closed hip fracture requiring operative repair Qualifiers: Encounter type: sequela Laterality: right Qualified Code(s): S72.001S - Fracture of unspecified part of neck of right femur, sequela Patient Disposition: er [facility] Instructions: Acute Delirium (ED) Additional Instructions: Chest x-ray and urinalysis did not reveal any acute process. Caution with analgesia, such as oxycodone. Follow-up with your primary care provider. Call this week to schedule a follow-up appointment. Return to the emergency department if you have any worsening of symptoms, or any concerns. Get well soon! Prescriptions: No Action latanoprost 0.005 % Drops 1 drp OPHTHALMIC (EYE) BEDTIME atorvastatin 40 mg Tablet 40 mg PO DAILY sennosides-docusate sodium [Senna-S] 8.6-50 mg Tablet 2 tab-cap PO BEDTIME alfuzosin 10 mg Tablet Extended Release 24 Hr 10 mg PO DAILY Rx Instructions: administer after the same meal each day pregabalin 150 mg Capsule 150 mg PO BID metformin 500 mg Tablet 500 mg PO DAILY aspirin 81 mg Tablet,Delayed Release (Dr/Ec) 81 mg PO DAILY Hold Instructions: placed on hold for surgery. will be getting lovenox for DVT ppx - resume as indicated diltiazem HCl [Cardizem LA] 240 mg Tablet Extended Release 24 Hr 240 mg PO DAILY cholecalciferol (vitamin D3) 25 mcg (1,000 unit) Tablet 25 mcg PO DAILY enoxaparin 40 mg/0.4 mL Syringe 40 mg subcut Q24H 42 Days Qty: 16.8 0RF oxycodone 5 mg Tablet 5 mg PO Q6H PRN (Reason: Pain, Moderate(Pain Scale 4-6)) Qty: 14 0RF Rx Instructions: Partial Fill upon patient request. celecoxib 200 mg Capsule 200 mg PO DAILY Qty: 10 0RF insulin glargine [Lantus U-100 Insulin] 100 unit/mL Solution 25 unit subcut DAILY Qty: 10 0RF insulin lispro [Humalog U-100 Insulin] 100 unit/mL Solution See Protocol subcut QIDACHS Qty: 10 0RF Protocol: Insulin Correction Scale Less than or equal to 110 ---- Give (units): 0 111 to 150 Give (units): 0 151 to 200 Give (units): 2 201 to 250 Give (units): 4 251 to 300 Give (units): 6 301 to 350 Give (units): 8 Greater than 350 Give (units): 10 Call MD if Blood Glucose > : 350
--- NOTE | 2023-09-21 20:34 | PHA.MEDREC ---
Pharmacy Consult ? Medication Reconciliation Pharmacy has completed the medication reconciliation. Patient just discharged from here this morning 09/21, utilized discharge summary. Christina Serrano, LexisD
--- NOTE | 2023-09-21 21:06 | PC.NURSE ---
[facility] attempted labs on patient, pt refused and pulled away arm. attempted a second time and pt refused, provider aware at this time.
[2023-09-22 00:13] VITALS: PULSE 83; RESP 16
--- NOTE | 2023-09-22 00:21 | PC.NURSE ---
this rn straight cath pt per provider order, pt tolerated procedure well, 250ml yellow urine noted on output.
[2023-09-22 00:22] LABS: Appearance Urine Clear; Color Urine Yellow; Glucose Urine UA 100 mg/dL (Negative); Leukocyte Esterase Urine Negative (Negative); Nitrite Urine Negative (Negative); Specific Gravity - Urine 1.025 (1.005-1.025); UMIC TRIGGER UA YES; Urine Blood Negative (Negative); Urine Ketones Trace mg/dL (Negative); Urine Protein 30 (1+) mg/dL (Neg-Trace)
[2023-09-22 00:39] LABS: Bacteria Urine None Seen (None Seen); Hyaline Casts Urine 0-2 /LPF (0-2); RBC Urine 0-2 /HPF (0-2); Squamous Epithelial Cell Urine 0-2 /HPF (0-2); WBC Urine 0-5 /HPF (0-5)
--- NOTE | 2023-09-22 00:55 | PC.NURSE ---
report given to carina josue. plan to book ambulance for pt.
--- NOTE | 2023-09-22 01:12 | MHC.EDTECH ---
call out to [facility] at 0112 to book transport for pt back to [facility], estimated eta given was 0212
[2023-09-22 05:28] VITALS: BP 122/76; PULSE 78; RESP 18; O2SAT 95
== END 2023-09-22 05:29 | disposition skilled nursing facility (03) ==
PROVIDERS: Physician Assistant; Emergency Provider Emergency Medicine; PCP Family Medicine Geriatric Medicine
DX: R41.82 Altered mental status, unspecified (principal); R45.1 Restlessness and agitation; Z98.890 Other specified postprocedural states; S72.001D Fracture of unspecified part of neck of right femur, subsequent encounter for closed fracture with routine healing; W19.XXXD Unspecified fall, subsequent encounter; E11.9 Type 2 diabetes mellitus without complications; I10 Essential (primary) hypertension; F03.90 Unspecified dementia, unspecified severity, without behavioral disturbance, psychotic disturbance, mood disturbance, and anxiety; Z79.82 Long term (current) use of aspirin; Z79.899 Other long term (current) drug therapy; Z79.01 Long term (current) use of anticoagulants; Z79.4 Long term (current) use of insulin; Z87.440 Personal history of urinary (tract) infections; Z87.891 Personal history of nicotine dependence
CPT/HCPCS: 71045; 81001; 99283; 99285

== ENCOUNTER 2023-10-04 06:45 | Outpatient (REF) | payer OTHER, SELFPAY ==
--- NOTE | ~2023-10-04 | XR_ITS ---
EXAMINATION: XR HIP, RIGHT CLINICAL INFORMATION: Pain and unspecified hip. COMPARISON: 09/17/2023. TECHNIQUE: AP view of the pelvis and 3 views of the right hip. of the right hip. FINDINGS: The bones are diffusely demineralized. Surgical zachariah lateral to the right hip. Status post interval right total hip arthroplasty. Hardware appears intact. The bones are diffusely demineralized. Moderate degenerative changes in the bilateral sacroiliac joints and left hip. Extensive vascular calcifications. Degenerative changes on limited views of the lower lumbar spine. XR/XR hip RT w PEL1V IMPRESSION: Status post right total hip arthroplasty. Hardware appears intact.
== END 2023-10-04 06:46 | disposition home or self-care (01) ==
LOC: HO.HOSX 06:45
PROVIDERS: Visit Provider Physician Assistant
DX: S72.001D Fracture of unspecified part of neck of right femur, subsequent encounter for closed fracture with routine healing (principal)
CPT/HCPCS: 73502

== ENCOUNTER 2023-10-05 12:16 | Inpatient (IN) | payer OTHER, SELFPAY ==
[2023-10-05] VITALS (34 sets, daily range): BP systolic 69–141; BP diastolic 29–89; PULSE 54–87; RESP 13–20; TEMP 35.8–37.1; O2SAT 91–99; BMI 24.3; BMI 20.9
--- NOTE | ~2023-10-05 | XR_ITS ---
EXAMINATION: XR CHEST CLINICAL INFORMATION: Lethargy COMPARISON: Previous chest x-ray August 2023 TECHNIQUE: Frontal view of the chest was obtained. FINDINGS: The cardiac and mediastinal contours are normal. There is a right jugular line with tip projecting over the SVC. There are increased markings at the left lung base questionable for left lower lobe atelectasis or small infiltrate. The right lung is clear. There is blunting at the right costophrenic angle questionable for a small right pleural effusion. No left pleural effusion. No pneumothorax. Degenerative changes of the spine and shoulders. XR/XR chest 1V IMPRESSION: Question small infiltrate at the left lung base. Right jugular line projects over SVC. No pneumothorax.
--- NOTE | ~2023-10-05 | CT_ITS ---
EXAMINATION: CT ABDOMEN AND PELVIS WITHOUT CONTRAST CLINICAL INFORMATION: Sepsis. Recent surgery to the right hip. Rule out infection. COMPARISON: Renal ultrasound January [address] of the abdomen and pelvis from 2011 TECHNIQUE: Multidetector volumetric imaging was performed from the superior aspect of the liver through the pubic symphysis. Sagittal and coronal reformatted images were obtained on the technologist's workstation. This CT examination was performed using dose optimization techniques as appropriate, variously including the following: *Automated exposure control *Adjustment of mA and/or kV according to patient size (this includes techniques or standardized protocols for targeted exams where dose is matched to indication/reason for exam; i.e. extremities or head) *Use of iterative reconstruction technique DLP: 896 mGy-cm FINDINGS: LUNG BASES: Bilateral lower lobe dependent atelectasis/. LIVER, GALLBLADDER, AND BILIARY TREE: The liver is normal in size, shape, and attenuation. No focal hepatic lesion or biliary ductal dilatation is present. The gallbladder has been removed. PANCREAS: Unremarkable. SPLEEN: Unremarkable. ADRENAL GLANDS: Unremarkable. KIDNEYS AND URETERS: The kidneys are normal in size, shape, and attenuation. No hydronephrosis, hydroureter, or calculi seen. Small left renal cyst. No imaging follow-up recommended. No perinephric stranding. BLADDER: There is a Srinivasan catheter in the bladder. There is air in the latter presumably related to Srinivasan catheter placement. GASTROINTESTINAL TRACT: There is wall thickening and edema of the distal colon and rectum suggestive of proctocolitis. Small and large bowel is otherwise normal. The appendix is normal. ABDOMINAL WALL: Small bilateral inguinal hernias containing fat. Small amount of air and stranding of the subcutaneous fat of the anterior abdominal wall likely related to subcutaneous injection sites. LYMPH NODES: Normal. VASCULAR: Atherosclerotic disease. No aneurysm. PELVIC VISCERA: Marie enlarged prostate gland measuring 4 x 5 cm. OSSEOUS STRUCTURES: Right hip replacement. No abnormal air or fluid collection. Degenerative changes of the left hip and spine. CT/CT abdomen pelvis wo IV con IMPRESSION: Proctocolitis. Right hip replacement. No surrounding abnormal air or fluid collection. Srinivasan catheter in the bladder. Slightly enlarged prostate gland. Fleischner guidelines were followed.
--- NOTE | 2023-10-05 13:03 | PC.NURSE ---
Addendum entered by Vasiliy Lopez RN 10/05/23 13:04: MULTIPLE ATTEMPTS TO ESTABLISH PERIPHERAL IV ACCESS; ATTEMPTS UNSUCCESSFUL. PT BP CURRENTLY 71/33; MD AT BEDSIDE ESTABLISHING CENTRAL LINE Original Note: PROVIDER AT BEDSIDE INSERTING CENTRAL LINE
--- NOTE | 2023-10-05 13:30 | ED.GENADULT ---
HPI - General Adult General Chief complaint: Altered Mental Status Stated complaint: LOW BP Time Seen by Provider: 10/05/23 12:18 Source: EMS Mode of arrival: EMS Limitations: altered mental status History of Present Illness HPI narrative: Patient sent in from the assisted with lethargy and very low BP Onset (ago): hour(s) Related Data Home Medications Medication Instructions Recorded Confirmed alfuzosin 10 mg tablet,extended 10 mg PO DAILY 02/23/23 09/21/23 release 24 hr atorvastatin 40 mg tablet 40 mg PO DAILY 02/23/23 09/21/23 latanoprost 0.005 % eye drops 1 drp ophthalmic (eye) BEDTIME 02/23/23 09/21/23 pregabalin 150 mg capsule 150 mg PO BID 02/23/23 09/21/23 sennosides 8.6 mg-docusate sodium 2 tab-cap PO BEDTIME 02/23/23 09/21/23 50 mg tablet (Senna-S) aspirin 81 mg tablet,delayed 81 mg PO DAILY 09/17/23 09/17/23 release cholecalciferol (vitamin D3) 25 25 mcg PO DAILY 09/17/23 09/21/23 mcg (1,000 unit) tablet diltiazem HCl 240 mg 240 mg PO DAILY 09/17/23 09/21/23 tablet,extended release 24 hr (Cardizem LA) metformin 500 mg tablet 500 mg PO DAILY 09/17/23 09/21/23 Previous Rx's Medication Instructions Recorded celecoxib 200 mg capsule 200 mg PO DAILY #10 caps 09/21/23 enoxaparin 40 mg/0.4 mL 40 mg (0.4 mL) subcut Q24H 42 days 09/21/23 subcutaneous syringe #16.8 mL insulin glargine 100 unit/mL 25 unit (0.25 mL) subcut DAILY #10 09/21/23 subcutaneous solution (Lantus mL U-100 Insulin) insulin lispro 100 unit/mL See Protocol subcut QIDACHS #10 mL 09/21/23 subcutaneous solution (Humalog U-100 Insulin) oxycodone 5 mg tablet 5 mg PO Q6H PRN Pain, 09/21/23 Moderate(Pain Scale 4-6) #14 tabs Allergies Allergy/AdvReac Type Severity Reaction Status Date / Time No Known Allergies Allergy Unverified 10/04/23 12:06 Review of Systems Review of Systems: Yes Unobtainable due to mental status Neurologic: Denies Sensory deficit (Neuro) [facility] Past Medical History Medical History BPH (benign prostatic hyperplasia) History of UTI Hypertension Neuropathy Diabetes Social History Social History Household Members: Unknown / Unable to assess Housing: House Unable to assess alcohol history related to: Unable to respond Alcohol intake: never Patient Tobacco Use Status: Never used Tobacco Tobacco use type: Cigarette Cigarette Packs Per Day: 1 Cigarettes Per Day: 9 Years Smoked: 50 Smoked in Last 30 Days: No e-Cigarette/Vaping Use: Never Used Second Hand Smoke Exposure: Yes Use of substances other than those prescribed or required for medical reasons: No Advance Directives: Yes Advance Directives on File: Yes Advance Directives Date on File: 07/24/23 service: Yes Current occupational status: retired Physical Exam ED Vital Signs: Vital Signs - 24 hr 10/05/23 12:26 10/05/23 14:10 10/05/23 14:25 Temperature 97.6 F 96.5 F L Pulse Rate 84 77 Respiratory Rate 16 18 Blood Pressure 71/34 L 84/36 L Pulse Oximetry 94 98 Oxygen Delivery Method Room Air Room Air 10/05/23 14:58 10/05/23 15:20 10/05/23 15:33 Temperature Pulse Rate 80 80 84 Respiratory Rate 15 16 18 Blood Pressure 77/30 L 80/40 L 83/32 L Pulse Oximetry 95 95 95 Oxygen Delivery Method Room Air Room Air Room Air 10/05/23 15:44 Temperature Pulse Rate 86 Respiratory Rate Blood Pressure 83/32 L Pulse Oximetry Oxygen Delivery Method BMI result Body Mass Index 20.9 Const Other: elderly thin male appearing very dry Limitations: altered mental status HENMT Other: dry oral pharynx Head: Yes normal to inspection Ears: external ears normal General nose exam: Normal external nose present Throat: Yes posterior oropharynx normal Eyes General: appearance normal, both eyes and all related structures Neck Neck: Yes normal visual inspection Chest Chest palpation & inspection: normal inspection of the chest Resp Auscultation: clear to auscultation bilaterally Cardio Jugular venous distension: no JVD Rate: regular rate Rhythm: regular rhythm Heart sounds: S1 normal heart sound present and S2 normal heart sound present GI Inspection: Yes normal to inspection Palpation (GI): Soft to palpation, nontender and No hepatosplenomegaly present Auscultation: normal bowel sounds General: Yes no CVA tenderness Back/Spine/Pelvis Back: no CVA tenderness Skin Other: dry, right hip with well healing wound Neuro Other: moves all extremities Cranial nerves: Yes CN's II-XII intact bilaterally Sensory Exam: No Sensory deficit (Neuro) Extrem General: Yes normal to inspection Psych Appearance: grossly normal Course Reevaluation(s) Reevaluation #1: Proper hand hygiene, cap, gown and sterile gloves place worn. Patient prepped and draped in sterile fashion, 1% lidocaine used for anesthesia, sterile US cover used, central line placed using US. Central line 16cm at the neck. Sutured in place Time: 13:32 Reevaluation #2: Patient remains hypotensive will start levophed and get patient admitted to the ICU Time: 15:34 Reevaluation #3: I spent 90 minutes of critical care, with interventions, assessments, speaking to patient, consultants, and family. Time: 15:43 Medications Administered Generic Name Dose Route Start Last Admin Trade Name Freq PRN Reason Stop Dose Admin Norepinephrine Bitartrate 8 mg in 250 mls @ 0 mls/hr 10/05/23 15:30 10/05/23 15:44 Levophed IV 0.05 mcg/kg/min .Q0M YULIANA 5.84 mls/hr Administration Protocol Per Protocol Sodium Chloride 1,000 mls @ 200 mls/hr 10/05/23 15:30 10/05/23 15:35 Ns IVCONT 10/05/23 20:29 200 mls/hr .Q5H YULIANA Administration Discontinued Medications Generic Name Dose Route Start Last Admin Trade Name Freq PRN Reason Stop Dose Admin Sodium Chloride 1,869 mls @ 1,869 mls/hr 10/05/23 13:33 10/05/23 15:13 Ns 30 ml/kg infuse over 1 hr (1869 ml) 10/05/23 14:32 Infused IV Infusion .Q1H STA Piperacillin Sod/Tazobactam 50 mls @ 100 mls/hr 10/05/23 13:33 10/05/23 15:13 Sod 3.375 gm/ Sodium Chloride IV 10/05/23 14:02 Infused ONCE ONE Infusion Sodium Chloride 1,869 mls @ 1,869 mls/hr 10/05/23 14:41 10/05/23 15:35 Ns 30 ml/kg infuse over 1 hr (1869 ml) 10/05/23 15:40 Infused IV Infusion .Q1H STA Medical Decision Making Differential Diagnosis Differential Diagnoses: The differential diagnosis associated with the presentation includes (sepsis, COVID, pneumonia, bacteremia, ) Admission/Observation Consideration of admission/observation: Escalation of care including admission/observation considered (upon arrival patient was considered for admission) Consult Healthcare Provider Management of the patient was discussed with: Loan Representative (Dr. Vidal) Lab Data MDM Lab Attestation statement: I reviewed the patient's lab results. (elevated WBC, renal failure, high glucose all recognized) 10/05/23 13:38 10/05/23 13:38 Labs: Lab Results 10/05/23 10/05/23 10/05/23 Range/Units 13:38 13:39 13:45 WBC 19.6 H (4.8-10.8) X10*3/uL RBC 2.91 L (4.60-5.80) X10*6/uL Hgb 9.6 L (14.0-18.0) g/dl Hct 28.4 L (42.0-52.0) % MCV 97.6 (80.0-98.0) fL MCH 33.0 (27.0-33.0) pg MCHC 33.8 (31.0-36.0) g/dl RDW 14.7 (11.0-16.0) % Plt Count 403 H D (160-400) X10*3/uL MPV 9.5 (9.4-12.4) fL Immature Gran % (Auto) 1.2 H (0.0-0.4) % Neut % (Auto) 89.1 H (45-73) % Lymph % (Auto) 4.2 L (20-40) % Nance % (Auto) 5.2 (2-11) % Eos % (Auto) 0.0 (0-4) % Baso % (Auto) 0.3 (0-2) % Lymph # (Auto) 0.8 L (1.2-4.9) X10*3/uL [place]ance # (Auto) 1.0 (0.1-1.2) X10*3/uL Eos # (Auto) 0.0 (0.0-0.4) X10*3/uL Baso # (Auto) 0.1 (0.0-0.2) X10*3/uL Abs Immat Gran (auto) 0.24 H (0.00-0.03) X10*3/uL Absolute Neuts (auto) 17.4 H (2.0-8.3) x10*3/uL Absolute Nucleated RBC 0.000 (0.0-0.012) X10*3/uL Nucleated RBC % (auto) 0.0 (0.0-0.2) /100WBC PT 12.6 (11.1-13.3) SEC INR 1.0 (0.9-1.1) APTT 29.2 (26.0-36.4) SEC VBG pH 7.38 (7.32-7.43) VBG pCO2 42 mmHg VBG pO2 50 mmHg VBG HCO3 25 (22-26) mmol/L VBG O2 Saturation 80.0 % VBG Base Excess 0.6 mmol/L Sodium 136 (135-145) mmol/L Potassium 4.9 (3.3-5.1) mmol/L Chloride 102 (96-108) mmol/L Carbon Dioxide 26 (22-29) mmol/L Anion Gap 13 (12-20) BUN 40 H (9-16) mg/dL Creatinine 2.40 H (0.5-1.4) mg/dL Estim Creat Clear Calc 23.0 Estimated GFR 26 Random Glucose 275 H (60-115) mg/dL Lactic Acid 3.5 H* (0.5-2.0) mmol/L Calcium 8.3 L (8.4-10.2) mg/dL Total Bilirubin 0.5 (0.0-1.0) mg/dL Urine Color Urine Appearance Urine pH (5.0-9.0) Ur Specific [place] (1.005-1.025) Urine Protein (Neg-Trace) mg/dL Urine Glucose (UA) (Negative) mg/dL Urine Ketones (Negative) mg/dL Urine Blood (Negative) Urine Nitrite (Negative) Ur Leukocyte Esterase (Negative) Influenza Type A (PCR) NEGATIVE (Negative) Influenza Type B (PCR) NEGATIVE (Negative) RSV RNA Qual (PCR) NEGATIVE (Negative) SARS-CoV-2 RNA (RT-PCR) NEGATIVE (Negative) 10/05/23 Range/Units 15:19 WBC (4.8-10.8) X10*3/uL RBC (4.60-5.80) X10*6/uL Hgb (14.0-18.0) g/dl Hct (42.0-52.0) % MCV (80.0-98.0) fL MCH (27.0-33.0) pg MCHC (31.0-36.0) g/dl RDW (11.0-16.0) % Plt Count (160-400) X10*3/uL MPV (9.4-12.4) fL Immature Gran % (Auto) (0.0-0.4) % Neut % (Auto) (45-73) % Lymph % (Auto) (20-40) % Nance % (Auto) (2-11) % Eos % (Auto) (0-4) % Baso % (Auto) (0-2) % Lymph # (Auto) (1.2-4.9) X10*3/uL Nance # (Auto) (0.1-1.2) X10*3/uL Eos # (Auto) (0.0-0.4) X10*3/uL Baso # (Auto) (0.0-0.2) X10*3/uL Abs Immat Gran (auto) (0.00-0.03) X10*3/uL Absolute Neuts (auto) (2.0-8.3) x10*3/uL Absolute Nucleated RBC (0.0-0.012) X10*3/uL Nucleated RBC % (auto) (0.0-0.2) /100WBC PT (11.1-13.3) SEC INR (0.9-1.1) APTT (26.0-36.4) SEC VBG pH (7.32-7.43) VBG pCO2 mmHg VBG pO2 mmHg VBG HCO3 (22-26) mmol/L VBG O2 Saturation % VBG Base Excess mmol/L Sodium (135-145) mmol/L Potassium (3.3-5.1) mmol/L Chloride (96-108) mmol/L Carbon Dioxide (22-29) mmol/L Anion Gap (12-20) BUN (9-16) mg/dL Creatinine (0.5-1.4) mg/dL Estim Creat Clear Calc Estimated GFR Random Glucose (60-115) mg/dL Lactic Acid (0.5-2.0) mmol/L Calcium (8.4-10.2) mg/dL Total Bilirubin (0.0-1.0) mg/dL Urine Color Dark Yellow Urine Appearance Cloudy Urine pH 5.0 (5.0-9.0) Ur Specific [place] 1.020 (1.005-1.025) Urine Protein 30 (1+) H (Neg-Trace) mg/dL Urine Glucose (UA) Negative (Negative) mg/dL Urine Ketones Trace (Negative) mg/dL Urine Blood Moderate (2+) H (Negative) Urine Nitrite Negative (Negative) Ur Leukocyte Esterase Trace H (Negative) Influenza Type A (PCR) (Negative) Influenza Type B (PCR) (Negative) RSV RNA Qual (PCR) (Negative) SARS-CoV-2 RNA (RT-PCR) (Negative) Independent Interpretation I performed an independent interpretation of an: EKG (sinus 76, no st or twave changes) and Plain X-Ray (Central line in good position) Independent Historian Clinical information obtained from an independent historian. History obtained from or confirmed by: EMS Chronic Conditions Patient?s care impacted by: Diabetes, Hypertension and Other (dementia) Discharge Plan Discharge Clinical Impression: Sepsis, Acute renal failure, Acute dehydration Patient Disposition: Admitted As Inpatient
[2023-10-05] MEDS: SODIUM CHLORIDE 1869 ML IV ×2 (13:36→14:56)
[2023-10-05] MEDS: Piperacillin Sodium/Tazobactam 3.375 GM in 0.9 % Sodium Chloride 50 ML IV (13:43)
[2023-10-05 13:46] LABS: MANUAL DIFF FLAG NO
[2023-10-05 13:50] LABS: Venous Blood Gas Refer to POC result
[2023-10-05 13:51] LABS: Basophils Absolute Auto 0.1 X10*3/uL (0.0-0.2); Basophils Percent Auto 0.3 % (0-2); Hematocrit 28.4 % (42.0-52.0); Hemoglobin 9.6 g/dl (14.0-18.0); Imm Gran Abs Auto 0.24 X10*3/uL (0.00-0.03); Imm Gran Pct Auto 1.2 % (0.0-0.4); Lymphocytes Absolute Auto 0.8 X10*3/uL (1.2-4.9); Lymphocytes Percent Auto 4.2 % (20-40); Mean Corpuscular HGB Conc 33.8 g/dl (31.0-36.0); Mean Corpuscular Volume 97.6 fL (80.0-98.0); Mean Platelet Volume 9.5 fL (9.4-12.4); Monocytes Percent Auto 5.2 % (2-11); Neutrophils Absolute Auto 17.4 x10*3/uL (2.0-8.3); Neutrophils Percent Auto 89.1 % (45-73); Platelet Count 403 X10*3/uL (160-400); Red Blood Count 2.91 X10*6/uL (4.60-5.80); Red Cell Distribution Width 14.7 % (11.0-16.0); White Blood Count 19.6 X10*3/uL (4.8-10.8)
[2023-10-05 13:51] LABS: VBG Base Excess 0.6 mmol/L; VBG HCO3 25 mmol/L (22-26); VBG pCO2 42 mmHg; VBG pH 7.38 (7.32-7.43); VBG pO2 50 mmHg
--- NOTE | 2023-10-05 14:00 | ECG_ITS ---
Test Reason : AMS Blood Pressure : / mmHG Vent. Rate : 076 BPM Atrial Rate : 076 BPM P-R Int : 222 ms QRS Dur : 072 ms QT Int : 488 ms P-R-T Axes : 055 -05 064 degrees QTc Int : 549 ms Sinus rhythm with 1st degree A-V block Poor data quality Prolonged QT RSR' or QR pattern in V1 suggests right ventricular conduction delay Abnormal ECG When compared with ECG of 17-SEP-2023 11:41, QT has lengthened Referred By: Rommel King Electronically Signed By:LI SHUKLA MD
[2023-10-05 14:04] LABS: Anion Gap 13 (12-20); Bilirubin Total 0.5 mg/dL (0.0-1.0); Blood Urea Nitrogen 40 mg/dL (9-16); Calcium 8.3 mg/dL (8.4-10.2); Carbon Dioxide 26 mmol/L (22-29); Chloride 102 mmol/L (96-108); Estimated Glomerular Filt Rate 26; Glucose Random 275 mg/dL (60-115); Potassium 4.9 mmol/L (3.3-5.1); Sodium 136 mmol/L (135-145)
[2023-10-05 14:06] LABS: Lactic Acid 3.5 mmol/L (0.5-2.0)
--- NOTE | 2023-10-05 14:49 | PC.NURSE ---
FLUID RESUSCITATION COMPLETE; PT REMAINS HYPOTENSIVE AND HYPOTHERMIC. MD NOTIFIED; MD PLACED ORDERS FOR REPEAT FLUID RESUSCITATION AND BEAR HUGGER TO BE APPLIED.
[2023-10-05 15:15] LABS: Influenza A PCR NEGATIVE (Negative); Influenza B PCR NEGATIVE (Negative); Resp Syncy Virus RNA Qual PCR NEGATIVE (Negative); SARS COV2 PCR INHOUSE NEGATIVE (Negative)
--- NOTE | 2023-10-05 15:31 | PC.NURSE ---
PT REMAINS HYPOTENSIVE POST ADMIN OF SECOND FLUID RESUSCITATION. MD NOTIFIED; ORDERS FOR NS 300ML/HR AND LEVOPHED PLACED. PT TO BE TRANSFERRED TO ICU; CARE ONGOING
[2023-10-05 15:34] LABS: Appearance Urine Cloudy; Color Urine Dark Yellow; Glucose Urine UA Negative (Negative); Leukocyte Esterase Urine Trace (Negative); Nitrite Urine Negative (Negative); UMIC TRIGGER UACC YES; Urine Blood Moderate (2+) (Negative); Urine Ketones Trace mg/dL (Negative); Urine Protein 30 (1+) mg/dL (Neg-Trace)
[2023-10-05] MEDS: 0.9 % Sodium Chloride 1,000 ML 200 ML IVCONT (15:35)
[2023-10-05 15:40] LABS: Prothrombin Time 12.6 SEC (11.1-13.3)
[2023-10-05 15:42] LABS: Partial Thromboplastin Time 29.2 SEC (26.0-36.4)
[2023-10-05] MEDS: Norepinephrine Bitartrate/D5W 8 MG/250 ML PLAST..BAG 5.84 MG IV (15:44)
[2023-10-05 15:45] LABS: Reflex Lactate? Lactic Acid Added
--- NOTE | 2023-10-05 15:49 | P.HPCC_ITS ---
History of Present Illness Date of Service: 10/05/23 Attending physician on admission: Malia Saunders Chief Complaint: Encephalopathy Patient is a 77 Y M with hypertension, diabetes, BPH and prior urinary tract infections, presenting from nursing facility with encephalopathy, found to be hypotensive, hypothermic, started on vasopressors; in ED, work-up with possible pneumonia, urinalysis appears traumatic, not floridly suggestive of urinary tract infection, and CT abdomen, pelvis suggsetive of proctocolitis; Review of Systems 2 Review of Systems: Yes all other systems are reviewed and are negative PMFSH Past Medical History Medical History BPH (benign prostatic hyperplasia) History of UTI Hypertension Neuropathy Diabetes Social History Social History Household Members: Unknown / Unable to assess Housing: House Unable to assess alcohol history related to: Unable to respond Alcohol intake: never Patient Tobacco Use Status: Never used Tobacco Tobacco use type: Cigarette Cigarette Packs Per Day: 1 Cigarettes Per Day: 9 Years Smoked: 50 Smoked in Last 30 Days: No e-Cigarette/Vaping Use: Never Used Second Hand Smoke Exposure: Yes Use of substances other than those prescribed or required for medical reasons: No Advance Directives: Yes Advance Directives on File: Yes Advance Directives Date on File: 07/24/23 service: Yes Current occupational status: retired Meds Allergies Allergy/AdvReac Type Severity Reaction Status Date / Time No Known Allergies Allergy Unverified 10/04/23 12:06 Active Medications: Current Medications Norepinephrine Bitartrate (Levophed) 8 mg in 250 mls @ 0 mls/hr IV .Q0M YULIANA; Protocol Last Admin: 10/05/23 15:44 Dose: 0.05 mcg/kg/min, 5.84 mls/hr Sodium Chloride (Ns) 1,000 mls @ 200 mls/hr IVCONT .Q5H YULIANA Stop: 10/05/23 20:29 Last Admin: 10/05/23 15:35 Dose: 200 mls/hr Home Medications Medication Instructions Recorded Confirmed Last Taken Type alfuzosin 10 mg tablet,extended 10 mg PO DAILY 02/23/23 10/05/23 Unknown History release 24 hr atorvastatin 40 mg tablet 40 mg PO DAILY 02/23/23 10/05/23 Unknown History latanoprost 0.005 % eye drops 1 drp ophthalmic (eye) BEDTIME 02/23/23 10/05/23 Unknown History pregabalin 150 mg capsule 150 mg PO BID 02/23/23 10/05/23 Unknown History sennosides 8.6 mg-docusate sodium 2 tab-cap PO BEDTIME 02/23/23 10/05/23 Unknown History 50 mg tablet (Senna-S) cholecalciferol (vitamin D3) 25 50 mcg PO DAILY 09/17/23 10/05/23 Unknown History mcg (1,000 unit) tablet diltiazem HCl 240 mg 240 mg PO DAILY 09/17/23 10/05/23 Unknown History tablet,extended release 24 hr (Cardizem LA) metformin 500 mg tablet,extended 500 mg PO DAILY 10/05/23 10/05/23 Unknown History release 24 hr Physical Exam 2 Vital Signs: Vital Signs: Last Vital Signs Temp 96.5 F L 10/05/23 14:25 Pulse 86 10/05/23 15:44 Resp 18 10/05/23 15:33 BP 83/32 L 10/05/23 15:44 Pulse Ox 95 10/05/23 15:33 O2 Del Method Room Air 10/05/23 15:33 BMI result Body Mass Index 20.9 Const: Other: somnolent, though easily arousable with minimal verbal stimulus Orientation/consciousness: oriented to person and oriented to place HEENT: Head: Yes normal to inspection, Yes normocephalic and Yes atraumatic Eyes: General: appearance normal, both eyes and all related structures Neck: Neck: Yes normal visual inspection, Yes no meningeal signs and Yes supple Chest: Chest palpation & inspection: normal inspection of the chest Resp: Other: no rales, rhonchi, wheezing Effort & Inspection: normal respiratory effort Cardio: Rate: regular rate Rhythm: regular rhythm GI: Inspection: Yes normal to inspection, No Abdominal wall edema and No distended Palpation (GI): Soft to palpation, not firm, nontender, no guarding and not rigid Skin: Other: appreciable well-healed incision R hip with some induration, though no fluctuance, purulence Neuro: General: oriented to person, oriented to place, moves all extremities and no meningeal signs Extrem: General: Yes normal to inspection, Yes capillary refill normal and Yes no clubbing, cyanosis or edema Psych: Appearance: grossly normal Results Labs 10/05/23 13:38 10/05/23 13:38 Labs: Laboratory Results - last 24 hr 10/05/23 10/05/23 10/05/23 13:38 13:39 13:45 MCV 97.6 MCH 33.0 MCHC 33.8 RDW 14.7 Plt Count 403 H D MPV 9.5 Immature Gran % (Auto) 1.2 H Neut % (Auto) 89.1 H Lymph % (Auto) 4.2 L [place] % (Auto) 5.2 Eos % (Auto) 0.0 Baso % (Auto) 0.3 Lymph # (Auto) 0.8 L [place] # (Auto) 1.0 Eos # (Auto) 0.0 Baso # (Auto) 0.1 Abs Immat Gran (auto) 0.24 H Absolute Neuts (auto) 17.4 H Absolute Nucleated RBC 0.000 Nucleated RBC % (auto) 0.0 PT 12.6 INR 1.0 APTT 29.2 VBG pH 7.38 VBG pCO2 42 VBG pO2 50 VBG HCO3 25 VBG O2 Saturation 80.0 VBG Base Excess 0.6 Anion Gap 13 Estim Creat Clear Calc 23.0 Estimated GFR 26 Random Glucose 275 H Lactic Acid 3.5 H* Calcium 8.3 L Total Bilirubin 0.5 Urine Color Urine Appearance Urine pH Ur Specific [place] Urine Protein Urine Glucose (UA) Urine Ketones Urine Blood Urine Nitrite Ur Leukocyte Esterase Influenza Type A (PCR) NEGATIVE Influenza Type B (PCR) NEGATIVE RSV RNA Qual (PCR) NEGATIVE SARS-CoV-2 RNA (RT-PCR) NEGATIVE 10/05/23 15:19 MCV MCH MCHC RDW Plt Count MPV Immature Gran % (Auto) Neut % (Auto) Lymph % (Auto) [place] % (Auto) Eos % (Auto) Baso % (Auto) Lymph # (Auto) [place] # (Auto) Eos # (Auto) Baso # (Auto) Abs Immat Gran (auto) Absolute Neuts (auto) Absolute Nucleated RBC Nucleated RBC % (auto) PT INR APTT VBG pH VBG pCO2 VBG pO2 VBG HCO3 VBG O2 Saturation VBG Base Excess Anion Gap Estim Creat Clear Calc Estimated GFR Random Glucose Lactic Acid Calcium Total Bilirubin Urine Color Dark Yellow Urine Appearance Cloudy Urine pH 5.0 Ur Specific [place] 1.020 Urine Protein 30 (1+) H Urine Glucose (UA) Negative Urine Ketones Trace Urine Blood Moderate (2+) H Urine Nitrite Negative Ur Leukocyte Esterase Trace H Influenza Type A (PCR) Influenza Type B (PCR) RSV RNA Qual (PCR) SARS-CoV-2 RNA (RT-PCR) Imaging Radiologist's Impressions: Impressions Chest X-Ray 10/05/23 14:33 IMPRESSION: Question small infiltrate at the left lung base. Right jugular line projects over SVC. No pneumothorax. Assessment and Plan (1) Septic shock: Status: Acute (2) Acute renal insufficiency: Status: Acute (3) Proctocolitis: Status: Acute Plan Patient is a 77 Y M with hypertension, diabetes, BPH c/b prior urinary tract infections p/w encephalopathy, found to be hypotensive, hypothermic, c/f septic shock N: encephalopathy, now alert, oriented x2 CV: shock, c/f septic shock, s/p 4 L IVF in ED, now on norepinephrine, vasopressin, and stress-dose steroids R: possible pneumonia, though satting well on room air GI: CT abdomen, pelvis demonstrating protocolitis : BPH, c/b prior urinary tract infection, urinalysis not floridly suggestive of urinary tract infection H: leukocytosis, likely d/t infection; otherwise no acute issues ID: c/f septic shock, empiric vancomycin, cefepime, and metronidazole E: diabetes, insulin sliding scale P: no acute issues Total time managing care of this patient today: 90 minutes.
[2023-10-05 15:59] LABS: Bacteria Urine None Seen (None Seen); Hyaline Casts Urine >20 /LPF (0-2); Other Crystals Urine Present; RBC Urine >20 /HPF (0-2); WBC Urine 0-5 /HPF (0-5)
[2023-10-05 16:15] LABS: ~Lactic Acid-LAB USE ONLY 4.1 mmol/L (0.5-2.0)
[2023-10-05 16:33] LABS: TSH reflex Free T4 0.29 uIU/mL (0.32-4.0)
--- NOTE | 2023-10-05 16:40 | PC.NURSE ---
Pt transported to CT by nursing, pt tolerated well, noepi remains to get increased q 5 minutes per order to monitor MAP/BP. Pt family continues at bedside, emotional support provided throughout. When pt brought back to room bairhugger placed back on patient. All other vitals stable at this time
[2023-10-05] MEDS: Insulin Lispro 100 UNIT/ML 3 ML VIAL SUBCUT ×2 (16:44→18:47)
--- NOTE | 2023-10-05 16:56 | PHA.MEDREC ---
Pharmacy Consult ? Medication Reconciliation Pharmacy has completed the medication reconciliation. Patient with list from [facility]
[2023-10-05 17:17] LABS: Free T4 (Free Thyroxine) 1.03 ng/dL (0.71-1.85)
[2023-10-05] MEDS: Vasopressin 20 UNIT/100 ML INFUS..BTL 12 UNIT IV (17:51)
[2023-10-05 17:52] LABS: Reflex Lactate? 2 Y
--- NOTE | 2023-10-05 17:55 | PC.NURSE ---
Patient transferred to ICU via nursing, hand off given in ICU, family in waiting room for ICU awaiting assessment
[2023-10-05] MEDS: vancomycin HCL 1,500 MG in 0.9 % Sodium Chloride 500 ML 333.33 MG IV (18:20)
[2023-10-05] MEDS: Hydrocortisone Sod Succ/PF 100 MG VIAL IVPUSH (18:28)
[2023-10-05] MEDS: Heparin Sodium,Porcine 5,000 UNIT/ML VIAL 5000 UNIT SUBCUT (18:28)
[2023-10-05] MEDS: cefEPime HCl 1 GM in 0.9 % Sodium Chloride 50 ML IV (18:37)
[2023-10-05 18:39] LABS: Glucose, Whole Blood 143 mg/dL (60-115)
[2023-10-05 18:41] LABS: Basophils Absolute Auto 0.1 X10*3/uL (0.0-0.2); Basophils Percent Auto 0.4 % (0-2); Hematocrit 24.6 % (42.0-52.0); Hemoglobin 8.3 g/dl (14.0-18.0); Imm Gran Abs Auto 0.24 X10*3/uL (0.00-0.03); Lymphocytes Absolute Auto 1.4 X10*3/uL (1.2-4.9); Lymphocytes Percent Auto 6.2 % (20-40); MANUAL DIFF FLAG SCAN; Mean Corpuscular HGB Conc 33.7 g/dl (31.0-36.0); Mean Corpuscular Hemoglobin 33.1 pg (27.0-33.0); Mean Platelet Volume 9.2 fL (9.4-12.4); Monocytes Absolute Auto 1.8 X10*3/uL (0.1-1.2); Monocytes Percent Auto 7.9 % (2-11); Neutrophils Absolute Auto 19.3 x10*3/uL (2.0-8.3); Neutrophils Percent Auto 84.5 % (45-73); Platelet Count 366 X10*3/uL (160-400); Red Blood Count 2.51 X10*6/uL (4.60-5.80); SCAN SMEAR FLAG 1; White Blood Count 22.9 X10*3/uL (4.8-10.8)
[2023-10-05] MEDS: metroNIDAZOLE/NS 500 MG/100 ML PIGGYBACK 100 MG IV (18:46)
[2023-10-05 18:57] LABS: Anion Gap 9 (12-20); Blood Urea Nitrogen 32 mg/dL (9-16); Calcium 7.3 mg/dL (8.4-10.2); Carbon Dioxide 22 mmol/L (22-29); Chloride 112 mmol/L (96-108); Creatinine Clr Calc Pharmacy 35.7; Estimated Glomerular Filt Rate 44; Glucose Random 158 mg/dL (60-115); Potassium 3.8 mmol/L (3.3-5.1); Sodium 139 mmol/L (135-145); ~Lactic Acid-LAB USE ONLY 2.4 mmol/L (0.5-2.0)
[2023-10-05 19:07] LABS: SLIDE REVIEW VERIFIED
--- NOTE | 2023-10-05 19:07 | HO.SKINPHOTO ---
Location: coccyx Category: Stage: Length: Width: Depth: cm Location: L heel Category: Stage: Length: Width: Depth: cm Location: R heel Category: Stage: Length: Width: Depth: cm Location: Category: Stage: Length: Width: Depth: cm Location: Category: Stage: Length: Width: Depth: cm Location: Category: Stage: Length: Width: Depth: cm
[2023-10-05 20:05] LABS: Lactic Acid 1.6 mmol/L (0.5-2.0)
[2023-10-05] MEDS: Lactated Ringers 1,000 ML 200 ML IVCONT (20:23)
[2023-10-05] MEDS: Norepinephrine Bitartrate/D5W 8 MG/250 ML PLAST..BAG 37.38 MG IV (22:42)
[2023-10-06] VITALS (44 sets, daily range): BP systolic 115–157; BP diastolic 37–65; PULSE 56–79; RESP 16–34; TEMP 36.6–37.7; O2SAT 93–96; BMI 23.8
[2023-10-06 00:06] LABS: Glucose, Whole Blood 257 mg/dL (60-115)
[2023-10-06] MEDS: Hydrocortisone Sod Succ/PF 100 MG VIAL 50 MG IVPUSH ×4 (00:12→23:42)
[2023-10-06] MEDS: Insulin Lispro 100 UNIT/ML 3 ML VIAL SUBCUT ×3 (00:13→11:58)
[2023-10-06] MEDS: Vasopressin 20 UNIT/100 ML INFUS..BTL 12 UNIT IV ×3 (00:13→16:18)
[2023-10-06] MEDS: Heparin Sodium,Porcine 5,000 UNIT/ML VIAL 5000 UNIT SUBCUT ×2 (02:09→10:23)
[2023-10-06] MEDS: metroNIDAZOLE/NS 500 MG/100 ML PIGGYBACK 100 MG IV ×3 (02:09→17:51)
[2023-10-06] MEDS: Norepinephrine Bitartrate/D5W 8 MG/250 ML PLAST..BAG 32.71 MG IV (04:55)
[2023-10-06] MEDS: cefEPime HCl 1 GM in 0.9 % Sodium Chloride 50 ML IV ×2 (05:28→17:51)
[2023-10-06 05:30] LABS: VBG HCO3 22 mmol/L (22-26); VBG pCO2 33 mmHg; VBG pH 7.44 (7.32-7.43); VBG pO2 43 mmHg
[2023-10-06 05:45] LABS: Basophils Absolute Auto 0.1 X10*3/uL (0.0-0.2); Basophils Percent Auto 0.3 % (0-2); Eosinophils Absolute Auto 0.1 X10*3/uL (0.0-0.4); Eosinophils Percent Auto 0.4 % (0-4); Hematocrit 25.5 % (42.0-52.0); Hemoglobin 8.5 g/dl (14.0-18.0); Imm Gran Abs Auto 0.22 X10*3/uL (0.00-0.03); Lymphocytes Absolute Auto 0.9 X10*3/uL (1.2-4.9); Lymphocytes Percent Auto 3.8 % (20-40); MANUAL DIFF FLAG SCAN; Mean Corpuscular HGB Conc 33.3 g/dl (31.0-36.0); Mean Corpuscular Hemoglobin 32.8 pg (27.0-33.0); Mean Corpuscular Volume 98.5 fL (80.0-98.0); Mean Platelet Volume 9.6 fL (9.4-12.4); Monocytes Absolute Auto 1.1 X10*3/uL (0.1-1.2); Monocytes Percent Auto 4.9 % (2-11); Neutrophils Absolute Auto 20.6 x10*3/uL (2.0-8.3); Neutrophils Percent Auto 89.6 % (45-73); Platelet Count 390 X10*3/uL (160-400); Red Blood Count 2.59 X10*6/uL (4.60-5.80); Red Cell Distribution Width 14.8 % (11.0-16.0); SCAN SMEAR FLAG 1
[2023-10-06 05:54] LABS: SLIDE REVIEW VERIFIED
[2023-10-06 05:59] LABS: Albumin Level 2.9 g/dL (3.5-5.0); Anion Gap 11 (12-20); Blood Urea Nitrogen 24 mg/dL (9-16); Calcium 7.7 mg/dL (8.4-10.2); Carbon Dioxide 22 mmol/L (22-29); Chloride 108 mmol/L (96-108); Creatinine Clr Calc Pharmacy 54.2; Estimated Glomerular Filt Rate > 60; Glucose Random 236 mg/dL (60-115); Magnesium 2.2 mg/dL (1.6-2.6); Phosphorus 2.7 mg/dL (2.7-4.5); Potassium 3.9 mmol/L (3.3-5.1); Sodium 137 mmol/L (135-145)
[2023-10-06] MEDS: Albumin Human 25 % 100 ML IV ×3 (07:21→19:35)
--- NOTE | 2023-10-06 08:08 | P.PNCC_ITS ---
Subjective Subjective Date of Service: 10/06/23 Interval History: no significant overnight events; interval improvement of vasopressor requirement Critical Care Time (minutes): 90 Physical Exam 2 Vital Signs: Vital Signs: Last Vital Signs Temp 97.8 F 10/06/23 04:00 Pulse 58 10/06/23 07:30 Resp 17 10/06/23 07:00 BP 147/47 H 10/06/23 07:30 Pulse Ox 94 10/06/23 07:00 O2 Del Method Room Air 10/06/23 07:00 BMI result Body Mass Index 23.8 Const: General: cooperative, comfortable, no acute distress and well developed HEENT: Head: Yes normal to inspection, Yes normocephalic and Yes atraumatic Eyes: General: appearance normal, both eyes and all related structures Neck: Neck: Yes normal visual inspection, Yes full ROM and Yes supple Chest: Chest palpation & inspection: normal inspection of the chest Objective Data Labs 10/06/23 05:20 10/06/23 05:20 Labs: Laboratory Results - last 24 hr 10/05/23 10/05/23 10/05/23 13:38 13:39 13:45 WBC 19.6 H RBC 2.91 L Hgb 9.6 L Hct 28.4 L MCV 97.6 MCH 33.0 MCHC 33.8 RDW 14.7 Plt Count 403 H D MPV 9.5 Immature Gran % (Auto) 1.2 H Neut % (Auto) 89.1 H Lymph % (Auto) 4.2 L [place] % (Auto) 5.2 Eos % (Auto) 0.0 Baso % (Auto) 0.3 Lymph # (Auto) 0.8 L [place] # (Auto) 1.0 Eos # (Auto) 0.0 Baso # (Auto) 0.1 Abs Immat Gran (auto) 0.24 H Absolute Neuts (auto) 17.4 H Absolute Nucleated RBC 0.000 Nucleated RBC % (auto) 0.0 Smear Tech's Comments PT 12.6 INR 1.0 APTT 29.2 VBG pH 7.38 VBG pCO2 42 VBG pO2 50 VBG HCO3 25 VBG O2 Saturation 80.0 VBG Base Excess 0.6 Sodium 136 Potassium 4.9 Chloride 102 Carbon Dioxide 26 Anion Gap 13 BUN 40 H Creatinine 2.40 H Estim Creat Clear Calc 23.0 Estimated GFR 26 POC Glucose Random Glucose 275 H Lactic Acid 3.5 H* Lactic Acid F/U @ 2Hr Lactic Acid F/U @ 4Hr Calcium 8.3 L Phosphorus Magnesium Total Bilirubin 0.5 Albumin TSH Free T4 Urine Color Urine Appearance Urine pH Ur Specific [place] Urine Protein Urine Glucose (UA) Urine Ketones Urine Blood Urine Nitrite Ur Leukocyte Esterase Urine RBC Urine WBC Ur Squamous Epith Cells Other Crystals Urine Bacteria Hyaline Casts Influenza Type A (PCR) NEGATIVE Influenza Type B (PCR) NEGATIVE RSV RNA Qual (PCR) NEGATIVE SARS-CoV-2 RNA (RT-PCR) NEGATIVE 10/05/23 10/05/23 10/05/23 15:19 15:49 18:33 WBC 22.9 H RBC 2.51 L Hgb 8.3 L Hct 24.6 L MCV 98.0 MCH 33.1 H MCHC 33.7 RDW 15.0 Plt Count 366 MPV 9.2 L Immature Gran % (Auto) 1.0 H Neut % (Auto) 84.5 H Lymph % (Auto) 6.2 L [place] % (Auto) 7.9 Eos % (Auto) 0.0 Baso % (Auto) 0.4 Lymph # (Auto) 1.4 [place] # (Auto) 1.8 H Eos # (Auto) 0.0 Baso # (Auto) 0.1 Abs Immat Gran (auto) 0.24 H Absolute Neuts (auto) 19.3 H Absolute Nucleated RBC 0.000 Nucleated RBC % (auto) 0.0 Smear Tech's Comments VERIFIED PT INR APTT VBG pH VBG pCO2 VBG pO2 VBG HCO3 VBG O2 Saturation VBG Base Excess Sodium 139 Potassium 3.8 D Chloride 112 H Carbon Dioxide 22 Anion Gap 9 L BUN 32 H Creatinine 1.55 H Estim Creat Clear Calc 35.7 Estimated GFR 44 POC Glucose Random Glucose 158 H Lactic Acid Lactic Acid F/U @ 2Hr 4.1 H* Lactic Acid F/U @ 4Hr 2.4 H* Calcium 7.3 L D Phosphorus Magnesium Total Bilirubin Albumin TSH 0.29 L Free T4 1.03 Urine Color Dark Yellow Urine Appearance Cloudy Urine pH 5.0 Ur Specific [place] 1.020 Urine Protein 30 (1+) H Urine Glucose (UA) Negative Urine Ketones Trace Urine Blood Moderate (2+) H Urine Nitrite Negative Ur Leukocyte Esterase Trace H Urine RBC >20 H Urine WBC 0-5 Ur Squamous Epith Cells 3-5 Other Crystals Present Urine Bacteria None Seen Hyaline Casts >20 Influenza Type A (PCR) Influenza Type B (PCR) RSV RNA Qual (PCR) SARS-CoV-2 RNA (RT-PCR) 10/05/23 10/05/23 10/06/23 18:36 19:49 00:03 WBC RBC Hgb Hct MCV MCH MCHC RDW Plt Count MPV Immature Gran % (Auto) Neut % (Auto) Lymph % (Auto) [place] % (Auto) Eos % (Auto) Baso % (Auto) Lymph # (Auto) [place] # (Auto) Eos # (Auto) Baso # (Auto) Abs Immat Gran (auto) Absolute Neuts (auto) Absolute Nucleated RBC Nucleated RBC % (auto) Smear Tech's Comments PT INR APTT VBG pH VBG pCO2 VBG pO2 VBG HCO3 VBG O2 Saturation VBG Base Excess Sodium Potassium Chloride Carbon Dioxide Anion Gap BUN Creatinine Estim Creat Clear Calc Estimated GFR POC Glucose 143 H 257 H Random Glucose Lactic Acid 1.6 Lactic Acid F/U @ 2Hr Lactic Acid F/U @ 4Hr Calcium Phosphorus Magnesium Total Bilirubin Albumin TSH Free T4 Urine Color Urine Appearance Urine pH Ur Specific [place] Urine Protein Urine Glucose (UA) Urine Ketones Urine Blood Urine Nitrite Ur Leukocyte Esterase Urine RBC Urine WBC Ur Squamous Epith Cells Other Crystals Urine Bacteria Hyaline Casts Influenza Type A (PCR) Influenza Type B (PCR) RSV RNA Qual (PCR) SARS-CoV-2 RNA (RT-PCR) 10/06/23 10/06/23 05:20 05:24 WBC 23.0 H RBC 2.59 L Hgb 8.5 L Hct 25.5 L MCV 98.5 H MCH 32.8 MCHC 33.3 RDW 14.8 Plt Count 390 MPV 9.6 Immature Gran % (Auto) 1.0 H Neut % (Auto) 89.6 H Lymph % (Auto) 3.8 L [place] % (Auto) 4.9 Eos % (Auto) 0.4 Baso % (Auto) 0.3 Lymph # (Auto) 0.9 L [place] # (Auto) 1.1 Eos # (Auto) 0.1 Baso # (Auto) 0.1 Abs Immat Gran (auto) 0.22 H Absolute Neuts (auto) 20.6 H Absolute Nucleated RBC 0.000 Nucleated RBC % (auto) 0.0 Smear Tech's Comments VERIFIED PT INR APTT VBG pH 7.44 H VBG pCO2 33 VBG pO2 43 VBG HCO3 22 VBG O2 Saturation 74.0 VBG Base Excess -1.0 Sodium 137 Potassium 3.9 Chloride 108 Carbon Dioxide 22 Anion Gap 11 L BUN 24 H Creatinine 1.02 Estim Creat Clear Calc 54.2 Estimated GFR > 60 POC Glucose Random Glucose 236 H Lactic Acid Lactic Acid F/U @ 2Hr Lactic Acid F/U @ 4Hr Calcium 7.7 L Phosphorus 2.7 Magnesium 2.2 Total Bilirubin Albumin 2.9 L TSH Free T4 Urine Color Urine Appearance Urine pH Ur Specific [place] Urine Protein Urine Glucose (UA) Urine Ketones Urine Blood Urine Nitrite Ur Leukocyte Esterase Urine RBC Urine WBC Ur Squamous Epith Cells Other Crystals Urine Bacteria Hyaline Casts Influenza Type A (PCR) Influenza Type B (PCR) RSV RNA Qual (PCR) SARS-CoV-2 RNA (RT-PCR) Microbiology Microbiology Results: Microbiology 10/05/23 13:38 Blood - Venous Blood Culture - Preliminary Progress Note: A&P Assessment and plan (1) Proctocolitis: Status: Acute (2) Septic shock: Status: Acute Plan Patient is a 77 Y M with hypertension, diabetes, BPH c/b prior urinary tract infections p/w encephalopathy, found to be hypotensive, hypothermic, c/f septic shock N: encephalopathy, now alert, oriented x2 CV: shock, c/f septic shock, s/p 4 L IVF in ED, now on norepinephrine, vasopressin, and stress-dose steroids, with some improvement R: possible pneumonia, though satting well on room air GI: CT abdomen, pelvis demonstrating protocolitis; NPO, ideally on less vasopressor, and possibly advance diet : BPH, c/b prior urinary tract infection, urinalysis not floridly suggestive of urinary tract infection H: leukocytosis, likely d/t infection; otherwise no acute issues ID: c/f septic shock, empiric vancomycin, cefepime, and metronidazole E: diabetes, insulin sliding scale P: no acute issues Quality Stroke Does the patient have a stroke diagnosis?: No VTE Prior VTE?: No VTE Risk Level:: Medical - moderate - high VTE Device Contraindication: N/A - Device Ordered VTE Drug Contraindication: N/A - Med Ordered
[2023-10-06] MEDS: Calcium Chloride 1 GM/10 ML SYRINGE IVPUSH (08:23)
[2023-10-06 09:24] LABS: Magnesium 2.2 mg/dL (1.6-2.6); Phosphorus 2.7 mg/dL (2.7-4.5)
--- NOTE | 2023-10-06 09:51 | W.MHC.ACPN ---
Advanced Care Planning Note Advanced Care Planning Note Discussed with: family member(s) Time spent (in minutes): 30 Narrative: Of note, the date of service of this note is 10/05/2023. Mr. Alvarado's sister and healthcare proxy, Ayesha, and Mr. Alvarado's neyied-ed-sht were present at bedside. I offered updates and clarifications. We discussed Mr. Alvarado's code status. Ayesha stated Mr. Alvarado would not want anything invasive, which includes CPR, intubation, BiPAP and CPAP, and hemodialysis. Otherwise, it was discussed we would continue with Mr. Alvarado's current care. Problems Discussed (1) Proctocolitis: (2) Septic shock:
[2023-10-06 11:56] LABS: Glucose, Whole Blood 217 mg/dL (60-115)
--- NOTE | 2023-10-06 12:02 | HE.PHANOTE ---
RE VANCO DOSING DUE TO IMPROVEMENT IN RENAL FUNCTION TODAY, INSIGHT IS SUGGESTING A DIFFERENT REGIMEN FOR THIS PATIENT. CHANGE ORDER FROM 500 Q24 TO 500 Q12 AND OBTAIN LEVEL 10/07 @1100.
--- NOTE | 2023-10-06 12:41 | MHC.CM.PN ---
EMR REVIEWED, CM MET W/PT AND SISTER/HCP SKYLA AND PT'S BROTHER, PT'S SISTER ANSWERED MOST QUESTIONS D/T DEMENTIA, PT IS IN LTC AT [facility], SKYLA REPORTS BEFORE PT BROKE HIS RIGHT HIP A M,ONTH AGO HE WAS WALKING AROUND W/A WALKER AND USING A WC HOEV ER NOT SINCE, PER SKYLA PLAN WILL BE TO RETURN TO [facility] WHEN MEDICALLY CLEARED. HCP/MOLST ON FILE FROM PREVIOUS ADMISSION.
[2023-10-06] MEDS: vancomycin HCL 500 MG in 0.9 % Sodium Chloride 100 ML 110 MG IV (13:10)
[2023-10-06 17:37] LABS: Glucose, Whole Blood 187 mg/dL (60-115)
[2023-10-06] MEDS: Norepinephrine Bitartrate/D5W 8 MG/250 ML PLAST..BAG 7.01 MG IV (17:51)
[2023-10-06 23:30] LABS: Glucose, Whole Blood 157 mg/dL (60-115)
[2023-10-07] VITALS (30 sets, daily range): BP systolic 92–144; BP diastolic 37–74; PULSE 63–92; RESP 22–39; TEMP 36.6–37; O2SAT 91–95; BMI 22.0
[2023-10-07] MEDS: vancomycin HCL 500 MG in 0.9 % Sodium Chloride 100 ML 110 MG IV (01:10)
[2023-10-07] MEDS: Heparin Sodium,Porcine 5,000 UNIT/ML VIAL 5000 UNIT SUBCUT (01:46)
[2023-10-07] MEDS: Albumin Human 25 % 100 ML IV (01:53)
[2023-10-07] MEDS: metroNIDAZOLE/NS 500 MG/100 ML PIGGYBACK 100 MG IV ×3 (02:23→18:24)
[2023-10-07] MEDS: cefEPime HCl 1 GM in 0.9 % Sodium Chloride 50 ML IV ×2 (05:15→18:24)
[2023-10-07] MEDS: Hydrocortisone Sod Succ/PF 100 MG VIAL 50 MG IVPUSH (05:16)
[2023-10-07 05:32] LABS: VBG Base Excess 4.8 mmol/L; VBG HCO3 27 mmol/L (22-26); VBG pCO2 33 mmHg; VBG pH 7.52 (7.32-7.43); VBG pO2 42 mmHg
[2023-10-07 05:34] LABS: Glucose, Whole Blood 165 mg/dL (60-115)
[2023-10-07 05:35] LABS: Venous Blood Gas Refer to POC result
[2023-10-07 05:47] LABS: MANUAL DIFF FLAG NO
[2023-10-07 05:54] LABS: Basophils Absolute Auto 0.1 X10*3/uL (0.0-0.2); Basophils Percent Auto 0.4 % (0-2); Eosinophils Absolute Auto 0.1 X10*3/uL (0.0-0.4); Eosinophils Percent Auto 0.6 % (0-4); Hematocrit 21.9 % (42.0-52.0); Hemoglobin 7.2 g/dl (14.0-18.0); Imm Gran Pct Auto 0.7 % (0.0-0.4); Lymphocytes Absolute Auto 0.7 X10*3/uL (1.2-4.9); Lymphocytes Percent Auto 4.8 % (20-40); Mean Corpuscular HGB Conc 32.9 g/dl (31.0-36.0); Mean Corpuscular Hemoglobin 32.3 pg (27.0-33.0); Mean Corpuscular Volume 98.2 fL (80.0-98.0); Mean Platelet Volume 9.8 fL (9.4-12.4); Monocytes Absolute Auto 0.8 X10*3/uL (0.1-1.2); Monocytes Percent Auto 5.5 % (2-11); Neutrophils Absolute Auto 12.4 x10*3/uL (2.0-8.3); Platelet Count 315 X10*3/uL (160-400); Red Blood Count 2.23 X10*6/uL (4.60-5.80); Red Cell Distribution Width 14.6 % (11.0-16.0); White Blood Count 14.1 X10*3/uL (4.8-10.8)
[2023-10-07 06:10] LABS: Anion Gap 11 (12-20); Blood Urea Nitrogen 21 mg/dL (9-16); Calcium 8.5 mg/dL (8.4-10.2); Carbon Dioxide 26 mmol/L (22-29); Chloride 104 mmol/L (96-108); Creatinine Clr Calc Pharmacy 74.6; Estimated Glomerular Filt Rate > 60; Glucose Random 170 mg/dL (60-115); Magnesium 2.2 mg/dL (1.6-2.6); Phosphorus 1.8 mg/dL (2.7-4.5); Potassium 3.2 mmol/L (3.3-5.1); Sodium 138 mmol/L (135-145)
--- NOTE | 2023-10-07 06:32 | PC.NURSE ---
Pt stayed awake all night.Gets agitated at times and refusing care. SR on monitor with 1AVB. Weaned from VAso. MAP maintaining above 65. Levo on 0.02. tried to wean from Levo but mAP dropped to 60's. Kept NPO. Incontinent with stoolx1. stool is mucousy without blood. Srinivasan remains in place. Urine output is slightly decreasing. Glucose monitored Q6. No insulin given, pt is NPO. Central line dressing changed this shift. Labs drawn this morning. There is a drop in H+H compared from previous results. Potassium and Phos are also low but not critical. Will inform the incoming RN.
[2023-10-07] MEDS: Potassium Phosphate/NS 15 MMOL/250 ML PLAST..BAG 62.5 MMOL IV (07:55)
--- NOTE | 2023-10-07 08:46 | P.PNCC_ITS ---
Subjective Subjective Date of Service: 10/07/23 Interval History: no significant overnight events Critical Care Time (minutes): 60 Physical Exam 2 Vital Signs: Vital Signs: Last Vital Signs Temp 98.1 F 10/07/23 05:52 Pulse 72 10/07/23 08:00 Resp 27 H 10/07/23 08:00 BP 144/45 H 10/07/23 08:00 Pulse Ox 91 L 10/07/23 08:00 O2 Del Method Room Air 10/07/23 08:00 BMI result Body Mass Index 22.0 Const: General: cooperative, healthy appearing, comfortable, no acute distress, well developed, alert, awake and Physically active O rientation/consciousness: oriented to person HEENT: Head: Yes normal to inspection, Yes normocephalic and Yes atraumatic Eyes: General: appearance normal, both eyes and all related structures Neck: Neck: Yes normal visual inspection, Yes full ROM, Yes no meningeal signs and Yes supple Chest: Chest palpation & inspection: normal inspection of the chest Resp: Other: no rales, rhonchi, wheezing Effort & Inspection: normal respiratory effort Cardio: Rate: regular rate Rhythm: regular rhythm GI: Inspection: Yes normal to inspection, No Abdominal wall edema and No distended Palpation (GI): Soft to palpation, not firm, nontender, no guarding and not rigid Skin: General skin exam: no rashes or lesions noted Neuro: General: oriented to person and no meningeal signs Extrem: General: Yes normal to inspection, Yes capillary refill normal and Yes no clubbing, cyanosis or edema Psych: Appearance: grossly normal Objective Data Labs 10/07/23 05:30 10/07/23 05:30 Labs: Laboratory Results - last 24 hr 10/06/23 10/06/23 10/06/23 09:03 11:53 17:34 WBC RBC Hgb Hct MCV MCH MCHC RDW Plt Count MPV Immature Gran % (Auto) Neut % (Auto) Lymph % (Auto) [place] % (Auto) Eos % (Auto) Baso % (Auto) Lymph # (Auto) [place] # (Auto) Eos # (Auto) Baso # (Auto) Abs Immat Gran (auto) Absolute Neuts (auto) Absolute Nucleated RBC Nucleated RBC % (auto) VBG pH VBG pCO2 VBG pO2 VBG HCO3 VBG O2 Saturation VBG Base Excess Sodium Potassium Chloride Carbon Dioxide Anion Gap BUN Creatinine Estim Creat Clear Calc Estimated GFR POC Glucose 217 H 187 H Random Glucose Calcium Phosphorus 2.7 Magnesium 2.2 Blood Type B Positive Antibody Screen NEGATIVE 10/06/23 10/07/23 10/07/23 23:25 05:26 05:30 WBC 14.1 H RBC 2.23 L Hgb 7.2 L Hct 21.9 L MCV 98.2 H MCH 32.3 MCHC 32.9 RDW 14.6 Plt Count 315 MPV 9.8 Immature Gran % (Auto) 0.7 H Neut % (Auto) 88.0 H Lymph % (Auto) 4.8 L [place] % (Auto) 5.5 Eos % (Auto) 0.6 Baso % (Auto) 0.4 Lymph # (Auto) 0.7 L [place] # (Auto) 0.8 Eos # (Auto) 0.1 Baso # (Auto) 0.1 Abs Immat Gran (auto) 0.10 H Absolute Neuts (auto) 12.4 H Absolute Nucleated RBC 0.000 Nucleated RBC % (auto) 0.0 VBG pH 7.52 H VBG pCO2 33 VBG pO2 42 VBG HCO3 27 H VBG O2 Saturation 74.0 VBG Base Excess 4.8 Sodium 138 Potassium 3.2 L Chloride 104 Carbon Dioxide 26 Anion Gap 11 L BUN 21 H Creatinine 0.78 Estim Creat Clear Calc 74.6 Estimated GFR > 60 POC Glucose 157 H 165 H Random Glucose 170 H Calcium 8.5 D Phosphorus 1.8 L Magnesium 2.2 Blood Type Antibody Screen Microbiology Microbiology Results: Microbiology 10/05/23 13:38 Blood - Venous Blood Culture - Preliminary Prelim: GPC Gram Stain only 10/05/23 13:38 Blood - Venous Blood Culture - Preliminary No growth after 24 hours. Progress Note: A&P Assessment and plan (1) Proctocolitis: Status: Acute (2) Septic shock: Status: Acute Plan Patient is a 77 Y M with hypertension, diabetes, BPH c/b prior urinary tract infections p/w encephalopathy, found to be hypotensive, hypothermic, c/f septic shock N: encephalopathy, now alert, oriented x2 CV: septic shock, resolved R: no acute issues GI: CT abdomen, pelvis demonstrating protocolitis; advance diet as tolerated : BPH, c/b prior urinary tract infection, urinalysis not floridly suggestive of urinary tract infection H: leukocytosis, likely d/t infection; otherwise no acute issues; anemia, possibly dilutional, to continue to montior closely ID: c/f septic shock, empiric vancomycin, cefepime, and metronidazole E: diabetes, insulin sliding scale P: no acute issues Quality Stroke Does the patient have a stroke diagnosis?: No VTE Prior VTE?: No VTE Risk Level:: Medical - moderate - high VTE Device Contraindication: N/A - Device Ordered VTE Drug Contraindication: N/A - Med Ordered
[2023-10-07 11:20] LABS: Glucose, Whole Blood 306 mg/dL (60-115)
[2023-10-07 11:31] LABS: Vancomycin Random 6.2 mcg/mL (15-20)
--- NOTE | 2023-10-07 11:41 | HE.PHANOTE ---
RE VANCO DOSING IMPROVING RENAL FUNCTION BUT CLEARING VANCO FASTER THAN ORIGINALLY EXPECTED DUE TO THIS. INCREASING DOSE TO 1000 MG Q12 AND RECHECK LEVEL 10/08 @1100. PROJECTED AUC 503 WITH TROUGH 14.6.
[2023-10-07] MEDS: Insulin Lispro 100 UNIT/ML 3 ML VIAL SUBCUT ×2 (11:42→16:57)
[2023-10-07] MEDS: vancomycin HCL 1,000 MG in 0.9 % Sodium Chloride 250 ML 270 MG IV (12:31)
[2023-10-07 16:55] LABS: Glucose, Whole Blood 173 mg/dL (60-115)
[2023-10-07 20:59] LABS: Glucose, Whole Blood 140 mg/dL (60-115)
[2023-10-08] VITALS (12 sets, daily range): BP systolic 92–153; BP diastolic 45–70; PULSE 53–78; RESP 16–27; TEMP 36.1–36.7; O2SAT 92–96; BMI 22.0
[2023-10-08] MEDS: vancomycin HCL 1,000 MG in 0.9 % Sodium Chloride 250 ML 270 MG IV ×2 (01:12→13:25)
[2023-10-08] MEDS: Heparin Sodium,Porcine 5,000 UNIT/ML VIAL 5000 UNIT SUBCUT ×3 (01:16→17:17)
[2023-10-08] MEDS: metroNIDAZOLE/NS 500 MG/100 ML PIGGYBACK 100 MG IV ×2 (02:20→09:44)
--- NOTE | 2023-10-08 05:27 | PM.EVENT ---
Event Note Date of Service: 10/08/23 Event Note: Signed out by Dr. Saunders for downgrade to medicine floor. Patient presented on 10/05 with septic shock due to proctocolitis. Currently off pressors and on empiric IV antibiotics. Time Spent With Patient Time: Total time managing care of this patient today ____ minutes.
[2023-10-08 05:51] LABS: MANUAL DIFF FLAG NO
[2023-10-08 05:59] LABS: Basophils Percent Auto 0.4 % (0-2); Eosinophils Percent Auto 0.1 % (0-4); Hematocrit 23.2 % (42.0-52.0); Hemoglobin 7.7 g/dl (14.0-18.0); Imm Gran Abs Auto 0.06 X10*3/uL (0.00-0.03); Imm Gran Pct Auto 0.6 % (0.0-0.4); Lymphocytes Absolute Auto 1.2 X10*3/uL (1.2-4.9); Mean Corpuscular HGB Conc 33.2 g/dl (31.0-36.0); Mean Corpuscular Hemoglobin 32.5 pg (27.0-33.0); Mean Corpuscular Volume 97.9 fL (80.0-98.0); Mean Platelet Volume 9.8 fL (9.4-12.4); Monocytes Absolute Auto 0.7 X10*3/uL (0.1-1.2); Monocytes Percent Auto 7.2 % (2-11); Neutrophils Absolute Auto 7.8 x10*3/uL (2.0-8.3); Neutrophils Percent Auto 79.7 % (45-73); Platelet Count 316 X10*3/uL (160-400); Red Blood Count 2.37 X10*6/uL (4.60-5.80); Red Cell Distribution Width 14.8 % (11.0-16.0); White Blood Count 9.7 X10*3/uL (4.8-10.8)
[2023-10-08 06:22] LABS: Anion Gap 11 (12-20); Blood Urea Nitrogen 22 mg/dL (9-16); Calcium 8.3 mg/dL (8.4-10.2); Carbon Dioxide 26 mmol/L (22-29); Chloride 107 mmol/L (96-108); Creatinine Clr Calc Pharmacy 73.6; Estimated Glomerular Filt Rate > 60; Glucose Random 161 mg/dL (60-115); Potassium 3.1 mmol/L (3.3-5.1); Sodium 141 mmol/L (135-145)
[2023-10-08] MEDS: cefEPime HCl 1 GM in 0.9 % Sodium Chloride 50 ML IV (06:27)
[2023-10-08 07:55] LABS: Magnesium 2.1 mg/dL (1.6-2.6)
[2023-10-08 07:58] LABS: Glucose, Whole Blood 179 mg/dL (60-115)
[2023-10-08] MEDS: Potassium Chloride Packet 20 MEQ PACKET 40 MEQ PO ×2 (09:43→17:16)
[2023-10-08] MEDS: Insulin Lispro 100 UNIT/ML 3 ML VIAL SUBCUT ×3 (09:44→17:18)
--- NOTE | 2023-10-08 10:21 | MHC.CM.PN ---
Per ROUNDS discussion, Patient was transferred from ICU this morning and is not yet medically cleared for dc. Returning to LTC @ [facility] is the goal and CM will continue to follow.
[2023-10-08 11:07] LABS: Vancomycin Random 14.9 mcg/mL (15-20)
--- NOTE | 2023-10-08 11:38 | HO.PM.IMPN ---
Subjective Subjective Date of Service: 10/08/23 Interval History: Transfer out of icu for proctocolitis, hypotension. Doing better, no new issues, denies pain Physical Exam Vital Signs: Vital Signs: Last Vital Signs Temp 97.7 F 10/08/23 07:49 Pulse 67 10/08/23 07:49 Resp 16 10/08/23 07:49 BP 153/59 H 10/08/23 07:49 Pulse Ox 93 10/08/23 07:49 O2 Del Method Room Air 10/08/23 07:49 O2 Flow Rate 3 10/08/23 06:00 BMI result Body Mass Index 22.0 Const: Other: General: AO X 2, no acute distress Resp: CTA bilateral CVS: S1,S2,RRR GI: +BS, NT, no distention Skin: No rash Neuro: motor grossly intact Psych: appropriate affect Objective Data Active Medications Dextrose (Dextrose 50 % 25 Gm/50 Ml Syringe) 25 gm IVPUSH Q15M PRN; Protocol PRN Reason: per Hypoglycemia Standing Ord. Glucose (Glucose Gel 15 Gm Gel..Gram.) 15 gm PO Q15M PRN; Protocol PRN Reason: per Hypoglycemia Standing Ord. Heparin Sodium (Porcine) (Heparin Sodium,Porcine 5,000 Unit/Ml Vial) 5,000 unit SUBCUT Q8H [facility] Last Admin: 10/08/23 09:43 Dose: 5,000 unit Documented By: LINN Cefepime HCl 1 gm/ Sodium (Chloride) 50 mls @ 100 mls/hr IV Q12H [facility] Last Infusion: 10/08/23 07:48 Dose: Infused Documented By: LINN Metronidazole (Flagyl) 500 mg in 100 mls @ 100 mls/hr IV Q8H [facility] Last Infusion: 10/08/23 11:36 Dose: Infused Documented By: LINN Vancomycin HCl 1,000 mg/ (Sodium Chloride) 270 mls @ 270 mls/hr IV Q12H [facility] Last Infusion: 10/08/23 02:20 Dose: Infused Documented By: JONO Insulin Human Lispro (Insulin Lispro 100 Unit/Ml 3 Ml Vial) 0 unit SUBCUT QIDACHS [facility]; Protocol Last Admin: 10/08/23 09:44 Dose: 2 unit Documented By: LINN Pharmacy Consult (Consult Rx Vancomycin Dosing) 1 each MISCELLANE DAILY PRN PRN Reason: Consult order Potassium Chloride (Potassium Chloride Packet 20 Meq Packet) 40 meq PO Q8H [facility] Stop: 10/08/23 15:46 Last Admin: 10/08/23 09:43 Dose: 40 meq Documented By: LINN Labs 10/08/23 05:28 10/08/23 05:28 Labs: Laboratory Results - last 24 hr 10/07/23 10/07/23 10/08/23 16:51 20:55 05:28 MCV 97.9 MCH 32.5 MCHC 33.2 RDW 14.8 Plt Count 316 MPV 9.8 Immature Gran % (Auto) 0.6 H Neut % (Auto) 79.7 H Lymph % (Auto) 12.0 L [place] % (Auto) 7.2 Eos % (Auto) 0.1 Baso % (Auto) 0.4 Lymph # (Auto) 1.2 [place] # (Auto) 0.7 Eos # (Auto) 0.0 Baso # (Auto) 0.0 Abs Immat Gran (auto) 0.06 H Absolute Neuts (auto) 7.8 Absolute Nucleated RBC 0.000 Nucleated RBC % (auto) 0.0 Anion Gap 11 L Estim Creat Clear Calc 73.6 Estimated GFR > 60 POC Glucose 173 H 140 H Random Glucose 161 H Calcium 8.3 L Magnesium 2.1 Random Vancomycin 10/08/23 10/08/23 07:54 10:42 MCV MCH MCHC RDW Plt Count MPV Immature Gran % (Auto) Neut % (Auto) Lymph % (Auto) [place] % (Auto) Eos % (Auto) Baso % (Auto) Lymph # (Auto) [place] # (Auto) Eos # (Auto) Baso # (Auto) Abs Immat Gran (auto) Absolute Neuts (auto) Absolute Nucleated RBC Nucleated RBC % (auto) Anion Gap Estim Creat Clear Calc Estimated GFR POC Glucose 179 H Random Glucose Calcium Magnesium Random Vancomycin 14.9 L Microbiology Microbiology Results: Microbiology 10/05/23 13:38 Blood Culture - Preliminary Blood - Venous No growth after 48 hours. 10/05/23 13:38 Blood Culture - Preliminary Blood - Venous Coag negative Staphylococcus Assessment and Plan (1) Proctocolitis: Status: Acute (2) Acute renal insufficiency: Status: Acute (3) Septic shock: Status: Acute Plan 77 Y M with hypertension, diabetes, BPH and prior urinary tract infections, presented from nursing facility on 10/05 with encephalopathy, found to be hypotensive, hypothermic, started on vasopressors; in ED, work-up with possible pneumonia, urinalysis appears traumatic, not floridly suggestive of urinary tract infection, BLAZE, and CT abdomen, pelvis suggsetive of proctocolitis. He was admitted through ICU for vasopressors and transfered to med floor on 10/08 Sepsis d/t proctocolitis with shock, sock resovledwith IVF and vasopressors, has been treated with Cefepime,m Vanco and Flagyl. Blood cultures negative other 1/2 coag negative staph. Stop Vanco and Continue Cefepime and Flagyl. ID consult, GI consult in light of anemia BLAZE d/t hypotension, resolved Cr nl Anemia, acute on chroni, GI eval , no indication for transfusion at this time Hypokalemia, replace and repeat tomorrow. Mag normal HLD resume statin HTN, resume home meds now that BP is high Diabetes-SSI, hold lantus and metformin for now code DNR/DNI need for inaptient: IV Abx for proctocolitis, and exert eval DVT prophylaxis: heparin Quality Stroke Does the patient have a stroke diagnosis?: No VTE Prior VTE?: No VTE Risk Level:: Medical - moderate - high VTE Device Contraindication: N/A - Device Ordered VTE Drug Contraindication: N/A - Med Ordered
[2023-10-08 11:47] LABS: Adenovirus F 40/41 Not Detected (Not Detect.); Astrovirus Not Detected (Not Detect.); Campylobacter Not Detected (Not Detect.); Cryptosporidium Not Detected (Not Detect.); Cyclospora cayetanensis Not Detected (Not Detect.); E. coli EAEC Not Detected (Not Detect.); E. coli EPEC Not Detected (Not Detect.); E. coli ETEC Not Detected (Not Detect.); E. coli STEC Not Detected (Not Detect.); Entamoeba histolytica Not Detected (Not Detect.); Giardia lamblia Not Detected (Not Detect.); Norovirus GI/GII Not Detected (Not Detect.); Plesiomonas shigelloides Not Detected (Not Detect.); Rotavirus A Not Detected (Not Detect.); Salmonella Not Detected (Not Detect.); Sapovirus Not Detected (Not Detect.); Shigella sp./EIEC Not Detected (Not Detect.); Vibrio Not Detected (Not Detect.); Vibrio Cholerae Not Detected (Not Detect.); Yersinia enterocolitica Not Detected (Not Detect.)
[2023-10-08 11:54] LABS: Glucose, Whole Blood 153 mg/dL (60-115)
[2023-10-08] MEDS: Atorvastatin Calcium 40 MG TABLET PO (12:16)
[2023-10-08] MEDS: Cholecalciferol (Vitamin D3) 25 MCG TABLET 50 MCG PO (12:16)
[2023-10-08] MEDS: dilTIAZem HCL CD 240 MG CAP.ER.DEG PO (12:16)
--- NOTE | 2023-10-08 13:51 | PC.NURSE ---
Addendum entered by Janet Magdaleno RN 10/08/23 18:29: Pt voided ~100 mL at 1600 via [place] cath. Urine clear yellow. Original Note: Srinivasan catheter removed at 1100. Catheter tip intact upon removal. Pt tolerated removal well. [place] catheter applied. Pt due to void by 1700.
--- NOTE | 2023-10-08 16:29 | W.PM.IDCN ---
History of Present Illness Data of Consult Service Date: 10/08/23 Requesting physician: Mando Vivas Primary Care Provider: Carlos A Sinclair MD HPI Reason for consult: leukocytosis,lethargy He presents with weakness and hypotension from senior care. Staph capitus and other staph pending from blood. He has no fever or chills but leukcytosis. He has proctocolitis noted on CT scan abdomen. Review of Systems Review of Systems: Yes Unobtainable due to mental status [facility] Past Medical History Medical History BPH (benign prostatic hyperplasia) History of UTI Hypertension Neuropathy Diabetes Social History Social History Household Members: None Housing: Care Home Do you presently have visiting nurse or other home services: No Unable to assess alcohol history related to: Unable to respond and Unknown Alcohol intake: never Patient Tobacco Use Status: Never used Tobacco Tobacco use type: Cigarette Cigarette Packs Per Day: 1 Cigarettes Per Day: 9 Years Smoked: 50 e-Cigarette/Vaping Use: Never Used Second Hand Smoke Exposure: Yes Advance Directives Date on File: 07/24/23 service: Yes Current occupational status: retired Meds Allergies Allergy/AdvReac Type Severity Reaction Status Date / Time No Known Allergies Allergy Unverified 10/04/23 12:06 Active Medications: Current Medications Atorvastatin Calcium (Atorvastatin Calcium 40 Mg Tablet) 40 mg PO DAILY [facility] Last Admin: 10/08/23 12:16 Dose: 40 mg Dextrose (Dextrose 50 % 25 Gm/50 Ml Syringe) 25 gm IVPUSH Q15M PRN; Protocol PRN Reason: per Hypoglycemia Standing Ord. Diltiazem HCl (Diltiazem Hcl Cd 240 Mg Cap.Er.Deg) 240 mg PO DAILY [facility]; Protocol Last Admin: 10/08/23 12:16 Dose: 240 mg Glucose (Glucose Gel 15 Gm Gel..Gram.) 15 gm PO Q15M PRN; Protocol PRN Reason: per Hypoglycemia Standing Ord. Heparin Sodium (Porcine) (Heparin Sodium,Porcine 5,000 Unit/Ml Vial) 5,000 unit SUBCUT Q8H [facility] Last Admin: 10/08/23 09:43 Dose: 5,000 unit Cefepime HCl 1 gm/ Sodium (Chloride) 50 mls @ 100 mls/hr IV Q12H [facility] Last Infusion: 10/08/23 07:48 Dose: Infused Metronidazole (Flagyl) 500 mg in 100 mls @ 100 mls/hr IV Q8H [facility] Last Infusion: 10/08/23 11:36 Dose: Infused Vancomycin HCl 1,000 mg/ (Sodium Chloride) 270 mls @ 270 mls/hr IV Q12H [facility] Last Infusion: 10/08/23 15:00 Dose: Infused Insulin Human Lispro (Insulin Lispro 100 Unit/Ml 3 Ml Vial) 0 unit SUBCUT QIDACHS [facility]; Protocol Last Admin: 10/08/23 12:17 Dose: 2 unit Latanoprost (Latanoprost 0.005 % Ophth Vannessa 2.5 Ml Drops) 1 drop EYE-BOTH BEDTIME [facility] Pharmacy Consult (Consult Rx Vancomycin Dosing) 1 each MISCELLANE DAILY PRN PRN Reason: Consult order Pregabalin (Pregabalin 150 Mg Capsule) 150 mg PO BID [facility] Senna/Docusate Sodium (Sennosides/Docusate Sodium Tablet) 2 tab PO BEDTIME [facility] Vitamin D (Cholecalciferol (Vitamin D3) 25 Mcg Tablet) 50 mcg PO DAILY [facility] Last Admin: 10/08/23 12:16 Dose: 50 mcg Home Medications Medication Instructions Recorded Confirmed Last Taken Type alfuzosin 10 mg tablet,extended 10 mg PO DAILY 02/23/23 10/05/23 Unknown History release 24 hr atorvastatin 40 mg tablet 40 mg PO DAILY 02/23/23 10/05/23 Unknown History latanoprost 0.005 % eye drops 1 drp ophthalmic (eye) BEDTIME 02/23/23 10/05/23 Unknown History pregabalin 150 mg capsule 150 mg PO BID 02/23/23 10/05/23 Unknown History sennosides 8.6 mg-docusate sodium 2 tab-cap PO BEDTIME 02/23/23 10/05/23 Unknown History 50 mg tablet (Senna-S) cholecalciferol (vitamin D3) 25 50 mcg PO DAILY 09/17/23 10/05/23 Unknown History mcg (1,000 unit) tablet diltiazem HCl 240 mg 240 mg PO DAILY 09/17/23 10/05/23 Unknown History tablet,extended release 24 hr (Cardizem [place]) metformin 500 mg tablet,extended 500 mg PO DAILY 10/05/23 10/05/23 Unknown History release 24 hr Physical Exam Vital Signs: Vital Signs: Last Vital Signs Temp 97.7 F 10/08/23 15:39 Pulse 62 10/08/23 15:39 Resp 20 10/08/23 15:39 BP 122/51 L 10/08/23 15:39 Pulse Ox 93 10/08/23 15:39 O2 Del Method Room Air 10/08/23 15:39 O2 Flow Rate 3 10/08/23 06:00 BMI result Body Mass Index 22.0 Const: General: cooperative HEENT: Head: Yes normal to inspection Face and sinus: Yes normal facial exam Mouth: Normal oral and palatal mucosa present Teeth and gingiva: dentition normal Eyes: General: appearance normal, both eyes and all related structures Pupils: Equal, round and reactive pupils present Resp: Effort & Inspection: normal respiratory effort Cardio: Rate: regular rate Rhythm: regular rhythm GI: Palpation (GI): Soft to palpation and nontender : General: Yes no CVA tenderness Back/Spine/Pelvis: Back: no CVA tenderness Skin: General skin exam: no rashes or lesions noted Neuro: General: moves all extremities Cranial nerves: Yes Equal, round and reactive pupils present Extrem: General: Yes normal to inspection Psych: Other: confused Appearance: grossly normal Results Labs 10/08/23 05:28 10/08/23 05:28 Labs: Short CBC 10/08/23 Range/Units 05:28 WBC 9.7 (4.8-10.8) X10*3/uL Hgb 7.7 L (14.0-18.0) g/dl Hct 23.2 L (42.0-52.0) % Plt Count 316 (160-400) X10*3/uL BMP 10/08/23 05:28 Sodium 141 Potassium 3.1 L Chloride 107 Carbon Dioxide 26 BUN 22 H Creatinine 0.79 Calcium 8.3 L Microbiology Microbiology Results: Microbiology 10/05/23 13:38 Blood - Venous Blood Culture - Preliminary Gram positive cocci 10/05/23 13:38 Blood - Venous Blood Culture - Preliminary Staphylococcus capitis Assessment and Plan (1) Acute renal insufficiency: Status: Acute Do not think proctocolitis responsible for symptoms without any pain or need for surgical evalution. Also staph capitus likely contaminant,but other staph pending. (2) Acute dehydration: Status: Acute Plan Continue Vancomycin pending final subsequent blood culture. Stop Cefepime and flagyl.
[2023-10-08 16:41] LABS: Glucose, Whole Blood 156 mg/dL (60-115)
--- NOTE | 2023-10-08 18:43 | PM.EVENT ---
Event Note Date of Service: 10/08/23 Event Note: GI Consult-Full note dictated-History from patient(very limited), his RN, and the EMR. Imp/Recs: Anemia-no report of any obvious GI bleeding nor any definitive GI sx. This may be in relation to his recent hip fracture and surgery, as well as this current acute illness. Check Iron, Ferritin, B12, and Folate. Even if iron deficient I would hold off on endoscopic w/u due to his overall condition re: dementia and this acute illness. Report of proctocolitis on CT, but no clinical symptoms to suggest that at this time. This may reflect some changes due to his hypotension and a component of ischemic bowel, although again no sx such as bleeding or abdominal pain. Given no sx I would observe for now, but if diarrhea occurs check stool for Cdiff. Thanks Time Spent With Patient Time: Total time managing care of this patient today ____ minutes.
[2023-10-08 20:40] LABS: Glucose, Whole Blood 143 mg/dL (60-115)
[2023-10-08] MEDS: Pregabalin 150 MG CAPSULE PO (22:16)
[2023-10-08] MEDS: Latanoprost 0.005 % Ophth Sol 2.5 ML DROPS 1 DROP EYE-BOTH (22:16)
[2023-10-08] MEDS: Sennosides/Docusate Sodium TABLET 2 TAB PO (22:16)
[2023-10-09] VITALS: TEMP 36.8
--- NOTE | 2023-10-09 01:21 | CONS_ITS ---
DATE OF SERVICE: 10/08/2023 REASON FOR CONSULTATION: Anemia and abnormal CT scan of GI tract. HISTORY OF PRESENT ILLNESS: This has been obtained from the patient, although this is quite limited due to some underlying dementia, from his nurse, and from the medical record. The patient is a 77-year-old male who was transferred to the hospital from a fdc due to reported change in mental status and hypotension. He was admitted here to the ICU on October 05. He required pressor support in relation to the hypotension and was also noted to be hypothermic. He was treated for possible pneumonia and UTI, and a CT scan was suggestive of proctocolitis. There was no report of diarrhea nor hematochezia. His course stabilized in the ICU and he was transferred to the medical floor. He has had no signs of GI bleeding nor diarrhea since transfer to the medical floor. There has been no vomiting. He denies abdominal pain. He has been afebrile and his vital signs have been stable. The patient's past history is notable for a right hip fracture requiring surgery on September [address] Kay. He was discharged with a hemoglobin of 10.1 on September 20. When he was admitted here, his hemoglobin was 9.6 on October 05 and this gradually drifted down to 7.2 on October 07 with a repeat today of 7.7 without any transfusions. I do not see any report of previous colonoscopy at least in this hospital. CURRENT MEDICATIONS: His present medications include atorvastatin, vitamin D, subcu heparin, sliding scale insulin, eyedrops, Lyrica, Senokot with Colace, and IV vancomycin. At the fdc, he was on medications including Lovenox. PAST MEDICAL HISTORY: Recent right hip fracture surgery. Reported dementia. Insulin-dependent diabetes mellitus. Hypertension. Neuropathy from his diabetes. History of UTIs. SOCIAL HISTORY: He is presently at a fdc. There is no reported history of significant alcohol use. He does have a history of smoking. FAMILY HISTORY: Presently not available. REVIEW OF SYSTEMS: Not available from the patient. PHYSICAL EXAMINATION: GENERAL: The patient is an alert, cooperative male who answers yes and no to questions but does not know his age, year, nor present location. SKIN: Warm and dry. HEENT: Anicteric sclerae. CARDIAC: Normal S1, S2. ABDOMEN: Soft, nondistended, nontender without palpable mass. LABORATORY DATA: CBC as above. White count 9.7, hemoglobin 7.7, MCV 98, platelets 216,000, PT 12.6 with INR 1.0 on October 05. Sodium 141, potassium 3.1, BUN 22, creatinine 0.8 today. His labs on admission were notable for BUN of 40 with creatinine 2.4. GI panel was negative for any infections. A stool for C diff was not done. His CT scan describes some wall thickening and edema of the distal colon and rectum suggesting proctocolitis, but with a normal-appearing proximal colon and normal-appearing small bowel. Blood cultures are positive for Staphylococcus capitis. IMPRESSION: In regard to the patient's anemia, this could very well be in relation to his recent hip fracture and surgery, and chronic use of Lovenox at the fdc. There has been no reported GI bleeding and therefore I doubt this is related to any acute GI blood loss. Certainly, his current acute illness with what appears to be a component of sepsis due to his hypothermia, hypotension, and positive blood cultures could be contributing to the anemia as well. I would check iron levels, ferritin level, B12 level, and folate level. Even if he is found to be iron deficient, I would hold off on any type of endoscopic workup due to his overall condition regarding the dementia and the acute illness. In regard to the report of proctocolitis on his CAT scan, he does not have any clinical symptoms to suggest at this time. This may reflect some changes due to his associated hypotension and a component of some ischemic bowel, although again there has been no symptoms such as bleeding or abdominal pain. Given no active symptoms I would observe him in that regard, but if diarrhea was to develop I would be sure to send off a stool for C difficile. I do not think endoscopic evaluation is required, but certainly if he begins to have diarrhea that is persistent, we could always consider at least a limited colonoscopy. Thank you for the consultation. MD SHADI Cantu/RAVI / [id number] CHU
[2023-10-09] MEDS: vancomycin HCL 1,000 MG in 0.9 % Sodium Chloride 250 ML 270 MG IV (02:46)
[2023-10-09] MEDS: Heparin Sodium,Porcine 5,000 UNIT/ML VIAL 5000 UNIT SUBCUT ×3 (02:47→17:10)
[2023-10-09 06:11] LABS: MANUAL DIFF FLAG NO
[2023-10-09 06:31] LABS: Basophils Percent Auto 0.5 % (0-2); Eosinophils Percent Auto 0.4 % (0-4); Hematocrit 25.4 % (42.0-52.0); Hemoglobin 8.3 g/dl (14.0-18.0); Imm Gran Abs Auto 0.13 X10*3/uL (0.00-0.03); Imm Gran Pct Auto 1.6 % (0.0-0.4); Lymphocytes Absolute Auto 1.1 X10*3/uL (1.2-4.9); Mean Corpuscular HGB Conc 32.7 g/dl (31.0-36.0); Mean Corpuscular Hemoglobin 32.4 pg (27.0-33.0); Mean Corpuscular Volume 99.2 fL (80.0-98.0); Monocytes Absolute Auto 0.7 X10*3/uL (0.1-1.2); Monocytes Percent Auto 8.1 % (2-11); Neutrophils Absolute Auto 6.2 x10*3/uL (2.0-8.3); Neutrophils Percent Auto 76.4 % (45-73); Platelet Count 330 X10*3/uL (160-400); Red Blood Count 2.56 X10*6/uL (4.60-5.80); Red Cell Distribution Width 14.6 % (11.0-16.0); White Blood Count 8.2 X10*3/uL (4.8-10.8)
[2023-10-09 06:34] LABS: Anion Gap 13 (12-20); Blood Urea Nitrogen 24 mg/dL (9-16); Calcium 8.3 mg/dL (8.4-10.2); Carbon Dioxide 24 mmol/L (22-29); Chloride 108 mmol/L (96-108); Creatinine Clr Calc Pharmacy 80.8; Estimated Glomerular Filt Rate > 60; Glucose Random 180 mg/dL (60-115); Iron 67 mcg/dL (45-160); Percent Iron Saturation 66 % (15-50); Potassium 3.3 mmol/L (3.3-5.1); Sodium 142 mmol/L (135-145); Total Iron Binding Capacity 101 mcg/dL (228-428); Unsaturated Iron Binding 34 ug/dL
[2023-10-09 06:55] LABS: Ferritin 1150 ng/mL (20-250)
[2023-10-09 07:10] LABS: Folate 5.6 ng/mL (> or = 4.0); Vitamin B12 570 pg/mL (200-900)
[2023-10-09 07:35] LABS: Glucose, Whole Blood 173 mg/dL (60-115)
[2023-10-09 07:54] VITALS: BP 137/59; PULSE 58; RESP 19; TEMP 36.9
[2023-10-09] MEDS: Atorvastatin Calcium 40 MG TABLET PO (08:24)
[2023-10-09] MEDS: Insulin Lispro 100 UNIT/ML 3 ML VIAL SUBCUT ×4 (08:24→22:19)
[2023-10-09] MEDS: Cholecalciferol (Vitamin D3) 25 MCG TABLET 50 MCG PO (08:24)
[2023-10-09] MEDS: Pregabalin 150 MG CAPSULE PO ×2 (08:24→22:19)
[2023-10-09 11:15] LABS: Vancomycin Trough 18.2 mcg/mL (10.0-20.0)
[2023-10-09 11:20] LABS: Glucose, Whole Blood 186 mg/dL (60-115)
--- NOTE | 2023-10-09 11:24 | HE.PHANOTE ---
RE VANCO DOSING CONTINUE WITH CURRENT REGIMEN BUT RECHECK LEVEL 10/10 @1100 TO ENSURE WE DON'T OVERSHOOT WITH TREATMENT
--- NOTE | 2023-10-09 11:27 | MHC.SL.SWA ---
Speech Pathologist Impression: Risk of Aspiration Due to: Reduced Cognition Dysphasia Diet Status: Liquid Consistency and Strategies for Safe Swallow: Liquid Intake Recommendation: Thin Liquid Intake Strategies: Unrestricted Solid Food Consistency: Dietary Recommendations: Grnd/Mech Altered (NDD2) Oral Medication Intake: Whole with Puree Please contact the pharmacy regarding appropriate crushable or liquid drug formulations that are available whenever modified delivery is recommended. Compensatory Strategies and Precautions to be Taken for Safe Swallow: Sitting Upright (90 deg) Liquids from Cup Liquids from Straw Alternate Liquids/Solids Rate of Ingestion Change Oral Check Supervision While Eating and Drinking for Safe Swallow: Total Supervision (1:1) Foods to Avoid: Avoid difficult to chew solids given altered mental status. Swallowing Recommended Treatments: Compens. Strategy Educat. Recommendation for Speech: Inpatient Speech Therapy Comment: Recommend downgrade to Ground/Mech. Altered (NDD2) Solids and Thin Liquids. Medications Whole with Puree, as tolerated. Encourage alternating bites/sips to facilitate oral clearance. Recommend 1:1 supervision with meals to assist with timely and adequate oral intake. See RD reccs for nutritional supplements. Collection Correspondent Clinican/Clinical Fellow: No Supervisory Statement: I have reviewed and agree with the student/clinical fellow's documentation: N/A Speech Language Pathologist: Lebron Christie M.A., CCC-BASE MANAGER
[2023-10-09 12:00] VITALS: RESP 19
[2023-10-09 15:29] VITALS: BP 121/56; PULSE 56; RESP 20; TEMP 36.7; O2SAT 95
[2023-10-09 16:15] LABS: Glucose, Whole Blood 190 mg/dL (60-115)
--- NOTE | 2023-10-09 17:02 | P.PNIM_ITS ---
Subjective Subjective Date of Service: 10/09/23 Interval History: proctocolitis, hypotension. Doing better, no new issues, denies pain Review of Systems denies abd pain no nausea or vomiting Physical Exam 2 Vital Signs: Vital Signs: Last Vital Signs Temp 98.1 F 10/09/23 15:29 Pulse 56 10/09/23 15:29 Resp 20 10/09/23 15:29 BP 121/56 L 10/09/23 15:29 Pulse Ox 95 10/09/23 15:29 O2 Del Method Room Air 10/09/23 15:29 O2 Flow Rate 3 10/08/23 06:00 FiO2 98 10/09/23 07:54 BMI result Body Mass Index 22.0 General: AO X 2, no acute distress Resp: CTA bilateral CVS: S1,S2,RRR GI: +BS, NT, no distention Skin: No rash Neuro: motor grossly intact Psych: appropriate affect Objective Data Active Medications Atorvastatin Calcium (Atorvastatin Calcium 40 Mg Tablet) 40 mg PO DAILY [facility] Last Admin: 10/09/23 08:24 Dose: 40 mg Documented By: LINN Dextrose (Dextrose 50 % 25 Gm/50 Ml Syringe) 25 gm IVPUSH Q15M PRN; Protocol PRN Reason: per Hypoglycemia Standing Ord. Glucose (Glucose Gel 15 Gm Gel..Gram.) 15 gm PO Q15M PRN; Protocol PRN Reason: per Hypoglycemia Standing Ord. Heparin Sodium (Porcine) (Heparin Sodium,Porcine 5,000 Unit/Ml Vial) 5,000 unit SUBCUT Q8H [facility] Last Admin: 10/09/23 08:24 Dose: 5,000 unit Documented By: LINN Insulin Human Lispro (Insulin Lispro 100 Unit/Ml 3 Ml Vial) 0 unit SUBCUT QIDACHS [facility]; Protocol Last Admin: 10/09/23 13:29 Dose: 2 unit Documented By: LINN Latanoprost (Latanoprost 0.005 % Ophth Vannessa 2.5 Ml Drops) 1 drop EYE-BOTH BEDTIME [facility] Last Admin: 10/08/23 22:16 Dose: 1 drop Documented By: ANASTASIA Pregabalin (Pregabalin 150 Mg Capsule) 150 mg PO BID [facility] Last Admin: 10/09/23 08:24 Dose: 150 mg Documented By: LINN Senna/Docusate Sodium (Sennosides/Docusate Sodium Tablet) 2 tab PO BEDTIME [facility] Last Admin: 10/08/23 22:16 Dose: 2 tab Documented By: ANASTASIA Vitamin D (Cholecalciferol (Vitamin D3) 25 Mcg Tablet) 50 mcg PO DAILY [facility] Last Admin: 10/09/23 08:24 Dose: 50 mcg Documented By: LINN Labs 10/09/23 05:53 10/09/23 05:53 Labs: Laboratory Results - last 24 hr 10/08/23 10/09/23 10/09/23 20:36 05:53 07:18 MCV 99.2 H MCH 32.4 MCHC 32.7 RDW 14.6 Plt Count 330 MPV 10.0 Immature Gran % (Auto) 1.6 H Neut % (Auto) 76.4 H Lymph % (Auto) 13.0 L [place] % (Auto) 8.1 Eos % (Auto) 0.4 Baso % (Auto) 0.5 Lymph # (Auto) 1.1 L [place] # (Auto) 0.7 Eos # (Auto) 0.0 Baso # (Auto) 0.0 Abs Immat Gran (auto) 0.13 H Absolute Neuts (auto) 6.2 Absolute Nucleated RBC 0.000 Nucleated RBC % (auto) 0.0 Anion Gap 13 Estim Creat Clear Calc 80.8 Estimated GFR > 60 POC Glucose 143 H 173 H Random Glucose 180 H Calcium 8.3 L Iron 67 TIBC 101 L % Saturation 66 H Unsat Iron Binding 34 Ferritin 1150 H Vitamin B12 570 Folate 5.6 Vancomycin Trough 10/09/23 10/09/23 10/09/23 10:55 11:06 16:08 MCV MCH MCHC RDW Plt Count MPV Immature Gran % (Auto) Neut % (Auto) Lymph % (Auto) [place] % (Auto) Eos % (Auto) Baso % (Auto) Lymph # (Auto) [place] # (Auto) Eos # (Auto) Baso # (Auto) Abs Immat Gran (auto) Absolute Neuts (auto) Absolute Nucleated RBC Nucleated RBC % (auto) Anion Gap Estim Creat Clear Calc Estimated GFR POC Glucose 186 H 190 H Random Glucose Calcium Iron TIBC % Saturation Unsat Iron Binding Ferritin Vitamin B12 Folate Vancomycin Trough 18.2 Microbiology Microbiology Results: Microbiology 10/05/23 13:38 Blood Culture - Final Blood - Venous Staphylococcus capitis 10/05/23 13:38 Blood Culture - Final Blood - Venous Staphylococcus capitis Assessment and Plan (1) Proctocolitis: Status: Acute (2) Acute renal insufficiency: Status: Acute Plan 77 Y M with hypertension, diabetes, BPH and prior urinary tract infections, presented from nursing facility on 10/05 with encephalopathy, found to be hypotensive, hypothermic, started on vasopressors; in ED, work-up with possible pneumonia, urinalysis appears traumatic, not floridly suggestive of urinary tract infection, BLAZE, and CT abdomen, pelvis suggsetive of proctocolitis. He was admitted through ICU for vasopressors and transfered to med floor on 10/08 patient intially Sepsis d/t proctocolitis with shock, shock resovled with IVF and vasopressors, has been treated with Cefepime,m Vanco and Flagyl. Leukocytosis resolved, no fever. patient denies any gi symptoms No fever blood culture grew Staphylococcus capitis which seems to be contaminant Seen by GI :proctocolitis on CT, but no clinical symptoms to suggest that at this time. Further workup outpatient unless patient has diarrhea again h/h stable around 8.3/25.4 range d/w ID: moniter off antibiotics BLAZE d/t hypotension, resolved Cr nl Anemia, acute on chroni, GI eval , no indication for transfusion at this time Hypokalemia, replace and repeat tomorrow. Mag normal HLD resume statin HTN, resume home meds now that BP is high Diabetes-SSI, hold lantus and metformin for now code DNR/DNI. DVT prophylaxis: heparin need for inaptient: IV Abx for proctocolitis, and exert eval Quality Stroke Does the patient have a stroke diagnosis?: No VTE Prior VTE?: No VTE Risk Level:: Medical - moderate - high VTE Device Contraindication: N/A - Device Ordered VTE Drug Contraindication: N/A - Med Ordered
[2023-10-09 20:00] VITALS: BP 167/72; PULSE 59; RESP 20; TEMP 37.7; O2SAT 99
[2023-10-09 20:49] LABS: Glucose, Whole Blood 167 mg/dL (60-115)
[2023-10-09] MEDS: Latanoprost 0.005 % Ophth Sol 2.5 ML DROPS 1 DROP EYE-BOTH (22:19)
[2023-10-09] MEDS: Sennosides/Docusate Sodium TABLET 2 TAB PO (22:20)
[2023-10-09 23:44] VITALS: BP 128/62; PULSE 61; RESP 20; TEMP 36.7; O2SAT 95
[2023-10-10] VITALS (7 sets, daily range): BP systolic 141–172; BP diastolic 50–73; PULSE 51–62; RESP 14–19; TEMP 36.3–37.2; O2SAT 94–98; BMI 22.1
[2023-10-10] MEDS: Heparin Sodium,Porcine 5,000 UNIT/ML VIAL 5000 UNIT SUBCUT ×3 (01:36→17:16)
[2023-10-10 06:26] LABS: MANUAL DIFF FLAG NO
[2023-10-10 06:34] LABS: Basophils Absolute Auto 0.1 X10*3/uL (0.0-0.2); Basophils Percent Auto 0.7 % (0-2); Eosinophils Absolute Auto 0.2 X10*3/uL (0.0-0.4); Hematocrit 25.8 % (42.0-52.0); Hemoglobin 8.6 g/dl (14.0-18.0); Imm Gran Abs Auto 0.34 X10*3/uL (0.00-0.03); Lymphocytes Absolute Auto 1.6 X10*3/uL (1.2-4.9); Lymphocytes Percent Auto 19.2 % (20-40); Mean Corpuscular HGB Conc 33.3 g/dl (31.0-36.0); Mean Corpuscular Hemoglobin 32.3 pg (27.0-33.0); Mean Platelet Volume 9.7 fL (9.4-12.4); Monocytes Absolute Auto 0.7 X10*3/uL (0.1-1.2); Monocytes Percent Auto 7.7 % (2-11); Neutrophils Absolute Auto 5.6 x10*3/uL (2.0-8.3); Neutrophils Percent Auto 66.4 % (45-73); Platelet Count 341 X10*3/uL (160-400); Red Blood Count 2.66 X10*6/uL (4.60-5.80); Red Cell Distribution Width 14.5 % (11.0-16.0); White Blood Count 8.4 X10*3/uL (4.8-10.8)
[2023-10-10 06:44] LABS: Anion Gap 12 (12-20); Blood Urea Nitrogen 20 mg/dL (9-16); Calcium 8.3 mg/dL (8.4-10.2); Carbon Dioxide 26 mmol/L (22-29); Chloride 108 mmol/L (96-108); Creatinine Clr Calc Pharmacy 83.1; Estimated Glomerular Filt Rate > 60; Glucose Random 158 mg/dL (60-115); Potassium 3.4 mmol/L (3.3-5.1); Sodium 143 mmol/L (135-145)
[2023-10-10 07:25] LABS: Glucose, Whole Blood 200 mg/dL (60-115)
--- NOTE | 2023-10-10 07:30 | PC.NURSE ---
10/10/23 9230. Patient found incontinent of BM and urine. Unable to send stool for C.diff as ordered seconary to stool being mixed with urine.
[2023-10-10] MEDS: Insulin Lispro 100 UNIT/ML 3 ML VIAL SUBCUT ×3 (08:23→17:16)
[2023-10-10] MEDS: Pregabalin 150 MG CAPSULE PO ×2 (08:24→20:20)
[2023-10-10] MEDS: Atorvastatin Calcium 40 MG TABLET PO (08:24)
[2023-10-10] MEDS: Cholecalciferol (Vitamin D3) 25 MCG TABLET 50 MCG PO (08:24)
--- NOTE | 2023-10-10 08:34 | P.CDIM_ITS ---
PROVIDER RESPONSE TEXT: To clarify, the appropriate diagnosis supported by the clinical indicators: Other (explain): possible unsepcified dementia QUERY TEXT: PHYSICIAN'S DOCUMENTATION REQUEST Date of Query: 10/09/2023 10:11 AM EST Patient Name: Juan Miguel Alvarado Admit Date: 10/05/2023 Dear Rola Ahn, A review of the medical record indicates additional documentation may be needed. Please review below and update the documentation accordingly. Clinical Indicators: H&P: Chief complaint - Encephalopathy Altered mental status, poa ICU notes: encephalopathy, now patient is alert and oriented x 2 PN 10/08 - Presented from nursing facility on 10/05 with encephalopathy, found hypotensive, hypotherm ic and BLAZE. Sepsis with septic shock. Based on the above, please further specify, in the Progress Notes, the known or suspected type of the documented encephalopathy: Metabolic Septic Toxic Toxic metabolic Other (explain) Clinically unable to determine (explain) Thank you, Li Guajardo, CCS, CDIS Use of terms such as suspected, likely, concern for, or probable (associated with a specific diagnosi s that is being evaluated, monitored, or treated as if it exists) are acceptable and can be coded in the inpatient se tting, when documented at the time of discharge. Please use your independent medical judgment in providing your response. THIS QUERY IS PART OF THE PERMANENT MEDICAL RECORD
[2023-10-10 09:32] LABS: Estimated Average Glucose 163 mg/dL; Hemoglobin A1c % 7.3 % (<6.0)
[2023-10-10] MEDS: amLODIPine Besylate 2.5 MG TABLET PO (10:49)
--- NOTE | 2023-10-10 11:04 | MHC.SL.SWA ---
Risk of Aspiration Due to: Reduced Cognition Dysphasia Diet Status: NO CHANGE Liquid Consistency and Strategies for Safe Swallow: Liquid Intake Recommendation: Thin Liquid Intake Strategies: Unrestricted Solid Food Consistency: Dietary Recommendations: Grnd/Mech Altered (NDD2) Oral Medication Intake: Crushed with Puree Please contact the pharmacy regarding appropriate crushable or liquid drug formulations that are available whenever modified delivery is recommended. Compensatory Strategies and Precautions to be Taken for Safe Swallow: Sitting Upright (90 deg) Small Bites and Sips Supervision While Eating and Drinking for Safe Swallow: Total Supervision (1:1) Foods to Avoid: Avoid difficult to chew solids given altered mental status. Swallowing Recommended Treatments: Compens. Strategy Educat. Recommendation for Speech: Inpatient Speech Therapy Recommend patient continue with ground/mech altered solids (NDD2) and thin liquids. Recommend meds crushed in puree; baseline at [facility]. Recommend continued total supervision d/t RN report of patient pocketing pills crushed/whole in pudding overnight. Baseline at [facility] reported as both dysphagia advanced and mechanical soft. Waiting manager environmental affairs from [employer] at [facility] to provide more information regarding consistency of diet. Customer Service Advocate Clinican/Clinical Fellow: No Supervisory Statement: I have reviewed and agree with the student/clinical fellow's documentation: N/A Speech Language Pathologist: Breann Stanton M.A., CCC-[employer]
[2023-10-10 11:22] LABS: Vancomycin Random 7.1 mcg/mL (15-20)
--- NOTE | 2023-10-10 11:33 | MHC.CLN ---
F/U PT WITH INCREASED NUTRITION RISK R/T PRESSURE INJURIES PO INTAKE 25% DIET RX: 2000DM GRD M/S-APPROPRIATE PT RECEIVING ENSURE MAX BID TO PROMOTE WOUND HEALING SUPP TO PROVIDE 300KCALS, 60G PROTEIN MONITOR PO INTAKE CLOSELY
[2023-10-10 11:38] LABS: Glucose, Whole Blood 197 mg/dL (60-115)
--- NOTE | 2023-10-10 14:41 | MHC.CM.PN ---
Per MD, Patient is likely ready for dc tomorrow, to return to LTC @ [facility].CM will follow.
--- NOTE | 2023-10-10 14:56 | HO.WOUND ---
Wound Consult: Initial 77yr old male admitted to [facility] on? 10/05/23 17:12- See progress notes and H&P for detailed history. Sacrum Etiology: Unstageable Pressure Injury Present on Admission Measurements: 4.5cm x 2cm x 0.2cm Wound Bed: central areas of yellow adherent moist slough - surrounded by red pink moist tissue - MASD (Moisture Associated Skin Damage) component noted Drainage / Odor: small amount of serosang drainage noted - no odor Edges: ? Linear and defined Katelyn wound: ? pink blanchable tissue - MASD (Moisture Associated Skin Damage) No Induration, No Fluctuance Pain: Mild pain reported Goals of Treatment: ? Off Load Pressure - Triad to aid in off loading pressure foam protection Right Heel Etiology: Deep Tissue Injury - Present on Admission Measurements: 4cm x 5cm x 0cm Wound Bed: Intact Dark purple nonblanchable tissue Drainage / Odor: None Edges: ?defined Katelyn wound: ? Dry intact tissue No Induration, No Fluctuance - scattered areas of nonblanchable intact tissue Pain: Mild pain reported Goals of Treatment: ? Off Load Pressure with boots and barrier spray to prevent friction Right lateral ankle / malleolus Etiology: Deep Tissue Injury - Present on Admission Measurements: 1.2cm x 1cm x 0cm Wound Bed: Intact Dark purple nonblanchable tissue Drainage / Odor: None Edges: ?defined Katelyn wound: ? Dry intact tissue No Induration, No Fluctuance Pain: Mild pain reported Goals of Treatment: ? Off Load Pressure with boots and barrier spray to prevent friction Left Heel Etiology: Deep Tissue Injury - Present on Admission Measurements: 1.5cm x 1cm x 0cm Wound Bed: Intact maroon purple nonblanchable tissue Drainage / Odor: None Edges: ?defined Katelyn wound: ? Dry intact tissue No Induration, No Fluctuance Pain: Mild pain reported Goals of Treatment: ? Off Load Pressure with boots and barrier spray to prevent friction Right Hip Incision Etiology: Dehiscence Surgical Incision Measurements: 1cm x 0.2cm Wound Bed: unable to visualize Drainage / Odor: No odor - small amount of red dried drainage Edges: ?defined Katelyn wound: ? Dry intact tissue No Induration, No Fluctuance resolving bruising noted Pain: No pain reported Goals of Treatment: ?Durafiber AG for moisture management and antimicrobial properties - TT provider aware Recommendations: 1. Turn and Reposition every 2 hours and as needed for patient comfort consider use of wedges available in the storeroom. 2. Off Load all bony prominences with use of pillows, wedges and heel boots. (Heels boots in place) 3. Monitor for incontinence and moisture control. 4. Provide adequate and supplemental nutrition. 5. Order low air loss mattress. 6. Maintain blood glucose levels per Providers orders. 7. Right Hip - Cleanse with NS, Pat dry. Cover wound bed with cut to size Durafiber AG - cover with foam dressing. Change Daily. 8. Sacrum - Off Load Pressure - Cleanse with PH balance spray, pat dry. ?Apply thin layer of Triad to wound bed - only pat and dab no scrub and rub when soiling occurs. Cover with foam dressing. Change daily. 9. Bilateral Heels and ankle - Off Load Pressure. Apply skin barrier wipe to DTI allow to dry. Place in off loading boot while in bed to lift off of bed surface. Re-consult wound care Nurse for wound deterioration or wound changes.
--- NOTE | 2023-10-10 15:28 | PM.CNOR ---
History of Present Illness HPI Consult date: 10/10/23 Chief complaint: Encephalopathy Narrative: MR. Alvarado is a 77 yo male who is post-op right hip hemiarthroplasty, 09/20/23. He presented to the ED on 10/05 with septic shock due to proctocolitis. He was admitted to the medicine service. During his stay, a wound check of the operative hip was performed and noted to have a small opening. Orthopedics was consulted for further evaluation. Review of Systems Review of Systems: Yes all other systems are reviewed and are negative [facility] Past Medical History Medical History BPH (benign prostatic hyperplasia) History of UTI Hypertension Neuropathy Diabetes Social History Social History Household Members: None Housing: Skilled Nursing Do you presently have visiting nurse or other home services: No Unable to assess alcohol history related to: Unable to respond and Unknown Alcohol intake: never Patient Tobacco Use Status: Never used Tobacco Tobacco use type: Cigarette Cigarette Packs Per Day: 1 Cigarettes Per Day: 9 Years Smoked: 50 e-Cigarette/Vaping Use: Never Used Second Hand Smoke Exposure: Yes Advance Directives Date on File: 07/24/23 service: Yes Current occupational status: retired Meds Allergies Allergy/AdvReac Type Severity Reaction Status Date / Time No Known Allergies Allergy Unverified 10/04/23 12:06 Active Medications: Current Medications Amlodipine Besylate (Amlodipine Besylate 2.5 Mg Tablet) 2.5 mg PO DAILY [facility]; Protocol Last Admin: 10/10/23 10:49 Dose: 2.5 mg Atorvastatin Calcium (Atorvastatin Calcium 40 Mg Tablet) 40 mg PO DAILY [facility] Last Admin: 10/10/23 08:24 Dose: 40 mg Dextrose (Dextrose 50 % 25 Gm/50 Ml Syringe) 25 gm IVPUSH Q15M PRN; Protocol PRN Reason: per Hypoglycemia Standing Ord. Glucose (Glucose Gel 15 Gm Gel..Gram.) 15 gm PO Q15M PRN; Protocol PRN Reason: per Hypoglycemia Standing Ord. Heparin Sodium (Porcine) (Heparin Sodium,Porcine 5,000 Unit/Ml Vial) 5,000 unit SUBCUT Q8H [facility] Last Admin: 10/10/23 08:25 Dose: 5,000 unit Insulin Human Lispro (Insulin Lispro 100 Unit/Ml 3 Ml Vial) 0 unit SUBCUT QIDACHS [facility]; Protocol Last Admin: 10/10/23 12:21 Dose: 2 unit Latanoprost (Latanoprost 0.005 % Ophth Vannessa 2.5 Ml Drops) 1 drop EYE-BOTH BEDTIME [facility] Last Admin: 10/09/23 22:19 Dose: 1 drop Pregabalin (Pregabalin 150 Mg Capsule) 150 mg PO BID [facility] Last Admin: 10/10/23 08:24 Dose: 150 mg Senna/Docusate Sodium (Sennosides/Docusate Sodium Tablet) 2 tab PO BEDTIME [facility] Last Admin: 10/09/23 22:20 Dose: 2 tab Tamsulosin HCl (Tamsulosin Hcl 0.4 Mg Capsule) 0.4 mg PO BEDTIME [facility] Vitamin D (Cholecalciferol (Vitamin D3) 25 Mcg Tablet) 50 mcg PO DAILY [facility] Last Admin: 10/10/23 08:24 Dose: 50 mcg Home Medications Medication Instructions Recorded Confirmed Last Taken Type alfuzosin 10 mg tablet,extended 10 mg PO DAILY 02/23/23 10/05/23 Unknown History release 24 hr atorvastatin 40 mg tablet 40 mg PO DAILY 02/23/23 10/05/23 Unknown History latanoprost 0.005 % eye drops 1 drp ophthalmic (eye) BEDTIME 02/23/23 10/05/23 Unknown History pregabalin 150 mg capsule 150 mg PO BID 02/23/23 10/05/23 Unknown History sennosides 8.6 mg-docusate sodium 2 tab-cap PO BEDTIME 02/23/23 10/05/23 Unknown History 50 mg tablet (Senna-S) cholecalciferol (vitamin D3) 25 50 mcg PO DAILY 09/17/23 10/05/23 Unknown History mcg (1,000 unit) tablet diltiazem HCl 240 mg 240 mg PO DAILY 09/17/23 10/05/23 Unknown History tablet,extended release 24 hr (Cardizem LA) metformin 500 mg tablet,extended 500 mg PO DAILY 10/05/23 10/05/23 Unknown History release 24 hr Physical Exam Vital Signs: Vital Signs: Last Vital Signs Temp 98.7 F 10/10/23 11:41 Pulse 62 10/10/23 11:41 Resp 16 10/10/23 11:41 BP 156/70 H 10/10/23 11:41 Pulse Ox 94 10/10/23 11:41 O2 Del Method Room Air 10/10/23 11:41 O2 Flow Rate 3 10/08/23 06:00 FiO2 98 10/09/23 07:54 BMI result Body Mass Index 22.1 Const: General: cooperative, healthy appearing and no acute distress Resp: Effort & Inspection: normal respiratory effort and able to speak in complete sentences Cardio: Rate: regular rate Peripheral pulses: Peripheral pulses 2+ throughout GI: Palpation (GI): Soft to palpation Skin: Lesions: no lesions Rashes: no rashes Extrem: Other: Right hip incision site has a small deep opening at the proximal incision site. No active drainage or surrounding erythema. No signs of infection. Results Labs 10/10/23 06:07 10/10/23 06:07 Labs: Abnormal lab results 10/09/23 10/09/23 10/10/23 Range/Units 16:08 20:45 06:07 RBC 2.66 L (4.60-5.80) X10*6/uL Hgb 8.6 L (14.0-18.0) g/dl Hct 25.8 L (42.0-52.0) % Immature Gran % (Auto) 4.0 H (0.0-0.4) % Lymph % (Auto) 19.2 L (20-40) % Abs Immat Gran (auto) 0.34 H (0.00-0.03) X10*3/uL BUN 20 H (9-16) mg/dL POC Glucose 190 H 167 H (60-115) mg/dL Random Glucose 158 H (60-115) mg/dL Hemoglobin A1c % 7.3 H (<6.0) % Calcium 8.3 L (8.4-10.2) mg/dL Random Vancomycin (15-20) mcg/mL 10/10/23 10/10/23 10/10/23 Range/Units 07:21 10:50 11:35 RBC (4.60-5.80) X10*6/uL Hgb (14.0-18.0) g/dl Hct (42.0-52.0) % Immature Gran % (Auto) (0.0-0.4) % Lymph % (Auto) (20-40) % Abs Immat Gran (auto) (0.00-0.03) X10*3/uL BUN (9-16) mg/dL POC Glucose 200 H 197 H (60-115) mg/dL Random Glucose (60-115) mg/dL Hemoglobin A1c % (<6.0) % Calcium (8.4-10.2) mg/dL Random Vancomycin 7.1 L (15-20) mcg/mL H & H 10/05/23 10/05/23 10/06/23 Range/Units 13:38 18:33 05:20 Hgb 9.6 L 8.3 L 8.5 L (14.0-18.0) g/dl Hct 28.4 L 24.6 L 25.5 L (42.0-52.0) % 10/07/23 10/08/23 10/09/23 Range/Units 05:30 05:28 05:53 Hgb 7.2 L 7.7 L 8.3 L (14.0-18.0) g/dl Hct 21.9 L 23.2 L 25.4 L (42.0-52.0) % 10/10/23 Range/Units 06:07 Hgb 8.6 L (14.0-18.0) g/dl Hct 25.8 L (42.0-52.0) % Coagulation 10/05/23 Range/Units 13:39 INR 1.0 (0.9-1.1) All other labs normal. Assessment and Plan (1) Closed fracture of right hip: Qualifiers: Encounter type: initial encounter Qualified Code(s): S72.001A - Fracture of unspecified part of neck of right femur, initial encounter for closed fracture Status: Acute Small deep incision site opening proximal incision site Daily sterile dressing changes No acute orthopedic intervention needed at this time No signs of infection Procedures Date of Service Date of Service: 10/10/23
[2023-10-10 16:14] LABS: Glucose, Whole Blood 185 mg/dL (60-115)
--- NOTE | 2023-10-10 16:15 | P.PNIM_ITS ---
Subjective Subjective Date of Service: 10/10/23 Interval History: follow up Review of Systems seems more awake denies any new c/o. Physical Exam 2 Vital Signs: Vital Signs: Last Vital Signs Temp 98.6 F 10/10/23 15:40 Pulse 60 10/10/23 15:40 Resp 18 10/10/23 15:40 BP 160/50 H 10/10/23 15:40 Pulse Ox 98 10/10/23 15:40 O2 Del Method Room Air 10/10/23 15:40 O2 Flow Rate 3 10/08/23 06:00 FiO2 98 10/09/23 07:54 BMI result Body Mass Index 22.1 Appearance: Alert.? Oriented X3. cvs: rrr, [id number] , no murmur res: clear to auscultation ,no rhonchii or wheezing abd: no rebound or guarding ,nt, bs present. ext pulses present , no cyanosis. sacrum:Unstageable Pressure Injury Present on Admission heel pressure area . hip incision area-clean ,No active drainage or surrounding erythema. No signs of infection. neuro: axo3 , nonfocal. Objective Data Active Medications Amlodipine Besylate (Amlodipine Besylate 2.5 Mg Tablet) 2.5 mg PO DAILY COUNTS INCLUDE 234 BEDS AT THE [facility]; Protocol Last Admin: 10/10/23 10:49 Dose: 2.5 mg Documented By: LUIS FELIPE Atorvastatin Calcium (Atorvastatin Calcium 40 Mg Tablet) 40 mg PO DAILY COUNTS INCLUDE 234 BEDS AT THE [facility] Last Admin: 10/10/23 08:24 Dose: 40 mg Documented By: LUIS FELIPE Dextrose (Dextrose 50 % 25 Gm/50 Ml Syringe) 25 gm IVPUSH Q15M PRN; Protocol PRN Reason: per Hypoglycemia Standing Ord. Glucose (Glucose Gel 15 Gm Gel..Gram.) 15 gm PO Q15M PRN; Protocol PRN Reason: per Hypoglycemia Standing Ord. Heparin Sodium (Porcine) (Heparin Sodium,Porcine 5,000 Unit/Ml Vial) 5,000 unit SUBCUT Q8H COUNTS INCLUDE 234 BEDS AT THE [facility] Last Admin: 10/10/23 08:25 Dose: 5,000 unit Documented By: LUIS FELIPE Insulin Human Lispro (Insulin Lispro 100 Unit/Ml 3 Ml Vial) 0 unit SUBCUT QIDACHS COUNTS INCLUDE 234 BEDS AT THE [facility]; Protocol Last Admin: 10/10/23 12:21 Dose: 2 unit Documented By: LUIS FELIPE Latanoprost (Latanoprost 0.005 % Ophth Vannessa 2.5 Ml Drops) 1 drop EYE-BOTH BEDTIME COUNTS INCLUDE 234 BEDS AT THE [facility] Last Admin: 10/09/23 22:19 Dose: 1 drop Documented By: ANASTASIA Pregabalin (Pregabalin 150 Mg Capsule) 150 mg PO BID COUNTS INCLUDE 234 BEDS AT THE [facility] Last Admin: 10/10/23 08:24 Dose: 150 mg Documented By: LUIS FELIPE Senna/Docusate Sodium (Sennosides/Docusate Sodium Tablet) 2 tab PO BEDTIME COUNTS INCLUDE 234 BEDS AT THE [facility] Last Admin: 10/09/23 22:20 Dose: 2 tab Documented By: ANASTASIA Tamsulosin HCl (Tamsulosin Hcl 0.4 Mg Capsule) 0.4 mg PO BEDTIME COUNTS INCLUDE 234 BEDS AT THE [facility] Vitamin D (Cholecalciferol (Vitamin D3) 25 Mcg Tablet) 50 mcg PO DAILY COUNTS INCLUDE 234 BEDS AT THE [facility] Last Admin: 10/10/23 08:24 Dose: 50 mcg Documented By: LUIS FELIPE Labs 10/10/23 06:07 10/10/23 06:07 Labs: Laboratory Results - last 24 hr 10/09/23 10/09/23 10/10/23 16:08 20:45 06:07 MCV 97.0 MCH 32.3 MCHC 33.3 RDW 14.5 Plt Count 341 MPV 9.7 Immature Gran % (Auto) 4.0 H Neut % (Auto) 66.4 Lymph % (Auto) 19.2 L [place] % (Auto) 7.7 Eos % (Auto) 2.0 Baso % (Auto) 0.7 Lymph # (Auto) 1.6 [place] # (Auto) 0.7 Eos # (Auto) 0.2 Baso # (Auto) 0.1 Abs Immat Gran (auto) 0.34 H Absolute Neuts (auto) 5.6 Absolute Nucleated RBC 0.000 Nucleated RBC % (auto) 0.0 Anion Gap 12 Estim Creat Clear Calc 83.1 Estimated GFR > 60 POC Glucose 190 H 167 H Random Glucose 158 H Estimat Average Glucose 163 Hemoglobin A1c % 7.3 H Calcium 8.3 L Random Vancomycin 10/10/23 10/10/23 10/10/23 07:21 10:50 11:35 MCV MCH MCHC RDW Plt Count MPV Immature Gran % (Auto) Neut % (Auto) Lymph % (Auto) [place] % (Auto) Eos % (Auto) Baso % (Auto) Lymph # (Auto) [place] # (Auto) Eos # (Auto) Baso # (Auto) Abs Immat Gran (auto) Absolute Neuts (auto) Absolute Nucleated RBC Nucleated RBC % (auto) Anion Gap Estim Creat Clear Calc Estimated GFR POC Glucose 200 H 197 H Random Glucose Estimat Average Glucose Hemoglobin A1c % Calcium Random Vancomycin 7.1 L 10/10/23 16:09 MCV MCH MCHC RDW Plt Count MPV Immature Gran % (Auto) Neut % (Auto) Lymph % (Auto) [place] % (Auto) Eos % (Auto) Baso % (Auto) Lymph # (Auto) [place] # (Auto) Eos # (Auto) Baso # (Auto) Abs Immat Gran (auto) Absolute Neuts (auto) Absolute Nucleated RBC Nucleated RBC % (auto) Anion Gap Estim Creat Clear Calc Estimated GFR POC Glucose 185 H Random Glucose Estimat Average Glucose Hemoglobin A1c % Calcium Random Vancomycin Assessment and Plan (1) Acute dehydration: Status: Acute Plan 77 Y M with hypertension, diabetes, BPH and prior urinary tract infections, presented from nursing facility on 10/05 with encephalopathy, found to be hypotensive, hypothermic, started on vasopressors; in ED, work-up with possible pneumonia, urinalysis appears traumatic, not floridly suggestive of urinary tract infection, BLAZE, and CT abdomen, pelvis suggsetive of proctocolitis. He was admitted through ICU for vasopressors and transfered to med floor on 10/08 patient intially Sepsis d/t proctocolitis with shock, shock resovled with IVF and vasopressors, has been treated with Cefepime,m Vanco and Flagyl. Leukocytosis resolved, no fever. patient denies any gi symptoms No fever blood culture grew Staphylococcus capitis which seems to be contaminant Seen by GI :proctocolitis on CT, but no clinical symptoms to suggest that at this time. Further workup outpatient unless patient has diarrhea again h/h stable around 8.3/25.4 range d/w ID: moniter off antibiotics. Possible initial presentation might be related to dehydration and BP medications. BLAZE d/t hypotension, resolved Cr nl Anemia, acute on chroni, GI eval , no indication for transfusion at this time Hypokalemia, replace and repeat tomorrow. Mag normal HLD resume statin HTN, resume home meds now that BP is high Diabetes-SSI, hold lantus and metformin for now. Sacrum and heel pressure area: 1. Turn and Reposition every 2 hours and as needed for patient comfort consider use of wedges available in the storeroom. 2. Off Load all bony prominences with use of pillows, wedges and heel boots. (Heels boots in place) 3. Monitor for incontinence and moisture control. 4. Provide adequate and supplemental nutrition. 5. Order low air loss mattress. 6. Maintain blood glucose levels per Providers orders. 7. Right Hip - Cleanse with NS, Pat dry. Cover wound bed with cut to size Durafiber AG - cover with foam dressing. Change Daily. 8. Sacrum - Off Load Pressure - Cleanse with PH balance spray, pat dry. ?Apply thin layer of Triad to wound bed - only pat and dab no scrub and rub when soiling occurs. Cover with foam dressing. Change daily. 9. Bilateral Heels and ankle - Off Load Pressure. Apply skin barrier wipe to DTI allow to dry. Place in off loading boot while in bed to lift off of bed surface. code DNR/DNI. DVT prophylaxis: heparin need for inaptient: IV Abx for proctocolitis, and exert eval Quality Stroke Does the patient have a stroke diagnosis?: No VTE Prior VTE?: No VTE Risk Level:: Medical - moderate - high VTE Device Contraindication: N/A - Device Ordered VTE Drug Contraindication: N/A - Med Ordered
--- NOTE | 2023-10-10 16:48 | P.CDIM_ITS ---
PROVIDER RESPONSE TEXT: To clarify, the appropriate diagnosis supported by the clinical indicators: Other QUERY TEXT: PHYSICIAN'S DOCUMENTATION REQUEST Date of Query: 10/09/2023 10:08 AM EST Patient Name: Juan Miguel Alvarado Admit Date: 10/05/2023 Dear Rola Ahn, A review of the medical record indicates additional documentation may be needed. Please review below and update the documentation accordingly. Clinical Indicators: Wound assessment notes dated 10/06 - Pressure injury coccyx Stage 3, present on arrival Beefy red, macerated Foam dressing applied Based on the above, could you please provide further information regarding the ulcer/wound: Pressure (decubitus) ulcer/injury coccyx Stage 3, present on arrival Other Other (explain) Clinically unable to determine (explain) Thank you, Li Guajardo, CCS, CDIS Use of terms such as suspected, likely, concern for, or probable (associated with a specific diagnosi s that is being evaluated, monitored, or treated as if it exists) are acceptable and can be coded in the inpatient se tting, when documented at the time of discharge. Please use your independent medical judgment in providing your response. THIS QUERY IS PART OF THE PERMANENT MEDICAL RECORD
--- NOTE | 2023-10-10 16:48 | P.CDIM_ITS ---
PROVIDER RESPONSE TEXT: To clarify, the appropriate diagnosis supported by the clinical indicators: Diabetes mellitus Type 2 with hyperglycemia, resolved QUERY TEXT: PHYSICIAN'S DOCUMENTATION REQUEST Date of Query: 10/10/2023 09:31 AM EST Patient Name: Juan Miguel Alvarado Admit Date: 10/05/2023 Dear Rola Ahn, A review of the medical record indicates additional documentation may be needed. Please review below and update the documentation accordingly. Clinical Indicators: LAB FINDINGS: 10/07 - POC glucose 306 H 173 H Insulin Please clarify the following regarding the Complications of Diabetes Mellitus (DM): Diabetes mellitus Type 2 with hyperglycemia, resolved No complications of DM Other (explain) Clinically unable to determine (explain) Thank you, Li Guajardo, CCS, CDIS Use of terms such as suspected, likely, concern for, or probable (associated with a specific diagnosi s that is being evaluated, monitored, or treated as if it exists) are acceptable and can be coded in the inpatient se tting, when documented at the time of discharge. Please use your independent medical judgment in providing your response. THIS QUERY IS PART OF THE PERMANENT MEDICAL RECORD
--- NOTE | 2023-10-10 16:52 | P.CDIM_ITS ---
PROVIDER RESPONSE TEXT: To clarify, the appropriate diagnosis supported by the clinical indicators: Other: b/l heel pressure QUERY TEXT: PHYSICIAN'S DOCUMENTATION REQUEST Date of Query: 10/10/2023 11:54 AM EST Patient Name: Juan Miguel Alvarado Admit Date: 10/05/2023 Dear Rola Ahn, A review of the medical record indicates additional documentation may be needed. Please review below and update the documentation accordingly. Clinical Indicators: Wound care notes dated 10/08 - Deep tissue injury bilateral heels Present on arrival Open to air Right heel/left heel, chronic wound/dry and intact. Based on the above, could you please provide further information regarding the ulcer/wound/injury: Deep tissue injury bilateral heels Other please specify Other (explain) Clinically unable to determine (explain) Thank you, Li Guajardo, CCS, CDIS Use of terms such as suspected, likely, concern for, or probable (associated with a specific diagnosi s that is being evaluated, monitored, or treated as if it exists) are acceptable and can be coded in the inpatient se tting, when documented at the time of discharge. Please use your independent medical judgment in providing your response. THIS QUERY IS PART OF THE PERMANENT MEDICAL RECORD
[2023-10-10] MEDS: Latanoprost 0.005 % Ophth Sol 2.5 ML DROPS 1 DROP EYE-BOTH (20:20)
[2023-10-10] MEDS: Tamsulosin HCL 0.4 MG CAPSULE PO (20:20)
[2023-10-10] MEDS: Sennosides/Docusate Sodium TABLET 2 TAB PO (20:20)
[2023-10-10 20:40] LABS: Glucose, Whole Blood 147 mg/dL (60-115)
[2023-10-11] MEDS: Heparin Sodium,Porcine 5,000 UNIT/ML VIAL 5000 UNIT SUBCUT ×2 (00:58→09:45)
[2023-10-11 03:40] VITALS: BP 128/61; PULSE 61; RESP 19; TEMP 36.9; O2SAT 95
[2023-10-11 06:48] LABS: MANUAL DIFF FLAG NO
[2023-10-11 06:53] LABS: Basophils Absolute Auto 0.1 X10*3/uL (0.0-0.2); Basophils Percent Auto 0.7 % (0-2); Eosinophils Absolute Auto 0.2 X10*3/uL (0.0-0.4); Eosinophils Percent Auto 1.8 % (0-4); Hematocrit 26.6 % (42.0-52.0); Hemoglobin 8.9 g/dl (14.0-18.0); Imm Gran Abs Auto 0.44 X10*3/uL (0.00-0.03); Imm Gran Pct Auto 4.2 % (0.0-0.4); Lymphocytes Absolute Auto 2.1 X10*3/uL (1.2-4.9); Mean Corpuscular HGB Conc 33.5 g/dl (31.0-36.0); Mean Corpuscular Hemoglobin 32.7 pg (27.0-33.0); Mean Corpuscular Volume 97.8 fL (80.0-98.0); Mean Platelet Volume 9.3 fL (9.4-12.4); Monocytes Absolute Auto 0.7 X10*3/uL (0.1-1.2); Monocytes Percent Auto 6.7 % (2-11); NRBC Pct Auto 0.2 /100WBC (0.0-0.2); Neutrophils Absolute Auto 6.9 x10*3/uL (2.0-8.3); Neutrophils Percent Auto 66.6 % (45-73); Platelet Count 317 X10*3/uL (160-400); Red Blood Count 2.72 X10*6/uL (4.60-5.80); Red Cell Distribution Width 14.5 % (11.0-16.0); White Blood Count 10.4 X10*3/uL (4.8-10.8)
[2023-10-11 07:09] LABS: Anion Gap 10 (12-20); Blood Urea Nitrogen 18 mg/dL (9-16); Calcium 8.1 mg/dL (8.4-10.2); Carbon Dioxide 28 mmol/L (22-29); Chloride 105 mmol/L (96-108); Creatinine Clr Calc Pharmacy 88.7; Estimated Glomerular Filt Rate > 60; Glucose Random 149 mg/dL (60-115); Potassium 3.4 mmol/L (3.3-5.1); Sodium 140 mmol/L (135-145)
[2023-10-11 07:29] VITALS: BP 156/69; PULSE 54; RESP 18; TEMP 36.6; O2SAT 94
[2023-10-11 07:37] LABS: Glucose, Whole Blood 139 mg/dL (60-115)
[2023-10-11 08:00] VITALS: BMI 22.0
[2023-10-11] MEDS: Atorvastatin Calcium 40 MG TABLET PO (09:46)
[2023-10-11] MEDS: Pregabalin 150 MG CAPSULE PO (09:46)
[2023-10-11] MEDS: Cholecalciferol (Vitamin D3) 25 MCG TABLET 50 MCG PO (09:46)
[2023-10-11] MEDS: amLODIPine Besylate 2.5 MG TABLET PO (09:46)
--- NOTE | 2023-10-11 10:22 | MHC.CM.PN ---
PT MEDICALLY CLEARED FOR DC BACK TO LTC AT [facility], [facility]. CM RECEIVED A CALL FROM PT'S SISTER/HCP SKYLA WHO IS AGREEABLE TO DC PLAN.
--- NOTE | 2023-10-11 11:06 | P.DS_ITS ---
DS: Providers Provider Date of Service: 10/11/23 Date of admission: 10/05/23 17:12 Date of discharge: 10/11/23 Primary care physician: Carlos A Sinclair MD Consults: 10/06/23 07:36 Consult to Wound Care Routine Reason for consultation: PI coccyx, SHERIF heels Has provider been notified: Yes 10/08/23 07:37 Consult to Gastroenterology Routine Consulting Provider: Ryan Wisdom Reason for consultation: Proctocolitis, Anemia 10/08/23 12:58 Consult to Infectious Diseases [place]ine [place] [facility] [place] Reason for consultation: bacteremia Has provider been notified: No 10/10/23 08:31 Consult to Wound Care Routine Reason for consultation: cocyx pressure Attending physician on discharge: Rola Anh Discharging clinician: Rola Ahn DS: Diagnosis Discharge Diagnosis (1) Acute dehydration: Status: Acute (2) Acute renal insufficiency: Status: Acute (3) Closed fracture of right hip: Status: Acute DS: Summary Hospital Course Hospital Course: 77 Y M with hypertension, diabetes, BPH and prior urinary tract infections, presenting from nursing facility with encephalopathy, found to be hypotensive, hypothermic, started on vasopressors; in ED, work-up with possible pneumonia, urinalysis appears traumatic, not floridly suggestive of urinary tract infection, and CT abdomen, pelvis suggsetive of proctocolitis. Hospital course:Patient with multiple comorbidities initially admitted to the hospital because of hypotension, dehydration , thought to be sepsis due to proctocolitis-patient was initially in ICU required vasopressor and broad- spectrum antibiotics-subsequently if leukocytosis fever resolved, blood culture grew Staphylococcus capitis which thought to be contaminant. Discussed with the Infectious Disease in detail length: Likely initial presentation is more due to dehydration and possibly blood pressure medications might have contributed for hypertension, less likely proctocolitis-subsequently antibiotics were stopped ,patient was observed off antibiotics, improving, denying any new complaints. Mental status is near his baseline. BLAZE and dehydration improved with IV fluids and improved p.o. intake. In addition for htn: stopped Cardizem, started on low-dose amlodipine, monitor blood pressure closely and if needed adjust amlodipine as per blood pressure. Diabetes: Controlled, hemoglobin A1c 7.3, will stop Lantus, continue metformin and sliding scale coverage in rehab. In addition patient was seen by wound care( sacral,heel pressure present on admission): Please see recommendation below. 1. Turn and Reposition every 2 hours and as needed for patient comfort consider use of wedges available in the storeroom. 2. Off Load all bony prominences with use of pillows, wedges and heel boots. (Heels boots in place) 3. Monitor for incontinence and moisture control. 4. Provide adequate and supplemental nutrition. 5. Order low air loss mattress. 6. Maintain blood glucose levels per Providers orders. 7. Right Hip - Cleanse with NS, Pat dry. Cover wound bed with cut to size Durafiber AG - cover with foam dressing. Change Daily. 8. Sacrum - Off Load Pressure - Cleanse with PH balance spray, pat dry. ?Apply thin layer of Triad to wound bed - only pat and dab no scrub and rub when soiling occurs. Cover with foam dressing. Change daily. 9. Bilateral Heels and ankle - Off Load Pressure. Apply skin barrier wipe to DTI allow to dry. Place in off loading boot while in bed to lift off of bed surface. Also patient had recent hip surgery: Followed up by orthopedics [facility] deep incision site opening proximal incision site, recommended:Daily sterile dressing changes ,No acute orthopedic intervention needed at this time ,No signs of infection . plan: moniter blood pressure and fs closely stopped Cardizem, started on low-dose amlodipine, monitor blood pressure closely and if needed adjust amlodipine as per blood pressure. hemoglobin A1c 7.3, will stop Lantus, continue metformin and sliding scale coverage in rehab. wound care as above. consider follow up with wound care and orthopedics outpatient. Above management discussed with patient's family Mr. Hodge in detail length she understand and in agreement with above plan, time spent 50 minute. Time Attestation Discharge coordination time: Greater than 30 minutes Quality: Safe Use of Opioids Does Pt have an Active Cancer Diagnosis on the Problem List?: No Quality: Stroke Does the patient have a stroke diagnosis?: No Physical Exam Vital Signs: Vital Signs: Last Vital Signs Temp 97.9 F 10/11/23 07:29 Pulse 54 10/11/23 07:29 Resp 18 10/11/23 07:29 BP 156/69 H 10/11/23 07:29 Pulse Ox 94 10/11/23 07:29 O2 Del Method Room Air 10/11/23 07:29 O2 Flow Rate 3 10/08/23 06:00 FiO2 98 10/09/23 07:54 BMI result Body Mass Index 22.0 Appearance: Alert.? Oriented X3. cvs: rrr, [id number] , no murmur res: clear to auscultation ,no rhonchii or wheezing abd: no rebound or guarding ,nt, bs present. ext pulses present , no cyanosis. sacrum:Unstageable Pressure Injury Present on Admission heel pressure area . hip incision area-clean ,No active drainage or surrounding erythema. No signs of infection. neuro: axo3 , nonfocal. DS: Data Data Completed and Pending Completed studies during hospitalization [Text1]: Procedures Replacement of Right Hip Joint, Femoral Surface with Synthetic Substitute, Uncemented, Open Approach (09/17/23) Labs on day of discharge: Laboratory Results - last 24 hr 10/10/23 10/10/23 10/10/23 10:50 11:35 16:09 WBC RBC Hgb Hct MCV MCH MCHC RDW Plt Count MPV Immature Gran % (Auto) Neut % (Auto) Lymph % (Auto) [place] % (Auto) Eos % (Auto) Baso % (Auto) Lymph # (Auto) [place] # (Auto) Eos # (Auto) Baso # (Auto) Abs Immat Gran (auto) Absolute Neuts (auto) Absolute Nucleated RBC Nucleated RBC % (auto) Sodium Potassium Chloride Carbon Dioxide Anion Gap BUN Creatinine Estim Creat Clear Calc Estimated GFR POC Glucose 197 H 185 H Random Glucose Calcium Random Vancomycin 7.1 L 10/10/23 10/11/23 10/11/23 20:31 06:37 07:30 WBC 10.4 RBC 2.72 L Hgb 8.9 L Hct 26.6 L MCV 97.8 MCH 32.7 MCHC 33.5 RDW 14.5 Plt Count 317 MPV 9.3 L Immature Gran % (Auto) 4.2 H Neut % (Auto) 66.6 Lymph % (Auto) 20.0 [place] % (Auto) 6.7 Eos % (Auto) 1.8 Baso % (Auto) 0.7 Lymph # (Auto) 2.1 [place] # (Auto) 0.7 Eos # (Auto) 0.2 Baso # (Auto) 0.1 Abs Immat Gran (auto) 0.44 H Absolute Neuts (auto) 6.9 Absolute Nucleated RBC 0.020 H Nucleated RBC % (auto) 0.2 Sodium 140 Potassium 3.4 Chloride 105 Carbon Dioxide 28 Anion Gap 10 L BUN 18 H Creatinine 0.66 Estim Creat Clear Calc 88.7 Estimated GFR > 60 POC Glucose 147 H 139 H Random Glucose 149 H Calcium 8.1 L Random Vancomycin Imaging Chest x-ray: Radiologist's impression: ITS Impressions Chest X-Ray 10/05/23 14:33 IMPRESSION: Question small infiltrate at the left lung base. Right jugular line projects over SVC. No pneumothorax. Abdomen/Pelvis CT 10/05/23 16:37 IMPRESSION: Proctocolitis. Right hip replacement. No surrounding abnormal air or fluid collection. Srinivasan catheter in the bladder. Slightly enlarged prostate gland. Fleischner guidelines were followed. Discharge Plan Discharge Anticipated Discharge Date/Time: 10/11/23 10:53 Patient Disposition: Xfer SNF Discharge Diagnosis: blaze ,hypotension ,dehydration [facility] [place] [facility] ([facility]) Carlos A Sinclair MD [Primary Care Provider] - 1 Week Discharge Medications: New amlodipine 2.5 mg Tablet 2.5 mg PO DAILY Qty: 30 0RF Protocol: Hold for SBP< HOLD for SBP < : 90 Continued latanoprost 0.005 % Drops 1 drp OPHTHALMIC (EYE) BEDTIME atorvastatin 40 mg Tablet 40 mg PO DAILY sennosides-docusate sodium [Senna-S] 8.6-50 mg Tablet 2 tab-cap PO BEDTIME alfuzosin 10 mg Tablet Extended Release 24 Hr 10 mg PO DAILY Rx Instructions: administer after the same meal each day pregabalin 150 mg Capsule 150 mg PO BID cholecalciferol (vitamin D3) 25 mcg (1,000 unit) Tablet 50 mcg PO DAILY enoxaparin 40 mg/0.4 mL Syringe 40 mg subcut Q24H 42 Days Qty: 16.8 0RF oxycodone 5 mg Tablet 5 mg PO Q6H PRN (Reason: Pain, Moderate(Pain Scale 4-6)) Qty: 14 0RF Rx Instructions: Partial Fill upon patient request. insulin lispro [Humalog U-100 Insulin] 100 unit/mL Solution See Protocol subcut QIDACHS Qty: 10 0RF Protocol: Insulin Correction Scale Less than or equal to 110 ---- Give (units): 0 111 to 150 Give (units): 0 151 to 200 Give (units): 2 201 to 250 Give (units): 4 251 to 300 Give (units): 6 301 to 350 Give (units): 8 Greater than 350 Give (units): 10 Call MD if Blood Glucose > : 350 metformin 500 mg Tablet Extended Release 24 Hr 500 mg PO DAILY Discontinued diltiazem HCl [Cardizem LA] 240 mg Tablet Extended Release 24 Hr 240 mg PO DAILY insulin glargine [Lantus U-100 Insulin] 100 unit/mL Solution 25 unit subcut DAILY Qty: 10 0RF Discharge Orders: Discharge Order (Routine); Ordered 10/11/23 Ordered By: Rola Ahn Diet: Advance to usual diet Activity on Discharge: As tolerated Stand Alone Forms: Patient Portal Discharge page Care Plan Goals: Patient with multiple comorbidities initially admitted to the hospital because of hypotension, dehydration , thought to be sepsis due to proctocolitis-patient was initially in ICU required vasopressor and broad-spectrum antibiotics- subsequently if leukocytosis fever resolved, blood culture grew Staphylococcus capitis which thought to be contaminant. Discussed with the Infectious Disease in detail length: Likely initial presentation is more due to dehydration and possibly blood pressure medications might have contributed for hypertension, less likely proctocolitis-subsequently antibiotics were stopped ,patient was observed off antibiotics, improving, denying any new complaints. Mental status is near his baseline. BLAZE and dehydration improved with IV fluids and improved p.o. intake. In addition we stopped Cardizem, started on low-dose amlodipine, monitor blood pressure closely and if needed adjust amlodipine as per blood pressure. Diabetes: Controlled, hemoglobin A1c 7.3, will stop Lantus, continue metformin and sliding scale coverage in rehab. In addition patient was seen by wound care: Please see recommendation below. Also patient had recent hip surgery: Followed up by orthopedics [facility] deep incision site opening proximal incision site, recommended:Daily sterile dressing changes ,No acute orthopedic intervention needed at this time ,No signs of infection . Above management discussed with patient's family Mr. Hodge in detail length she understand and in agreement with above plan, time spent 50 minute. Health Concerns: As above. Plan of Treatment: As above. Assessment: As above.
[2023-10-11 11:20] VITALS: BP 146/68; PULSE 55; RESP 18; TEMP 36.8; O2SAT 96
[2023-10-11 11:39] LABS: Glucose, Whole Blood 183 mg/dL (60-115)
[2023-10-11] MEDS: Insulin Lispro 100 UNIT/ML 3 ML VIAL SUBCUT (12:03)
--- NOTE | 2023-10-11 13:40 | MHC.SL.SWA ---
Speech Pathologist Impression: Risk of Aspiration Due to: Reduced Cognition Dysphasia Diet Status: Recommend patient continue on current diet of NDD2 with Thin Liquids, pills crushed in puree. Liquid Consistency and Strategies for Safe Swallow: Liquid Intake Recommendation: Thin Liquid Intake Strategies: Unrestricted Solid Food Consistency: Dietary Recommendations: Grnd/Mech Altered (NDD2) Additional Modifications to Solid Foods: Oral Medication Intake: Crushed with Puree Please contact the pharmacy regarding appropriate crushable or liquid drug formulations that are available whenever modified delivery is recommended. Compensatory Strategies and Precautions to be Taken for Safe Swallow: Sitting Upright (90 deg) Small Bites and Sips Alternate Liquids/Solids Supervision While Eating and Drinking for Safe Swallow: Total Supervision (1:1) Foods to Avoid: Avoid difficult to chew solids given altered mental status. Swallowing Recommended Treatments: Compens. Strategy Educat. Recommendation for Speech: Inpatient Speech Therapy Comment: Patient was seen at lunch. Patient was seated upright in bed, already eating lunch, although at onset, patient was finishing eating ice cream that came with meal. Small amounts of the main meal had already been consumed, however most was still on tray. Patient was willing to take more of the food from the tray, and was observed taking bites of ground meat and mashed potatoes, producing a mildly prolonged oral phase with slow mastication of the ground meat, followed by timely swallow. Patient was also observed taking sips of jeremy kiana by straw, again with timely swallow and no clinical signs of aspiration. Patient ate approximately half the food on tray, then stated he was done, with food removed to table, drink remaining on tray for patient to finish. Per RN who was consulted after, patient is doing generally well, however has episodes of pocketing when given his meds, requiring cuing to swallow. Recommend patient continue on current diet of NDD2 with Thin Liquids, pills crushed in puree. EXPLORATION MANAGER will continue to follow. Encourage alternating bites/sips to facilitate oral clearance. Frequency/Duration: Date Range for Service Req: Timeline to reassess: PRN Ice Hockey Coach Clinican/Clinical Fellow: No Supervisory Statement: I have reviewed and agree with the student/clinical fellow's documentation: N/A Speech Language Pathologist: Faith Pardo M.A., CCC-EXPLORATION MANAGER
== END 2023-10-11 13:34 | disposition skilled nursing facility (03) | DRG 871 ==
LOC: HO.ED 15:48 → HO.EDOVER 17:18 → HO.ICU 17:33 → HO.IMC 10-08 05:50
PROVIDERS: Internal Medicine; Internal Medicine Pulmonary Disease; Admitting Provider Internal Medicine Critical Care Medicine; Emergency Provider Emergency Medicine; PCP Family Medicine Geriatric Medicine; Visit Provider Internal Medicine
DX: A41.9 Sepsis, unspecified organism (principal); J18.9 Pneumonia, unspecified organism; R65.21 Severe sepsis with septic shock; N17.9 Acute kidney failure, unspecified; Z66 Do not resuscitate; E78.5 Hyperlipidemia, unspecified; E86.0 Dehydration; N40.0 Benign prostatic hyperplasia without lower urinary tract symptoms; E87.6 Hypokalemia; E11.40 Type 2 diabetes mellitus with diabetic neuropathy, unspecified; L89.626 Pressure-induced deep tissue damage of left heel; L89.616 Pressure-induced deep tissue damage of right heel; L89.526 Pressure-induced deep tissue damage of left ankle; L89.516 Pressure-induced deep tissue damage of right ankle; L89.150 Pressure ulcer of sacral region, unstageable; F03.90 Unspecified dementia, unspecified severity, without behavioral disturbance, psychotic disturbance, mood disturbance, and anxiety; Z20.822 Contact with and (suspected) exposure to COVID-19; Z79.4 Long term (current) use of insulin; Z79.84 Long term (current) use of oral hypoglycemic drugs; Z79.899 Other long term (current) drug therapy
CPT/HCPCS: 0241U; 36415; 71045; 74176; 80048; 80202; 81001; 82040; 82247; 82607; 82728; 82746; 82803; 82947; 83036; 83540; 83605; 83735; 84100; 84439; 84443; 85025; 85610; 85730; 86850; 86900; 86901; 87040; 87077; 87186; 87205; 87507; 92526; 92610; 92950; 93005; 99285; C1758; J0692; J1644; J1720; J1836; J2543; J2598; J3370; J3371; J7120; P9047

== ENCOUNTER → 2023-10-05 17:12 | Outpatient (BNV) | payer OTHER, SELFPAY | PROVIDERS: Admitting Provider Internal Medicine Critical Care Medicine; Emergency Provider Emergency Medicine; PCP Family Medicine Geriatric Medicine; Visit Provider Physician Assistant | DX: S72.001A Fracture of unspecified part of neck of right femur, initial encounter for closed fracture (principal) | CPT/HCPCS: 99231 ==

== ENCOUNTER → 2023-10-05 17:12 | Outpatient (BNV) | payer OTHER, SELFPAY | PROVIDERS: Admitting Provider Internal Medicine Critical Care Medicine; Emergency Provider Emergency Medicine; PCP Family Medicine Geriatric Medicine; Visit Provider Internal Medicine | DX: E86.0 Dehydration (principal); N28.9 Disorder of kidney and ureter, unspecified; S72.001A Fracture of unspecified part of neck of right femur, initial encounter for closed fracture | CPT/HCPCS: 99231; 99232; 99239 ==

== ENCOUNTER → 2023-10-05 17:12 | Outpatient (BNV) | payer OTHER, SELFPAY | PROVIDERS: Admitting Provider Internal Medicine Critical Care Medicine; Emergency Provider Emergency Medicine; PCP Family Medicine Geriatric Medicine; Visit Provider Internal Medicine Critical Care Medicine | DX: A41.9 Sepsis, unspecified organism (principal); R65.21 Severe sepsis with septic shock; N28.9 Disorder of kidney and ureter, unspecified; K52.9 Noninfective gastroenteritis and colitis, unspecified | CPT/HCPCS: 99291; 99292 ==

== ENCOUNTER 2023-11-01 12:04 | Outpatient (AMB) | payer OTHER, SELFPAY ==
--- NOTE | 2023-11-01 12:33 | A.OFFVIS_ITS ---
Intake Vital Signs 11/01/23 12:51 Height 5 ft 8 in Weight 144 lb BMI 21.9 Intake Visit Reasons: Closed fracture of rt hip DOS 09/20/23 Ne Intake Note: Juan Miguel a 77 year old male presents today in a wheelchair for a post operative right hip jeyson, DOS 09/20/23 NE. Patient reports he has very little pain. Allergies No Known Allergies Allergy (Unverified 11/01/23 12:52) HPI Closed fracture of rt hip DOS 09/20/23 Ne HPI Details 77-year-old male who returns to the [facility] today for post-op right hip hemiarthroplasty, 09/20/[address] Kay. He states he has minimal pain and is doing well overall. He continues to work with physical therapy and occupational therapy as instructed. He has no other concerns today. [facility] Medical History BPH (benign prostatic hyperplasia) History of UTI Hypertension Neuropathy Diabetes Social History Household Members: None Housing: Long Term Do you presently have visiting nurse or other home services: No Unable to assess alcohol history related to: Unable to respond and Unknown Alcohol intake: never Comment: FELL IN [place] Patient Tobacco Use Status: Never used Tobacco Tobacco use type: Cigarette Cigarette Packs Per Day: 1 Cigarettes Per Day: 9 Years Smoked: 50 e-Cigarette/Vaping Use: Never Used Second Hand Smoke Exposure: Yes Advance Directives Date on File: 07/24/23 service: Yes Current occupational status: retired Review of Systems Const All systems reviewed & are unremarkable except as noted in HPI and below Physical Exam Vital Signs: BMI result Body Mass Index 21.9 Extrem Other: Right hip: Incision clean, dry and intact. No pain with rom of hip no pain with hip flexion. Results Reviewed Results Reviewed: Xrays were obtained in the office today and personally reviewed by me of the right hip show intact prosthesis Assessment & Plan Assessment & Plan (1) Closed fracture of right hip: Code(s): S72.001A - Fracture of unspecified part of neck of right femur, initial encounter for closed fracture Qualifiers: Encounter type: initial encounter Qualified Code(s): S72.001A - Fracture of unspecified part of neck of right femur, initial encounter for closed fracture Plan He will continue to work with physical therapy and occupational therapy. He is weight bearing as tolerated. I would like to see him back in 6 weeks with x- rays, sooner if needed. Orders: Orders XR hip RT w PEL1V Today M25.559 - Pain in unspecified hip Patient Instructions: Scribed for Jacob Irby PA-C, by Luis Tyson medical social consultant, on 11/01/2023 at 12:30 PM EST. I, Jacob Irby PA-C, have personally reviewed and agree with the information entered by the scribe. Coding Level of Care Code Global (08357) Diagnoses Closed fracture of right hip S72.001A Encounter type: initial encounter
[2023-11-01 12:51] VITALS: BMI 21.9
== END 2023-11-01 13:39 | disposition home or self-care (01) ==
PROVIDERS: PCP Family Medicine Geriatric Medicine; Visit Provider Physician Assistant
DX: S72.001A Fracture of unspecified part of neck of right femur, initial encounter for closed fracture (principal)
CPT/HCPCS: 99024

== ENCOUNTER 2023-11-01 12:38 | Outpatient (REF) | payer OTHER, SELFPAY ==
--- NOTE | ~2023-11-01 | XR_ITS ---
EXAMINATION: XR HIP, RIGHT CLINICAL INFORMATION: Pain and unspecified hips. COMPARISON: 10/04/2023 right hip, 09/17/2023 right hip. TECHNIQUE: AP view of the pelvis as well as AP and crosstable lateral views of the right hip. FINDINGS: The bones are diffusely demineralized. Degenerative changes in the imaged lower lumbar spine. Moderate degenerative changes in the bilateral sacroiliac joints and left hip. Extensive vascular calcifications. Status post right total hip arthroplasty. Hardware appears intact. Evaluation is difficult on the crosstable lateral view due to overlying bone and soft tissues. XR/XR hip RT w PEL1V IMPRESSION: Status post right total hip arthroplasty. Hardware appears intact.
== END 2023-11-01 12:39 | disposition home or self-care (01) ==
LOC: HO.HOSX 12:38
PROVIDERS: Visit Provider Physician Assistant
DX: S72.001D Fracture of unspecified part of neck of right femur, subsequent encounter for closed fracture with routine healing (principal); X58.XXXD Exposure to other specified factors, subsequent encounter; Z98.890 Other specified postprocedural states
CPT/HCPCS: 73502; 99212

== ENCOUNTER 2023-11-19 13:43 | Emergency (ER) | payer OTHER, SELFPAY ==
--- NOTE | ~2023-11-19 | XR_ITS ---
EXAMINATION: XR CHEST CLINICAL INFORMATION: Cough COMPARISON: Prior chest September 2023 TECHNIQUE: Frontal view of the chest was obtained. FINDINGS: No significant abnormality is noted involving the heart, lungs, mediastinum, bony thorax or soft tissues. XR/XR chest 1V IMPRESSION: Unremarkable examination.
[2023-11-19 13:50] VITALS: BP 116/73; PULSE 120; O2SAT 99
[2023-11-19 13:54] VITALS: BP 94/58; PULSE 110; RESP 19; TEMP 38.1; O2SAT 97; BMI 21.0
--- NOTE | 2023-11-19 13:57 | ED.GENADULT ---
HPI - General Adult General Chief complaint: General Medical Stated complaint: AMS, INCREASING WEAKNESS PER EMS Time Seen by Provider: 11/19/23 13:57 History of Present Illness HPI narrative: The patient is a 77-year-old male with a history of significant dementia who lives chronically at a intermediate. Sister is his healthcare proxy. Apparently he has been less well than usual for the last 2 days with increasing weakness and decreasing responsiveness. Here he was found to have a temperature of 100.6 degrees. The patient himself is quite demented and is not giving any additional history. I spoke to the patient's sister who is his healthcare proxy. The patient has a MOLST form which indicates that he has DNR/DNI. Additionally the form goes on to indicate that the patient should not receive noninvasive ventilation or be transferred to hospital unless needed for comfort. I contacted the patient's sister. Her name is [email or web address] Rodriguez. She signed the MOLST form on 07/25/2023. The she says that she did not sign that form with the intention of the patient not receiving treatment at the emergency room and wishes us to proceed with possible evaluation of an infection. Related Data Home Medications Medication Instructions Recorded Confirmed alfuzosin 10 mg tablet,extended 10 mg PO DAILY 02/23/23 10/05/23 release 24 hr atorvastatin 40 mg tablet 40 mg PO DAILY 02/23/23 10/05/23 latanoprost 0.005 % eye drops 1 drp ophthalmic (eye) BEDTIME 02/23/23 10/05/23 pregabalin 150 mg capsule 150 mg PO BID 02/23/23 10/05/23 sennosides 8.6 mg-docusate sodium 2 tab-cap PO BEDTIME 02/23/23 10/05/23 50 mg tablet (Senna-S) cholecalciferol (vitamin D3) 25 50 mcg PO DAILY 09/17/23 10/05/23 mcg (1,000 unit) tablet metformin 500 mg tablet,extended 500 mg PO DAILY 10/05/23 10/05/23 release 24 hr Previous Rx's Medication Instructions Recorded enoxaparin 40 mg/0.4 mL 40 mg (0.4 mL) subcut Q24H 42 days 09/21/23 subcutaneous syringe #16.8 mL insulin lispro 100 unit/mL See Protocol subcut QIDACHS #10 mL 09/21/23 subcutaneous solution (Humalog U-100 Insulin) oxycodone 5 mg tablet 5 mg PO Q6H PRN Pain, 09/21/23 Moderate(Pain Scale 4-6) #14 tabs amlodipine 2.5 mg tablet 2.5 mg PO DAILY #30 tabs 10/11/23 cephalexin 500 mg capsule 500 mg PO BID #10 caps 11/19/23 nirmatrelvir 300 mg (150 mg See Rx Instructions PO .COMPLEX 11/19/23 x2)-ritonavir 100 mg tablet,dose #30 ea pack (Paxlovid) Allergies Allergy/AdvReac Type Severity Reaction Status Date / Time No Known Allergies Allergy Unverified 11/01/23 12:52 Review of Systems Review of Systems: Yes Unobtainable due to mental status [facility] Past Medical History Medical History BPH (benign prostatic hyperplasia) History of UTI Hypertension Neuropathy Diabetes Social History Social History Household Members: None Housing: Senior Living Do you presently have visiting nurse or other home services: No Unable to assess alcohol history related to: Unable to respond and Unknown Alcohol intake: never Comment: FELL IN [facility] Patient Tobacco Use Status: Never used Tobacco Tobacco use type: Cigarette Cigarette Packs Per Day: 1 Cigarettes Per Day: 9 Years Smoked: 50 Smoked in Last 30 Days: No e-Cigarette/Vaping Use: Never Used Second Hand Smoke Exposure: Yes Use of substances other than those prescribed or required for medical reasons: No Advance Directives: Yes Advance Directives on File: Yes Advance Directives Date on File: 07/24/23 service: Yes Current occupational status: retired Physical Exam ED Vital Signs: Vital Signs - 24 hr 11/19/23 13:54 11/19/23 16:35 11/19/23 16:59 Temperature 100.6 F H 99.3 F Pulse Rate 110 H 96 97 Respiratory Rate 19 16 18 Blood Pressure 94/58 L 99/47 L 106/37 L Pulse Oximetry 97 95 97 Oxygen Delivery Method Room Air Room Air 11/19/23 17:03 11/19/23 19:04 Temperature 100.4 F 99.8 F Pulse Rate 93 Respiratory Rate 17 Blood Pressure 101/42 L Pulse Oximetry 94 Oxygen Delivery Method Room Air BMI result Body Mass Index 21.0 Const Other: The patient is awake and is not very alert. He is able to tell me his name but really does not say much else at all although he denied being in pain at all. He seems quite demented and quite chronically ill. HENMT Other: Face is symmetrical. Mucous membranes moist. Eyes Other: Pupils are small, round, and equal. Conjunctivae are clear, extraocular movements seem intact. Neck Other: No JVD Resp Other: Lungs are clear. No crackles. Cardio Other: The patient is mildly tachycardic. Regular rate and rhythm no murmur GI Other: The abdomen is nontender. Skin Other: The skin is mostly unremarkable. However the patient does have some chronic wounds on the feet that seemed to be pressure related. These are appropriately dressed. No sign of cellulitis. Neuro Other: The patient is awake and seems alert. He has a paucity of speech consistent with significant dementia. His face is trickle. He does not seem to have any focal findings. Medications Administered Discontinued Medications Generic Name Dose Route Start Last Admin Trade Name Freq PRN Reason Stop Dose Admin Sodium Chloride 1,000 mls @ 999 mls/hr 11/19/23 14:15 11/19/23 17:54 Ns IV 11/19/23 15:15 Infused .Q1H1M YULIANA Infusion Ceftriaxone Sodium 1 gm/ 50 mls @ 100 mls/hr 11/19/23 17:37 11/19/23 18:32 Sodium Chloride IV 11/19/23 18:06 Infused ONCE ONE Infusion Sodium Chloride 1,000 mls @ 999 mls/hr 11/19/23 17:45 11/19/23 17:53 Ns IV 11/19/23 18:45 999 mls/hr .Q1H1M YULIANA Administration Medical Decision Making Medical Decision Making MDM Narrative: The patient is a 77-year-old male with history of dementia who lives at a intermediate chronically. His sister is his healthcare proxy. Apparently he has seemed weaker and less alert than usual over the last 2 days. The patient's MOLST form indicated that the patient is DNR/DNI. Also indicated that the patient should only be transferred to hospital for reasons of comfort. I called the patient's sister to ask what her goals were. She told me that she would like the patient evaluated and treated for any infectious process apparent. The patient was therefore evaluated here. He has been found to have COVID. Additionally his urinalysis is mildly suggestive of a possible UTI. The patient was therefore given 1 g of IV ceftriaxone. He also may be somewhat dehydrated so he was given 2 L of IV normal saline. Otherwise the patient seemed hemodynamically stable and did not seem to require hospitalization. He will be returned to his nursing facility with a prescription for Paxlovid for COVID and a prescription for cephalexin for possible UTI. I contacted the patient's sister a 2nd time to update her on the patient's evaluation. With regard to the prescription for Paxlovid I included instructions that the patient's atorvastatin, amlodipine, and alfuzosin held while he is on Paxlovid and 3 additional days after the end of the Paxlovid. Lab Data 11/19/23 16:06 11/19/23 16:06 Labs: Lab Results 11/19/23 11/19/23 11/19/23 Range/Units 16:06 16:07 16:15 WBC 10.1 (4.8-10.8) X10*3/uL RBC 3.23 L (4.60-5.80) X10*6/uL Hgb 10.3 L (14.0-18.0) g/dl Hct 31.2 L (42.0-52.0) % MCV 96.6 (80.0-98.0) fL MCH 31.9 (27.0-33.0) pg MCHC 33.0 (31.0-36.0) g/dl RDW 14.5 (11.0-16.0) % Plt Count 269 (160-400) X10*3/uL MPV 9.6 (9.4-12.4) fL Immature Gran % (Auto) 0.8 H (0.0-0.4) % Neut % (Auto) 81.2 H (45-73) % Lymph % (Auto) 8.4 L (20-40) % Winona % (Auto) 9.1 (2-11) % Eos % (Auto) 0.0 (0-4) % Baso % (Auto) 0.5 (0-2) % Lymph # (Auto) 0.9 L (1.2-4.9) X10*3/uL Winona # (Auto) 0.9 (0.1-1.2) X10*3/uL Eos # (Auto) 0.0 (0.0-0.4) X10*3/uL Baso # (Auto) 0.1 (0.0-0.2) X10*3/uL Abs Immat Gran (auto) 0.08 H (0.00-0.03) X10*3/uL Absolute Neuts (auto) 8.2 (2.0-8.3) x10*3/uL Absolute Nucleated RBC 0.000 (0.0-0.012) X10*3/uL Nucleated RBC % (auto) 0.0 (0.0-0.2) /100WBC Hold Purple Top SEE NOTE PT 12.5 (11.1-13.3) SEC INR 1.0 (0.9-1.1) Sodium 139 (135-145) mmol/L Potassium 4.0 (3.3-5.1) mmol/L Chloride 103 (96-108) mmol/L Carbon Dioxide 26 (22-29) mmol/L Anion Gap 14 (12-20) BUN 18 H (9-16) mg/dL Creatinine 0.85 (0.5-1.4) mg/dL Estim Creat Clear Calc 61.6 Estimated GFR > 60 Random Glucose 141 H (60-115) mg/dL Lactic Acid 1.5 (0.5-2.0) mmol/L Calcium 9.1 D (8.4-10.2) mg/dL Magnesium 1.9 (1.6-2.6) mg/dL Total Bilirubin 0.4 (0.0-1.0) mg/dL Direct Bilirubin 0.2 (0.0-0.5) mg/dL AST 25 (5-37) U/L ALT 13 (0-40) U/L Alkaline Phosphatase 112 (39-117) U/L C-Reactive Protein 5.12 H (< or = 0.50) mg/dL B-Natriuretic Peptide 51 (<100) pg/mL Total Protein 6.9 (6.5-8.0) g/dL Albumin 3.4 L (3.5-5.0) g/dL Urine Color Urine Appearance Urine pH (5.0-9.0) Ur Specific Rodney (1.005-1.025) Urine Protein (Neg-Trace) mg/dL Urine Glucose (UA) (Negative) mg/dL Urine Ketones (Negative) mg/dL Urine Blood (Negative) Urine Nitrite (Negative) Ur Leukocyte Esterase (Negative) Urine RBC (0-2) /HPF Urine WBC (0-5) /HPF Ur Squamous Epith Cells (0-2) /HPF Urine Bacteria (None Seen) Hyaline Casts (0-2) /LPF Influenza Type A (PCR) NEGATIVE (Negative) Influenza Type B (PCR) NEGATIVE (Negative) RSV RNA Qual (PCR) NEGATIVE (Negative) SARS-CoV-2 RNA (RT-PCR) POSITIVE A (Negative) 11/19/23 Range/Units 16:58 WBC (4.8-10.8) X10*3/uL RBC (4.60-5.80) X10*6/uL Hgb (14.0-18.0) g/dl Hct (42.0-52.0) % MCV (80.0-98.0) fL MCH (27.0-33.0) pg MCHC (31.0-36.0) g/dl RDW (11.0-16.0) % Plt Count (160-400) X10*3/uL MPV (9.4-12.4) fL Immature Gran % (Auto) (0.0-0.4) % Neut % (Auto) (45-73) % Lymph % (Auto) (20-40) % Winona % (Auto) (2-11) % Eos % (Auto) (0-4) % Baso % (Auto) (0-2) % Lymph # (Auto) (1.2-4.9) X10*3/uL Winona # (Auto) (0.1-1.2) X10*3/uL Eos # (Auto) (0.0-0.4) X10*3/uL Baso # (Auto) (0.0-0.2) X10*3/uL Abs Immat Gran (auto) (0.00-0.03) X10*3/uL Absolute Neuts (auto) (2.0-8.3) x10*3/uL Absolute Nucleated RBC (0.0-0.012) X10*3/uL Nucleated RBC % (auto) (0.0-0.2) /100WBC Hold Purple Top PT (11.1-13.3) SEC INR (0.9-1.1) Sodium (135-145) mmol/L Potassium (3.3-5.1) mmol/L Chloride (96-108) mmol/L Carbon Dioxide (22-29) mmol/L Anion Gap (12-20) BUN (9-16) mg/dL Creatinine (0.5-1.4) mg/dL Estim Creat Clear Calc Estimated GFR Random Glucose (60-115) mg/dL Lactic Acid (0.5-2.0) mmol/L Calcium (8.4-10.2) mg/dL Magnesium (1.6-2.6) mg/dL Total Bilirubin (0.0-1.0) mg/dL Direct Bilirubin (0.0-0.5) mg/dL AST (5-37) U/L ALT (0-40) U/L Alkaline Phosphatase (39-117) U/L C-Reactive Protein (< or = 0.50) mg/dL B-Natriuretic Peptide (<100) pg/mL Total Protein (6.5-8.0) g/dL Albumin (3.5-5.0) g/dL Urine Color Dark Yellow Urine Appearance Clear Urine pH 5.0 (5.0-9.0) Ur Specific Rodney >= 1.030 H (1.005-1.025) Urine Protein Trace (Neg-Trace) mg/dL Urine Glucose (UA) Negative (Negative) mg/dL Urine Ketones Trace (Negative) mg/dL Urine Blood Large (3+) H (Negative) Urine Nitrite Positive H (Negative) Ur Leukocyte Esterase Trace H (Negative) Urine RBC >20 H (0-2) /HPF Urine WBC 6-10 H (0-5) /HPF Ur Squamous Epith Cells 0-2 (0-2) /HPF Urine Bacteria 3+ (None Seen) Hyaline Casts 0-2 (0-2) /LPF Influenza Type A (PCR) (Negative) Influenza Type B (PCR) (Negative) RSV RNA Qual (PCR) (Negative) SARS-CoV-2 RNA (RT-PCR) (Negative) Discharge Plan Discharge Clinical Impression: COVID-19, Urinary tract infection Patient Disposition: Home, Self-Care Additional Instructions: He has tested positive for COVID today. I think this is probably the primary reason for the change in his behavior. I have provided a prescription for Paxlovid. A however there are 3 medications that should be held while he is on Paxlovid: alfusozin, amlodipine, and atorvastatin. Ideally these will be resumed 3 days after finishing the Paxlovid. He may also have some degree of a UTI. He received a dose of ceftriaxone here. A prescription for cephazolin ma be started tomorrow on November 20. Prescriptions: New cephalexin 500 mg capsule 500 mg PO BID Qty: 10 0RF Paxlovid 300 mg (150 mg x 2)-100 mg tablets,dose pack See Rx Instructions .ROUTE .COMPLEX Qty: 30 0RF Rx Instructions: take TWO 150 mg tablets of nirmatrelvir with ONE 100 mg tablet of ritonavir twice daily for 5 days No Action latanoprost 0.005 % Drops 1 drp OPHTHALMIC (EYE) BEDTIME atorvastatin 40 mg Tablet 40 mg PO DAILY sennosides-docusate sodium [Senna-S] 8.6-50 mg Tablet 2 tab-cap PO BEDTIME alfuzosin 10 mg Tablet Extended Release 24 Hr 10 mg PO DAILY Rx Instructions: administer after the same meal each day pregabalin 150 mg Capsule 150 mg PO BID cholecalciferol (vitamin D3) 25 mcg (1,000 unit) Tablet 50 mcg PO DAILY enoxaparin 40 mg/0.4 mL Syringe 40 mg subcut Q24H 42 Days Qty: 16.8 0RF oxycodone 5 mg Tablet 5 mg PO Q6H PRN (Reason: Pain, Moderate(Pain Scale 4-6)) Qty: 14 0RF Rx Instructions: Partial Fill upon patient request. insulin lispro [Humalog U-100 Insulin] 100 unit/mL Solution See Protocol subcut QIDACHS Qty: 10 0RF Protocol: Insulin Correction Scale Less than or equal to 110 ---- Give (units): 0 111 to 150 Give (units): 0 151 to 200 Give (units): 2 201 to 250 Give (units): 4 251 to 300 Give (units): 6 301 to 350 Give (units): 8 Greater than 350 Give (units): 10 Call MD if Blood Glucose > : 350 metformin 500 mg Tablet Extended Release 24 Hr 500 mg PO DAILY amlodipine 2.5 mg Tablet 2.5 mg PO DAILY Qty: 30 0RF Protocol: Hold for SBP< HOLD for SBP < : 90 Interventions: ED Discharge Assessment Last Done: 11/19/23 19:12
--- NOTE | 2023-11-19 14:06 | ECG_ITS ---
Test Reason : AMS Blood Pressure : / mmHG Vent. Rate : 108 BPM Atrial Rate : 108 BPM P-R Int : 164 ms QRS Dur : 064 ms QT Int : 348 ms P-R-T Axes : 066 007 074 degrees QTc Int : 466 ms Artifact in tracing Sinus tachycardia Nonspecific T wave abnormality Abnormal ECG When compared with ECG of 05-OCT-2023 14:01, QT has shortened Referred By: Manuelito Lopez Electronically Signed By:ALEXANDRE CASTELLANOS
--- NOTE | 2023-11-19 15:44 | PC.NURSE ---
Multiple nursing in to atempt IV line/lab work, at this time still unable to get access, attempt x2 being made with US
--- NOTE | 2023-11-19 16:08 | PC.NURSE ---
MD Lopez at bedside- was able to obtain labs w/ butterfly needle, however IV access was unobtainable. Emily RN at bedside with US to re-attempt access
[2023-11-19 16:13] LABS: MANUAL DIFF FLAG NO
[2023-11-19 16:17] LABS: Basophils Absolute Auto 0.1 X10*3/uL (0.0-0.2); Basophils Percent Auto 0.5 % (0-2); Hematocrit 31.2 % (42.0-52.0); Hemoglobin 10.3 g/dl (14.0-18.0); Imm Gran Abs Auto 0.08 X10*3/uL (0.00-0.03); Imm Gran Pct Auto 0.8 % (0.0-0.4); Lymphocytes Absolute Auto 0.9 X10*3/uL (1.2-4.9); Lymphocytes Percent Auto 8.4 % (20-40); Mean Corpuscular Hemoglobin 31.9 pg (27.0-33.0); Mean Corpuscular Volume 96.6 fL (80.0-98.0); Mean Platelet Volume 9.6 fL (9.4-12.4); Monocytes Absolute Auto 0.9 X10*3/uL (0.1-1.2); Monocytes Percent Auto 9.1 % (2-11); Neutrophils Absolute Auto 8.2 x10*3/uL (2.0-8.3); Neutrophils Percent Auto 81.2 % (45-73); Platelet Count 269 X10*3/uL (160-400); Red Blood Count 3.23 X10*6/uL (4.60-5.80); Red Cell Distribution Width 14.5 % (11.0-16.0); White Blood Count 10.1 X10*3/uL (4.8-10.8)
[2023-11-19 16:22] LABS: Prothrombin Time 12.5 SEC (11.1-13.3)
[2023-11-19 16:25] LABS: Lactic Acid 1.5 mmol/L (0.5-2.0)
[2023-11-19 16:29] LABS: Alanine Aminotransferase 13 U/L (0-40); Albumin Level 3.4 g/dL (3.5-5.0); Alkaline Phosphatase 112 U/L (39-117); Anion Gap 14 (12-20); Aspartate Amino Transferase 25 U/L (5-37); Bilirubin Direct 0.2 mg/dL (0.0-0.5); Bilirubin Total 0.4 mg/dL (0.0-1.0); Blood Urea Nitrogen 18 mg/dL (9-16); C Reactive Protein 5.12 mg/dL (< or = 0.50); Calcium 9.1 mg/dL (8.4-10.2); Carbon Dioxide 26 mmol/L (22-29); Chloride 103 mmol/L (96-108); Creatinine Clr Calc Pharmacy 61.6; Estimated Glomerular Filt Rate > 60; Glucose Random 141 mg/dL (60-115); Magnesium 1.9 mg/dL (1.6-2.6); Sodium 139 mmol/L (135-145); Total Protein 6.9 g/dL (6.5-8.0)
[2023-11-19] MEDS: 0.9 % Sodium Chloride 1,000 ML 999 ML IV ×2 (16:33→17:53)
--- NOTE | 2023-11-19 16:33 | PC.NURSE ---
NS infusing per order, SAMI allen successfully placed line in left AC
[2023-11-19 16:34] LABS: B Type Natriuretic Peptide 51 pg/mL (<100)
[2023-11-19 16:35] VITALS: BP 99/47; PULSE 96; RESP 16; TEMP 37.4; O2SAT 95
[2023-11-19 16:59] VITALS: BP 106/37; PULSE 97; RESP 18; O2SAT 97
[2023-11-19 17:00] LABS: Influenza A PCR NEGATIVE (Negative); Influenza B PCR NEGATIVE (Negative); Resp Syncy Virus RNA Qual PCR NEGATIVE (Negative); SARS COV2 PCR INHOUSE POSITIVE (Negative)
[2023-11-19 17:03] VITALS: TEMP 38
[2023-11-19 17:06] LABS: Appearance Urine Clear; Color Urine Dark Yellow; Glucose Urine UA Negative (Negative); Leukocyte Esterase Urine Trace (Negative); Nitrite Urine Positive (Negative); Specific Gravity - Urine >= 1.030 (1.005-1.025); UMIC TRIGGER UACC YES; Urine Blood Large (3+) (Negative); Urine Ketones Trace mg/dL (Negative); Urine Protein Trace mg/dL (Neg-Trace)
[2023-11-19 17:23] LABS: Bacteria Urine 3+ (None Seen); Hyaline Casts Urine 0-2 /LPF (0-2); RBC Urine >20 /HPF (0-2); Squamous Epithelial Cell Urine 0-2 /HPF (0-2); UACC Culture Trigger YES
[2023-11-19] MEDS: cefTRIAXone sodium 1 GM in 0.9 % Sodium Chloride 50 ML IV (17:53)
--- NOTE | 2023-11-19 18:54 | PC.NURSE ---
report called to nurse Amanda at [facility] on [address]- pt to be transported via BLS back to facility, time TBD
[2023-11-19 19:04] VITALS: BP 101/42; PULSE 93; RESP 17; TEMP 37.7; O2SAT 94
--- NOTE | 2023-11-19 19:12 | PC.NURSE ---
pt transported from [facility] back to [facility] on [address] via [facility] R[facility]SELL
== END 2023-11-19 19:12 | disposition home or self-care (01) ==
PROVIDERS: Emergency Provider Emergency Medicine; PCP Family Medicine Geriatric Medicine
DX: U07.1 COVID-19 (principal); N39.0 Urinary tract infection, site not specified; I10 Essential (primary) hypertension; E11.9 Type 2 diabetes mellitus without complications; F03.90 Unspecified dementia, unspecified severity, without behavioral disturbance, psychotic disturbance, mood disturbance, and anxiety; Z66 Do not resuscitate
CPT/HCPCS: 0241U; 71045; 80048; 80076; 81001; 83605; 83735; 83880; 85025; 85610; 86140; 87040; 87086; 87088; 87186; 93005; 96361; 96365; 99285; J0696

== ENCOUNTER → 2023-11-19 14:06 | Outpatient (BNV) | payer OTHER, SELFPAY | PROVIDERS: Emergency Provider Emergency Medicine; PCP Family Medicine Geriatric Medicine; Visit Provider Internal Medicine | DX: R94.31 Abnormal electrocardiogram [ECG] [EKG] (principal) | CPT/HCPCS: 93010 ==